=== PATIENT | female | born 1940 | race African-American/Black ===

== ENCOUNTER → 2016-09-18 | Outpatient (CLI) | payer MEDICARE, OTHER ==
[2016-04-15 08:52] VITALS: BP 161/68
[~2016-09-18] MED LIST: DIAZ5TAB PO; ESOM40CA PO; LEVO500T38 PO; LEVO50TA PO; LOSA50TA6 PO; MECL25TA3 PO; PRED-220 PO; PRED20TA PO; PROAIR HFA8.5 GM INH; SERT100T PO; TIOT18CA IH; VENTOLIN HFA18 GM INH
--- NOTE | 2016-09-18 13:03 | CARD ---
APPROVED REPORT EXAM: Two-dimensional and M-mode echocardiogram with Doppler and color Doppler. Other Information Quality : GoodHR: 92bpm Rhythm : NSR INDICATION Pulmonary Hypertention RISK FACTORS Smoking Smoked >40 yrs 2D DIMENSIONS RVDd1.3 (2.9-3.5cm)Left Atrium(2D)2.7 (1.6-4.0cm) IVSd0.6 (0.7-1.1cm)Aortic Root(2D)2.5 (2.0-3.7cm) LVDd3.7 (3.9-5.9cm)LVOT Diameter2.0 (1.8-2.4cm) PWd0.5 (0.7-1.1cm)LVDs2.5 (2.5-4.0cm) FS (%) 31.9 %SV35.8 ml LVEF(%)60.8 (>50%) Aortic Valve AoV Peak Eric.85.2cm/sAoV VTI18.1cm AO Peak GR.2.9mmHgLVOT Peak Eric.72.2cm/s AO Mean GR.2mmHgAVA (VMAX)2.68cm2 Mitral Valve MV E Ktaxrzxs16.8cm/sMV DECEL [id number] MV A Lutmqemr604.6cm/sE/A Ratio0.7 MV A Ebdcdmzg92vk Pulmonary Valve PV Peak Fegdubvy69.0cm/s Tricuspid Valve TR P. Yzpgzqwb892vk/sTR Peak Gr.54mmHg Pulmonary Vein S1 Lkfcjhwm56.1cm/sD2 Ftemnewp67.4cm/s PVa uptbgplu96uzow LEFT VENTRICLE The left ventricle is normal size. There is normal left ventricular wall thickness. The left ventricu lar systolic function is normal. The Ejection Fraction is 60-65%. There is normal LV segmental wall m otion. Transmitral Doppler flow pattern is Grade I-abnormal relaxation pattern. RIGHT VENTRICLE The right ventricle is normal size. There is normal right ventricular wall thickness. The right ventr icular systolic function is normal. ATRIA The left atrium size is normal. The right atrium size is normal. The interatrial septum is intact wit h no evidence for an atrial septal defect or patent foramen ovale as noted on 2-D or Doppler imaging. AORTIC VALVE The aortic valve is mildly sclerotic. The aortic valve is trileaflet. Doppler and Color Flow revealed no significant aortic regurgitation. There is no significant aortic valvular stenosis. MITRAL VALVE The mitral valve leaflets are moderately thickened. There is no evidence of mitral valve prolapse. Th ere is no mitral valve stenosis. Doppler and Color Flow revealed trace mitral regurgitation. TRICUSPID VALVE Doppler and Color Flow revealed mild tricuspid regurgitation. The pulmonary artery systolic pressure is estimated at 57 mmHg. There is moderate pulmonary hypertension. PULMONIC VALVE Doppler and Color Flow revealed no pulmonic valvular regurgitation. There is no pulmonic valvular elsa nosis. GREAT VESSELS The aortic root is normal in size. The ascending aorta is normal in size. The pulmonary artery is nor mal. The IVC is normal in size and collapses >50% with inspiration. PERICARDIAL EFFUSION There is no evidence of significant pericardial effusion. Critical Notification Critical Value: No <Conclusion> The left ventricular systolic function is normal. The Ejection Fraction is 60-65%. There is normal LV segmental wall motion. Transmitral Doppler flow pattern is Grade I-abnormal relaxation pattern. Trace mitral regurgitation. Mild tricuspid regurgitation. The pulmonary artery systolic pressure is estimated at 57 mmHg. There is moderate pulmonary hypertension. There is no evidence of significant pericardial effusion.
== END | disposition home or self-care (01) ==
LOC: ECHO 09:44
PROVIDERS: ATTEND Internal Medicine Critical Care Medicine
DX: I08.1 Rheumatic disorders of both mitral and tricuspid valves (principal)
CPT/HCPCS: 93306

== ENCOUNTER 2017-01-13 08:33 | Inpatient (IN) | payer MEDICARE, OTHER ==
[~2017-01-13] VITALS: Ht 149.9 cm; Wt 49.0 kg
[~2017-01-13 08:33] MED LIST changes: -LEVO500T38 PO; +LEVO500T59 PO
--- NOTE | 2017-01-13 08:38 | PHYS DOC ---
Past Medical History Past Medical History: COPD, Hypertension Past Surgical History: Cholecystectomy, Hysterectomy Additional Past Surgical Histo: partial thyroidectomy Alcohol Use: None Drug Use: None Adult General Chief Complaint Chief Complaint: SHORTNESS OF BREATH HPI HPI Patient is a 76 year old female who presents with was of breath. She states her symptoms started yesterday morning and then he got better and then this morning she felt very weak and short of breath. She denies any fevers chills nausea or productive cough. She states she has her inhalers but didn't use them as of yet because she didn't think that she needed them. She states she feels like she is wheezing. She does have a clerk analyst is Dr. Jason her primary care physicians Dr. Marte. Review of Systems Review of Systems Constitutional: Denies fever or chills [] Eyes: Denies change in visual acuity, redness, or eye pain [] HENT: Denies nasal congestion or sore throat [] Respiratory: Positive for cough and shortness of breath [] Cardiovascular: No additional information not addressed in HPI [] GI: Denies abdominal pain, nausea, vomiting, bloody stools or diarrhea [] : Denies dysuria or hematuria [] Musculoskeletal: Denies back pain or joint pain [] Integument: Denies rash or skin lesions [] Neurologic: Denies headache, focal weakness or sensory changes [] Endocrine: Denies polyuria or polydipsia [] Current Medications Current Medications Current Medications Medications (Trade) Dose Ordered Sig/Celia Start Time Stop Time Status Last Admin Dose Admin Acetaminophen (Tylenol) 1,000 mg 1X ONCE 01/13/17 09:30 01/13/17 09:31 DC 01/13/17 09:42 1,000 MG Albuterol/ Ipratropium (Duoneb) 3 ml 1X ONCE 01/13/17 09:00 01/13/17 09:01 DC 01/13/17 09:00 3 ML Azithromycin 250 ml @ 250 mls/hr 1X ONCE 01/13/17 09:15 01/13/17 10:14 DC 01/13/17 10:07 250 MLS/HR Methylprednisolone Sodium Succinate (SOLU-Medrol 125MG VIAL) 125 mg 1X ONCE 01/13/17 09:15 01/13/17 09:16 DC 01/13/17 09:43 125 MG Allergies Allergies Allergies Coded Allergies Type Severity Reaction Last Updated Verified No Known Medication Allergies Allergy Unknown 04/14/16 Yes codeine Adverse Reaction Intermediate vomiting 04/14/16 Yes Physical Exam Physical Exam Constitutional: Well developed, well nourished, no acute distress, non-toxic appearance. [] HENT: Normocephalic, atraumatic, bilateral external ears normal, oropharynx moist, no oral exudates, nose normal. [] Eyes: PERRLA, EOMI, conjunctiva normal, no discharge. [] Neck: Normal range of motion, no tenderness, supple, no stridor. [] Cardiovascular:Heart rate regular rhythm, no murmur [] Lungs & Thorax: Bilateral breath sounds clear to auscultation [] Abdomen: Bowel sounds normal, soft, no tenderness, no masses, no pulsatile masses. [] Skin: Warm, dry, no erythema, no rash. [] Back: No tenderness, no CVA tenderness. [] Extremities: No tenderness, no cyanosis, no clubbing, ROM intact, no edema. [] Neurologic: Alert and oriented X 3, normal motor function, normal sensory function, no focal deficits noted. [] Psychologic: Affect normal, judgement normal, mood normal. [] Current Patient Data Vital Signs Vital Signs Date Time Temp Pulse Resp B/P (MAP) Pulse Ox O2 Delivery O2 Flow Rate FiO2 01/13/17 10:10 99 24 151/65 (93) 99 Nasal Cannula 2.0 01/13/17 08:45 98.7 98.7 Lab Values Laboratory Tests Test 01/13/17 09:06 White Blood Count 6.0 x10^3/uL (4.0-11.0) Red Blood Count 3.62 x10^6/uL (3.50-5.40) Hemoglobin 11.0 g/dL (12.0-15.5) L Hematocrit 33.1 % (36.0-47.0) L Mean Corpuscular Volume 91 fL (79-100) Mean Corpuscular Hemoglobin 31 pg (25-35) Mean Corpuscular Hemoglobin Concent 33 g/dL (31-37) Red Cell Distribution Width 14.2 % (11.5-14.5) Platelet Count 151 x10^3/uL (140-400) Neutrophils (%) (Auto) 63 % (31-73) Lymphocytes (%) (Auto) 31 % (24-48) Monocytes (%) (Auto) 3 % (0-9) Eosinophils (%) (Auto) 2 % (0-3) Basophils (%) (Auto) 1 % (0-3) Neutrophils # (Auto) 3.8 x10^3uL (1.8-7.7) Lymphocytes # (Auto) 1.9 x10^3/uL (1.0-4.8) Monocytes # (Auto) 0.2 x10^3/uL (0.0-1.1) Eosinophils # (Auto) 0.1 x10^3/uL (0.0-0.7) Basophils # (Auto) 0.1 x10^3/uL (0.0-0.2) Sodium Level 139 mmol/L (136-145) Potassium Level 4.1 mmol/L (3.5-5.1) Chloride Level 100 mmol/L (98-107) Carbon Dioxide Level 35 mmol/L (21-32) H Anion Gap 4 (6-14) L Blood Urea Nitrogen 8 mg/dL (7-20) Creatinine 0.9 mg/dL (0.6-1.0) Estimated GFR (Cockcroft-Gault) 73.5 Glucose Level 110 mg/dL (70-99) H Calcium Level 9.2 mg/dL (8.5-10.1) Magnesium Level 1.9 mg/dL (1.8-2.4) Total Bilirubin 0.4 mg/dL (0.2-1.0) Direct Bilirubin 0.1 mg/dL (0.0-0.2) Aspartate Amino Transferase (AST) 20 U/L (15-37) Alanine Aminotransferase (ALT) 22 U/L (14-59) Alkaline Phosphatase 65 U/L (46-116) Creatine Kinase 82 U/L (26-192) Creatine Kinase MB (Mass) 0.9 ng/mL (0.0-3.6) Creatine Kinase MB Relative Index 1.1 % (0-4) Troponin I Quantitative < 0.017 ng/mL (0.000-0.055) BK-Ums-X-Type Natriuretic Peptide 291 pg/mL (0-449) Total Protein 8.1 g/dL (6.4-8.2) Albumin 3.9 g/dL (3.4-5.0) Lipase 72 U/L (73-393) L Laboratory Tests 01/13/17 09:06 Laboratory Tests 01/13/17 09:06 EKG EKG EKG shows sinus tachycardia [address] elevations or T-wave inversions, normal axis, QTC 447 ms, as interpreted by me. Radiology/Procedures Radiology/Procedures [facility] [address] [place] [address] IMAGING REPORT Signed PATIENT: MAN LAMBERT ACCOUNT: [id number] : 1940 LOCATION: ER AGE: 76 SEX: F EXAM STATUS: PRE ER ORD. PHYSICIAN: DREA ABDUL MD REASON: soa PROCEDURE: PORTABLE CHEST 1V Portable chest, 01/13/2017: History: Shortness of breath, cough Comparison is made to a study from 01/28/2016. The heart size is normal. No pulmonary infiltrate is seen. There is no evidence of pleural fluid. IMPRESSION: No acute cardiopulmonary abnormality is detected. DICTATED and SIGNED BY: KATALINA ALEXANDER MD DATE: 01/13/17902 CC: DREA ABDUL MD; ALISHA MARTE MD ~ Impressions: COPD exacerbation Course & Med Decision Making Course & Med Decision Making Pertinent Labs and Imaging studies reviewed. (See chart for details) Chest x-ray did not show acute abnormality's. She received Solu-Medrol, DuoNeb nebs, and azithromycin IV. Spoke with Dr. Tello regarding consultation and Dr. Marte regarding admission. Patient's in stable and agreeable condition this time. Orders have been written. Dragon Disclaimer Dragon Disclaimer This electronic medical record was generated, in whole or in part, using a voice recognition dictation system. Departure Departure Impression: Primary Impression: COPD with acute exacerbation Disposition: ADMITTED INPATIENT Admitting Physician: Alisha Marte Condition: STABLE Referrals: ALISHA MARTE MD (PCP) DREA ABDUL MD Jan 13, 2017 08:38
[2017-01-13] MEDS ORDERED: IPRATRPIUM/ALBUTEROL 0.5/2.5MG 3 ML NEBU. NEB ONE (09:00)
--- NOTE | 2017-01-13 09:07 | RAD ---
Portable chest, 01/13/2017: History: Shortness of breath, cough Comparison is made to a study from 01/28/2016. The heart size is normal. No pulmonary infiltrate is seen. There is no evidence of pleural fluid. IMPRESSION: No acute cardiopulmonary abnormality is detected.
--- NOTE | 2017-01-13 09:07 | EKG ---
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
[2017-01-13] MEDS ORDERED: AZITHRMYCN 500MG IVPB FOR OMNI 250 ML IV ONE (09:15)
[2017-01-13] MEDS ORDERED: methylPREDNISolone SOD SUCC PF 125 MG/2 ML VIAL. IV ONE (09:15)
[2017-01-13 09:18] LABS: BASO # 0.1 x10^3/uL (0.0-0.2); BASO % 1 % (0-3); EOS % 2 % (0-3); HEMATOCRIT 33.1 % (36.0-47.0); LYMPH # 1.9 x10^3/uL (1.0-4.8); LYMPH % 31 % (24-48); MEAN CORPUSCULAR HEMOGLOBIN 31 pg (25-35); MEAN CORPUSCULAR HGB CONC 33 g/dL (31-37); MEAN CORPUSCULAR VOLUME 91 fL (79-100); MONO % 3 % (0-9); NEUT % 63 % (31-73); PLATELET COUNT 151 x10^3/uL (140-400); RED BLOOD COUNT 3.62 x10^6/uL (3.50-5.40); RED CELL DISTRIBUTION WIDTH 14.2 % (11.5-14.5)
[2017-01-13 09:30] LABS: CALCIUM 9.2 mg/dL (8.5-10.1); CREATININE 0.9 mg/dL (0.6-1.0); GFR 73.5; POTASSIUM 4.1 mmol/L (3.5-5.1)
[2017-01-13] MEDS ORDERED: ACETAMINOPHEN 500 MG TABLET PO ONE (09:30)
[2017-01-13 09:35] LABS: ALBUMIN 3.9 g/dL (3.4-5.0); DIRECT BILIRUBIN 0.1 mg/dL (0.0-0.2); MAGNESIUM 1.9 mg/dL (1.8-2.4); TOTAL BILIRUBIN 0.4 mg/dL (0.2-1.0); TOTAL PROTEIN 8.1 g/dL (6.4-8.2)
[2017-01-13 09:43] LABS: CKMB MASS 0.9 ng/mL (0.0-3.6)
[2017-01-13 10:25] LABS: INR 1.2 (0.8-1.1); PROTHROMBIN TIME PATIENT 14.5 SEC (11.7-14.0)
[2017-01-13 10:43] LABS: BILIRUBIN,URINE NEGATIVE (NEG); GLUCOSE,URINE NEGATIVE (NEG); NITRITE,URINE NEGATIVE (NEG); PROTEIN,URINE NEGATIVE (NEG-TRACE); UROBILINOGEN,URINE 0.2 mg/dL (0.2 mg/dL)
[2017-01-13 10:44] LABS: BACTERIA,URINE 0 /HPF (0-FEW); RBC,URINE 0 /HPF (0-2); SQUAMOUS EPITHELIAL CELL,UR FEW /LPF; WBC,URINE 0 /HPF (0-4)
--- NOTE | 2017-01-13 11:26 | ACF ---
Admit Criteria Forms Admit Criteria Forms Admit Criteria Forms COPD Clinical Indications for Admission to Inpatient Care ([place]/check or initial the applicable condition/criteria) Admission is indicated for ANY ONE of the following (1)(2)(3): [ ]I. Acute exacerbation by high-risk comorbidity(e.g., pneumonia, dysrhythmia, heart failure, pleural effusion, pneumothorax) or severe underlying COPD (eg, baseline FEV1 less than 50% predicted) [X ]II. Inpatient admission required[A] rather than observation care (see Chronic Obstructive Pulmonary Disease: Observation Care) because of ANY ONE of the following: [X ]a) New or pre-existing signs or symptoms of COPD (eg, dyspnea or Tachypnea at rest or with minimal activity) that persist despite outpatient and observation care treatment [ ]b) New-onset hypoxemia (room air SaO2 less than 90%, PO2 less than 60 mm Hg (8.0 kPa)) that persists despite outpatient and observation care treatment [ ]c) Worsening of pre-existing hypoxemia (eg, new or increased requirement for supplemental oxygen to maintain oxygenation at baseline level) that persists despite outpatient and observation care treatment, with oxygen treatment needs performable only in acute inpatient setting [ ]d) Hypercarbia (PCO2 greater than 40 mm Hg (5.3 kPa))-induced respiratory acidosis (pH less than 7.35) that persists despite outpatient and observation care treatment [ ]e) Supplemental oxygen or respiratory treatments for over 24 hours that are performable only in acute inpatient setting [ ]f) Chest tube placement with active evacuation (e.g., suction, drainage) (6) [ ]g) Other condition, treatment or monitoring requiring inpatient admission [ ]III. Planned invasive surgical or diagnostic procedures requiring acute- care hospitalization [ ]IV. Acute respiratory failure (e.g., uncompensated hypercarbia, severe hypoxemia) [ ]V. Severe comorbid condition (e.g., severe steroid myopathy, acute vertebral fracture) that has acutely worsened pulmonary function [ ]. Altered mental status that is severe or persistent Extended stay beyond goal length of stay may be needed for (29)(30)(31)(32)(33) : [ ]a ) Respiratory Failure. [ ]b) Severe or persisting hypoxemia or hypercarbia [ ]c) Severe or persistent dyspnea [ ]d) Clinically significant Comorbidities (e.g. chronic heart failure, atrial fibrillation with rapid response, pneumonia)(36) [ ]e) Malnutrition (33) The original [facility] [employer] content created by [facility] [employer] has been revised. The portions of the content which have been revised are identified through the use of italic text, and [facility] has neither reviewed nor approved the modified material. All other unmodified content is copyright [facility] [employer]. Please see references footnoted in the original [facility] [employer] edition 2014 ALEXANDRA LE Jan 13, 2017 11:26
[2017-01-13] MEDS ORDERED: diazePAM 5 MG TABLET PO ONE (12:15)
[2017-01-13 12:55] VITALS: BP 148/65
[2017-01-13] MEDS ORDERED: MULT1TAB52 PO (14:02)
[2017-01-13] MEDS ORDERED: BENZ200C47 PO (14:02)
[2017-01-13] MEDS ORDERED: CALC500T30 PO (14:02)
[2017-01-13] MEDS ORDERED: BUDE10.22 IH (14:20)
[2017-01-13] MEDS ORDERED: ESOM40CA PO (14:20)
[2017-01-13] MEDS ORDERED: MECLIZINE HCL 12.5 MG TABLET. PO PRN (14:30)
[2017-01-13 15:00] VITALS: BP 101/37
--- NOTE | 2017-01-13 15:07 | PDOC ---
Provider Note Provider Note dictated DAVID RICHTER MD Jan 13, 2017 15:07
--- NOTE | 2017-01-13 15:24 | CONS ---
DATE OF CONSULTATION: 01/13/2017 ATTENDING PHYSICIAN: Dr. Marte REASON FOR CONSULTATION: Dyspnea, cough. HISTORY OF PRESENT ILLNESS: The patient is a pleasant 76-year-old female who has history of severe oxygen dependent chronic obstructive airway disease and sees me in the office. She presented to the hospital with complaint of cough, which has been nonproductive since Friday. The patient was starting to hurt in her chest with the coughing. The patient then began to have shortness of breath. She was seen in the Emergency Room where a chest x-ray was reviewed by me and does not show any definite infiltrates. She was having pain in the back of the chest as well. No fever, no chills, no headaches. No nausea, vomiting or diarrhea. No focal weakness. No leg edema. She has been on home oxygen at 2 liters on a 24-hour basis and saturations were 95% on 2 liters. I have been asked to see her for further evaluation. PAST MEDICAL HISTORY: Significant for history of severe chronic obstructive pulmonary disease, which is oxygen dependent; history of hypertension. PAST SURGICAL HISTORY: Cholecystectomy, hysterectomy and partial thyroidectomy. ALLERGIES: CODEINE. CURRENT MEDICATIONS: Reviewed as listed in the MRAD. REVIEW OF SYSTEMS: Twelve-point system obtained. Pertinent positive discussed in my history of present illness, otherwise noncontributory. All systems that were negative were reviewed as well. SOCIAL HISTORY: Has a long history of tobacco use, but no longer smokes cigarettes. PHYSICAL EXAMINATION: GENERAL: She is awake, following commands. VITAL SIGNS: Reviewed. Blood pressure 148/65, pulse ox is 95% on 2 liters, afebrile. HEENT: Sclerae nonicteric. NECK: Supple. LUNGS: Diminished breath sounds with prolonged expiratory phase. No wheezing. CARDIOVASCULAR: Regular rate and rhythm. ABDOMEN: Soft. EXTREMITIES: With no pitting edema. LABORATORY DATA: Reviewed. White cell count 6.0, hemoglobin 11.0 and platelets are 151. BUN is 8, creatinine 0.9. IMPRESSION: 1. Acute exacerbation of chronic obstructive pulmonary disease triggered by acute bronchitis. 2. Acute bronchitis, probably viral. No definite pneumonia seen on the chest x-ray. 3. History of chronic hypoxic respiratory failure, currently on 2 liters, which is her baseline. RECOMMENDATIONS: 1. Continue with present bronchodilators with DuoNeb. 2. Continue with steroid nebulizer. 3. IV steroids. 4. Noncontrast CT chest to better assess for any lung infiltrates. 5. Cough suppressant with Tessalon Pearle. 6. Continue oxygen at 2 liters. 7. Add empiric antibiotic. 8. We will follow along with you. Possible discharge in 24 hours. DAVID RICHTER MD DR: KARI/harman JOB#: [id number] / [id number]
[2017-01-13] MEDS ORDERED: IPRATRPIUM/ALBUTEROL 0.5/2.5MG 3 ML NEBU. NEB SCH (16:00)
--- NOTE | 2017-01-13 16:22 | RAD ---
CT of the chest without contrast, 01/13/2017: History: Shortness of breath Noncontrast scans were obtained as requested. Comparison is made to a study from 03/13/2015. There is mild calcific plaquing of the thoracic aorta without evidence of aneurysm. The heart size is normal. Small mediastinal lymph nodes are evident without pathologic enlargement. There are mild emphysematous changes in the lungs. There are unchanged bilateral apical pleural-parenchymal opacities compatible with scarring. A few other scattered linear parenchymal scars are present in both lungs. There is an unchanged streaky opacity in the posterior aspect of the right upper lobe compatible with scarring. Mild peripheral infiltrate in the anterolateral inferior aspect of the right middle lobe medially has progressed slightly. There is no other evidence of acute consolidation or mass. There is no evidence of pleural fluid. IMPRESSION: 1. Emphysema with pleural/parenchymal scarring. 2. Minimal peripheral infiltrate in the anterior aspect of the right middle lobe has progressed slightly since 03/13/2015. This may represent progressive scarring or active inflammation. A neoplastic etiology is less likely. PQRS Compliance Statement: One or more of the following individualized dose reduction techniques were utilized for this examination: 1. Automated exposure control 2. Adjustment of the mA and/or kV according to patient size 3. Use of iterative reconstruction technique
[2017-01-13] MEDS: DOXYCYCLINE HYCLATE 100 MG TABLET PO SCH ×2 (17:26→21:03)
[2017-01-13] MEDS: BUDESONIDE 0.5 MG/2 ML NEBU. NEB SCH (19:15)
[2017-01-13] MEDS: ALBUTEROL SULFATE 2.5 MG/3 ML NEBU. NEB SCH (19:15)
[2017-01-13 19:49] VITALS: BP 136/58
[2017-01-13] MEDS ORDERED: NON FORMULARY ITEM (Budesonide/Formoterol Fumarate (Symbicort 80-4.5 Mcg Inhaler) 2 PUFF) IH SCH (21:00)
[2017-01-13] MEDS ORDERED: BENZONATATE 100 MG CAPSULE. PO PRN (21:00)
[2017-01-13] MEDS: methylPREDNISolone SOD SUCC PF 125 MG/2 ML VIAL. IV SCH (21:03)
[2017-01-13 22:44] VITALS: BP 173/74
[2017-01-14 03:00] VITALS: BP 139/87
[2017-01-14 05:24] LABS: BASO % 0 % (0-3); EOS % 0 % (0-3); HEMATOCRIT 29.6 % (36.0-47.0); HEMOGLOBIN 10.2 g/dL (12.0-15.5); LYMPH # 0.8 x10^3/uL (1.0-4.8); LYMPH % 12 % (24-48); MEAN CORPUSCULAR HEMOGLOBIN 31 pg (25-35); MEAN CORPUSCULAR HGB CONC 34 g/dL (31-37); MEAN CORPUSCULAR VOLUME 90 fL (79-100); MONO % 1 % (0-9); NEUT % 87 % (31-73); PLATELET COUNT 140 x10^3/uL (140-400); RED CELL DISTRIBUTION WIDTH 14.2 % (11.5-14.5); WHITE BLOOD COUNT 6.5 x10^3/uL (4.0-11.0)
[2017-01-14 05:39] LABS: CREATININE 0.8 mg/dL (0.6-1.0); GFR 84.2
[2017-01-14] MEDS: LEVOTHYROXINE 50 MCG TABLET PO SCH (05:56)
[2017-01-14] MEDS: methylPREDNISolone SOD SUCC PF 125 MG/2 ML VIAL. IV SCH ×3 (05:57→20:57)
[2017-01-14 07:00] VITALS: BP 142/59
[2017-01-14] MEDS: BUDESONIDE 0.5 MG/2 ML NEBU. NEB SCH ×2 (07:41→20:15)
[2017-01-14] MEDS: ALBUTEROL SULFATE 2.5 MG/3 ML NEBU. NEB SCH ×4 (07:41→20:15)
[2017-01-14 07:42] LABS: PLT ESTIMATE ADEQUATE (ADEQUATE)
[2017-01-14] MEDS ORDERED: NON FORMULARY ITEM (Albuterol Sulfate (Proair Hfa Inhaler) 1 PUFF) INH SCH (08:00)
[2017-01-14] MEDS ORDERED: NON FORMULARY ITEM (Tiotropium Bromide (Spiriva) 2 INH) IH SCH (08:00)
--- NOTE | 2017-01-14 08:06 | PDOC ---
PROGRESS NOTES Subjective Subjective Patient reports breathing (at rest) is better than at admission. Hasn't been out of bed yet. Doesn't feel ready to go home today. Objective Objective Vital Signs Date Time Temp Pulse Resp B/P (MAP) Pulse Ox O2 Delivery O2 Flow Rate FiO2 01/14/17 07:43 100 Nasal Cannula 2.0 01/14/17 03:00 98.3 61 18 139/87 (104) 98.3 Intake and Output 01/14/17 06:59 Intake Total 500 ml Output Total 1150 ml Balance -650 ml Intake Oral 250 ml IV Total 250 ml Output Urine Total 1150 ml # Voids 2 Physical Exam Abdomen: Normal bowel sounds, Soft, No tenderness Heart: Regular rate Extremities: No edema General: Alert, Oriented X3, No acute distress Lungs: Other (BS moderately decreased throughout, no wheezes, no cough during exam) Assessment Assessment Problems Medical Problems: (1) COPD with acute exacerbation Status: Acute Plan Plan of Care 1. Acute on chronic respiratory failure with acute bronchitis - stable, not hypoxic on her usual O2 per NC. CXR without infiltrate. Some improvement in patient's symptoms overnight. Continue IV Solumedrol, Doxycycine, O2 and nebs. Increased activity level today. 2. chronic anxiety - stable, intermittent tachycardia is not unusual for patient. Continue home meds. 3. HTN - continue home meds. 4. glucose intolerance - diet controlled, continue ADA diet. 5. hypothyroidism - good on recent lab, continue present dose of Levothyroxine. Comment Review of Relevant I have reviewed the following items elliott (where applicable) has been applied. Labs Laboratory Tests Test 01/13/17 09:06 01/13/17 10:05 01/13/17 16:00 01/13/17 22:05 White Blood Count 6.0 x10^3/uL (4.0-11.0) Red Blood Count 3.62 x10^6/uL (3.50-5.40) Hemoglobin 11.0 g/dL (12.0-15.5) Hematocrit 33.1 % (36.0-47.0) Mean Corpuscular Volume 91 fL (79-100) Mean Corpuscular Hemoglobin 31 pg (25-35) Mean Corpuscular Hemoglobin Concent 33 g/dL (31-37) Red Cell Distribution Width 14.2 % (11.5-14.5) Platelet Count 151 x10^3/uL (140-400) Neutrophils (%) (Auto) 63 % (31-73) Lymphocytes (%) (Auto) 31 % (24-48) Monocytes (%) (Auto) 3 % (0-9) Eosinophils (%) (Auto) 2 % (0-3) Basophils (%) (Auto) 1 % (0-3) Neutrophils # (Auto) 3.8 x10^3uL (1.8-7.7) Lymphocytes # (Auto) 1.9 x10^3/uL (1.0-4.8) Monocytes # (Auto) 0.2 x10^3/uL (0.0-1.1) Eosinophils # (Auto) 0.1 x10^3/uL (0.0-0.7) Basophils # (Auto) 0.1 x10^3/uL (0.0-0.2) Sodium Level 139 mmol/L (136-145) Potassium Level 4.1 mmol/L (3.5-5.1) Chloride Level 100 mmol/L (98-107) Carbon Dioxide Level 35 mmol/L (21-32) Anion Gap 4 (6-14) Blood Urea Nitrogen 8 mg/dL (7-20) Creatinine 0.9 mg/dL (0.6-1.0) Estimated GFR (Cockcroft-Gault) 73.5 Glucose Level 110 mg/dL (70-99) Lactic Acid Level 0.7 mmol/L (0.4-2.0) Calcium Level 9.2 mg/dL (8.5-10.1) Magnesium Level 1.9 mg/dL (1.8-2.4) Total Bilirubin 0.4 mg/dL (0.2-1.0) Direct Bilirubin 0.1 mg/dL (0.0-0.2) Aspartate Amino Transf (AST/SGOT) 20 U/L (15-37) Alanine Aminotransferase (ALT/SGPT) 22 U/L (14-59) Alkaline Phosphatase 65 U/L (46-116) Creatine Kinase 82 U/L (26-192) Creatine Kinase MB (Mass) 0.9 ng/mL (0.0-3.6) Creatine Kinase MB Relative Index 1.1 % (0-4) Troponin I Quantitative < 0.017 ng/mL (0.000-0.055) < 0.017 ng/mL (0.000-0.055) < 0.017 ng/mL (0.000-0.055) FY-Nzb-[id number]-Type Natriuretic Peptide 291 pg/mL (0-449) Total Protein 8.1 g/dL (6.4-8.2) Albumin 3.9 g/dL (3.4-5.0) Lipase 72 U/L (73-393) Procalcitonin < 0.10 ng/mL (0.00-0.10) Prothrombin Time 14.5 SEC (11.7-14.0) Prothromb Time International Ratio 1.2 (0.8-1.1) Urine Collection Type Unknown Urine Color Yellow Urine Clarity Clear Urine pH 6.0 Urine Specific [place] <=1.005 Urine Protein Negative mg/dL (NEG-TRACE) Urine Glucose (UA) Negative mg/dL (NEG) Urine Ketones (Stick) Negative mg/dL (NEG) Urine Blood Negative (NEG) Urine Nitrite Negative (NEG) Urine Bilirubin Negative (NEG) Urine Urobilinogen Dipstick 0.2 mg/dL (0.2 mg/dL) Urine Leukocyte Esterase Negative (NEG) Urine RBC 0 /HPF (0-2) Urine WBC 0 /HPF (0-4) Urine Squamous Epithelial Cells Few /LPF Urine Bacteria 0 /HPF (0-FEW) Test 01/14/17 04:33 White Blood Count 6.5 x10^3/uL (4.0-11.0) Red Blood Count 3.30 x10^6/uL (3.50-5.40) Hemoglobin 10.2 g/dL (12.0-15.5) Hematocrit 29.6 % (36.0-47.0) Mean Corpuscular Volume 90 fL (79-100) Mean Corpuscular Hemoglobin 31 pg (25-35) Mean Corpuscular Hemoglobin Concent 34 g/dL (31-37) Red Cell Distribution Width 14.2 % (11.5-14.5) Platelet Count 140 x10^3/uL (140-400) Neutrophils (%) (Auto) 87 % (31-73) Lymphocytes (%) (Auto) 12 % (24-48) Monocytes (%) (Auto) 1 % (0-9) Eosinophils (%) (Auto) 0 % (0-3) Basophils (%) (Auto) 0 % (0-3) Neutrophils # (Auto) 5.7 x10^3uL (1.8-7.7) Lymphocytes # (Auto) 0.8 x10^3/uL (1.0-4.8) Monocytes # (Auto) 0.1 x10^3/uL (0.0-1.1) Eosinophils # (Auto) 0.0 x10^3/uL (0.0-0.7) Basophils # (Auto) 0.0 x10^3/uL (0.0-0.2) Segmented Neutrophils % 95 % (35-66) Band Neutrophils % 1 % (0-9) Lymphocytes % 4 % (24-48) Platelet Estimate Adequate (ADEQUATE) Sodium Level 138 mmol/L (136-145) Potassium Level 4.0 mmol/L (3.5-5.1) Chloride Level 100 mmol/L (98-107) Carbon Dioxide Level 34 mmol/L (21-32) Anion Gap 4 (6-14) Blood Urea Nitrogen 9 mg/dL (7-20) Creatinine 0.8 mg/dL (0.6-1.0) Estimated GFR (Cockcroft-Gault) 84.2 Glucose Level 153 mg/dL (70-99) Calcium Level 9.0 mg/dL (8.5-10.1) Laboratory Tests Test 01/13/17 09:06 01/13/17 10:05 01/13/17 16:00 01/13/17 22:05 White Blood Count 6.0 x10^3/uL (4.0-11.0) Red Blood Count 3.62 x10^6/uL (3.50-5.40) Hemoglobin 11.0 g/dL (12.0-15.5) Hematocrit 33.1 % (36.0-47.0) Mean Corpuscular Volume 91 fL (79-100) Mean Corpuscular Hemoglobin 31 pg (25-35) Mean Corpuscular Hemoglobin Concent 33 g/dL (31-37) Red Cell Distribution Width 14.2 % (11.5-14.5) Platelet Count 151 x10^3/uL (140-400) Neutrophils (%) (Auto) 63 % (31-73) Lymphocytes (%) (Auto) 31 % (24-48) Monocytes (%) (Auto) 3 % (0-9) Eosinophils (%) (Auto) 2 % (0-3) Basophils (%) (Auto) 1 % (0-3) Neutrophils # (Auto) 3.8 x10^3uL (1.8-7.7) Lymphocytes # (Auto) 1.9 x10^3/uL (1.0-4.8) Monocytes # (Auto) 0.2 x10^3/uL (0.0-1.1) Eosinophils # (Auto) 0.1 x10^3/uL (0.0-0.7) Basophils # (Auto) 0.1 x10^3/uL (0.0-0.2) Sodium Level 139 mmol/L (136-145) Potassium Level 4.1 mmol/L (3.5-5.1) Chloride Level 100 mmol/L (98-107) Carbon Dioxide Level 35 mmol/L (21-32) Anion Gap 4 (6-14) Blood Urea Nitrogen 8 mg/dL (7-20) Creatinine 0.9 mg/dL (0.6-1.0) Estimated GFR (Cockcroft-Gault) 73.5 Glucose Level 110 mg/dL (70-99) Lactic Acid Level 0.7 mmol/L (0.4-2.0) Calcium Level 9.2 mg/dL (8.5-10.1) Magnesium Level 1.9 mg/dL (1.8-2.4) Total Bilirubin 0.4 mg/dL (0.2-1.0) Direct Bilirubin 0.1 mg/dL (0.0-0.2) Aspartate Amino Transf (AST/SGOT) 20 U/L (15-37) Alanine Aminotransferase (ALT/SGPT) 22 U/L (14-59) Alkaline Phosphatase 65 U/L (46-116) Creatine Kinase 82 U/L (26-192) Creatine Kinase MB (Mass) 0.9 ng/mL (0.0-3.6) Creatine Kinase MB Relative Index 1.1 % (0-4) Troponin I Quantitative < 0.017 ng/mL (0.000-0.055) < 0.017 ng/mL (0.000-0.055) < 0.017 ng/mL (0.000-0.055) TO-Qeo-Z-Type Natriuretic Peptide 291 pg/mL (0-449) Total Protein 8.1 g/dL (6.4-8.2) Albumin 3.9 g/dL (3.4-5.0) Lipase 72 U/L (73-393) Procalcitonin < 0.10 ng/mL (0.00-0.10) Prothrombin Time 14.5 SEC (11.7-14.0) Prothromb Time International Ratio 1.2 (0.8-1.1) Urine Collection Type Unknown Urine Color Yellow Urine Clarity Clear Urine pH 6.0 Urine Specific [place] <=1.005 Urine Protein Negative mg/dL (NEG-TRACE) Urine Glucose (UA) Negative mg/dL (NEG) Urine Ketones (Stick) Negative mg/dL (NEG) Urine Blood Negative (NEG) Urine Nitrite Negative (NEG) Urine Bilirubin Negative (NEG) Urine Urobilinogen Dipstick 0.2 mg/dL (0.2 mg/dL) Urine Leukocyte Esterase Negative (NEG) Urine RBC 0 /HPF (0-2) Urine WBC 0 /HPF (0-4) Urine Squamous Epithelial Cells Few /LPF Urine Bacteria 0 /HPF (0-FEW) Test 01/14/17 04:33 White Blood Count 6.5 x10^3/uL (4.0-11.0) Red Blood Count 3.30 x10^6/uL (3.50-5.40) Hemoglobin 10.2 g/dL (12.0-15.5) Hematocrit 29.6 % (36.0-47.0) Mean Corpuscular Volume 90 fL (79-100) Mean Corpuscular Hemoglobin 31 pg (25-35) Mean Corpuscular Hemoglobin Concent 34 g/dL (31-37) Red Cell Distribution Width 14.2 % (11.5-14.5) Platelet Count 140 x10^3/uL (140-400) Neutrophils (%) (Auto) 87 % (31-73) Lymphocytes (%) (Auto) 12 % (24-48) Monocytes (%) (Auto) 1 % (0-9) Eosinophils (%) (Auto) 0 % (0-3) Basophils (%) (Auto) 0 % (0-3) Neutrophils # (Auto) 5.7 x10^3uL (1.8-7.7) Lymphocytes # (Auto) 0.8 x10^3/uL (1.0-4.8) Monocytes # (Auto) 0.1 x10^3/uL (0.0-1.1) Eosinophils # (Auto) 0.0 x10^3/uL (0.0-0.7) Basophils # (Auto) 0.0 x10^3/uL (0.0-0.2) Segmented Neutrophils % 95 % (35-66) Band Neutrophils % 1 % (0-9) Lymphocytes % 4 % (24-48) Platelet Estimate Adequate (ADEQUATE) Sodium Level 138 mmol/L (136-145) Potassium Level 4.0 mmol/L (3.5-5.1) Chloride Level 100 mmol/L (98-107) Carbon Dioxide Level 34 mmol/L (21-32) Anion Gap 4 (6-14) Blood Urea Nitrogen 9 mg/dL (7-20) Creatinine 0.8 mg/dL (0.6-1.0) Estimated GFR (Cockcroft-Gault) 84.2 Glucose Level 153 mg/dL (70-99) Calcium Level 9.0 mg/dL (8.5-10.1) Medications Current Medications Albuterol/ Ipratropium (Duoneb) 3 ml 1X ONCE NEB Last administered on 09:00; Start 01/13/17 at 09:00; Stop 01/13/17 at 09:01; Status DC Methylprednisolone Sodium Succinate (SOLU-Medrol 125MG VIAL) 125 mg 1X ONCE IV Last administered on 01/13/17 09:43; Start 01/13/17 at 09:15; Stop 01/13/17 at 09:16; Status DC Azithromycin 250 ml @ 250 mls/hr 1X ONCE IV Last administered on 01/13/17 10 :07; Start 01/13/17 at 09:15; Stop 01/13/17 at 10:14; Status DC Acetaminophen (Tylenol) 1,000 mg 1X ONCE PO Last administered on 01/13/17 09: 42; Start 01/13/17 at 09:30; Stop 01/13/17 at 09:31; Status DC Diazepam (Valium) 5 mg 1X ONCE PO Last administered on 01/13/17 12:11; Start 01/13/17 at 12:15; Stop 01/13/17 at 12:16; Status DC Calcium Carbonate/ Glycine (Oscal) 500 mg DAILY PO ; Start 01/14/17 at 09:00 Diazepam (Valium) 5 mg DAILY08 PO ; Start 01/14/17 at 08:00 Levothyroxine Sodium (Synthroid) 50 mcg DAILY06 PO Last administered on 05:56; Start 01/14/17 at 06:00 Losartan Potassium (Cozaar) 50 mg DAILY PO ; Start 01/14/17 at 09:00 Non-Formulary Medication 1 puff DAILY08 INH ; Start 01/14/17 at 08:00; Status UNV Benzonatate (Tessalon Perle) 200 mg PRN TID PRN PO COUGH Last administered on 00:51; Start 01/13/17 at 21:00 Non-Formulary Medication 2 puff BID IH ; Start 01/13/17 at 21:00; Status UNV Pantoprazole Sodium (Protonix) 40 mg DAILYAC PO ; Start 01/14/17 at 07:30 Meclizine HCl (Antivert) 25 mg PRN TID PRN PO DIZZINESS; Start 01/13/17 at 14: 30 Multivitamins (Thera M Plus) 1 tab DAILY PO ; Start 01/14/17 at 09:00 Non-Formulary Medication 2 inh DAILY08 IH ; Start 01/14/17 at 08:00; Status UNV Sertraline HCl (Zoloft) 100 mg DAILY PO ; Start 01/14/17 at 09:00 Methylprednisolone Sodium Succinate (SOLU-Medrol 125MG VIAL) 60 mg Q8HRS IV Last administered on 01/14/17 05:57; Start 01/13/17 at 22:00 Albuterol/ Ipratropium (Duoneb) 3 ml RTQID NEB Last administered on 01/13/17 15:53; Start 01/13/17 at 16:00; Stop 01/13/17 at 17:01; Status DC Budesonide (Pulmicort) 0.5 mg RTBID NEB Last administered on 01/14/17 07:41; Start 01/13/17 at 20:00 Doxycycline Hyclate (Vibra-Tab) 100 mg BID PO Last administered on 01/13/17 21 :03; Start 01/13/17 at 15:30 Albuterol Sulfate (Ventolin Neb Soln) 2.5 mg RTQID NEB Last administered on t 07:41; Start 01/13/17 at 20:00 Non-Formulary Medication 1 ea DAILY INH ; Start 01/14/17 at 09:00 Active Scripts Active Nexium Capsule (Esomeprazole Magnesium) 40 Mg Capsule.dr 1 Cap PO DAILY Symbicort 80-4.5 Mcg Inhaler (Budesonide/Formoterol Fumarate) 10.2 Gm Hfa.aer.ad 2 Puff IH BID Meclizine Hcl 25 Mg Tablet 1 Tab PO TID PRN Ventolin Hfa Inhaler (Albuterol Sulfate) 18 Gm Hfa.aer.ad 2-4 Puff INH PRN Q4HRS PRN Reported Benzonatate 200 Mg Capsule 1 Cap PO PRN TID Calcium (Calcium Carbonate) 500 Mg Tablet 500 Mg PO Multivitamins (Multivitamin) 1 Each Tablet 1 Tab PO DAILY Losartan Potassium 50 Mg Tablet 50 Mg PO DAILY Proair Hfa Inhaler (Albuterol Sulfate) 8.5 Gm Hfa.aer.ad 1 Puff INH DAILY08 Spiriva (Tiotropium Redford) 18 Mcg Cap.w.dev 2 Inh IH DAILY08 Valium (Diazepam) 5 Mg Tablet 5 Mg PO DAILY08 Zoloft (Sertraline Hcl) 100 Mg Tablet 100 Mg PO DAILY08 Synthroid (Levothyroxine Sodium) 50 Mcg Tablet 50 Mcg PO DAILY06 Vitals/I & O Vital Sign - Last 24 Hours 01/13/17 01/13/17 01/13/17 01/13/17 08:45 09:01 09:44 10:10 Temp 98.7 98.7 Pulse 107 113 99 Resp 32 28 24 B/P (MAP) 189/104 (132) 142/65 (90) 151/65 (93) Pulse Ox 99 98 100 99 O2 Delivery Nasal Cannula Nasal Cannula Nasal Cannula Nasal Cannula O2 Flow Rate 2.0 2.0 2.0 01/13/17 01/13/17 01/13/17 01/13/17 11:43 12:55 12:55 12:55 Temp 98.1 98.1 98.1 98.1 Pulse 95 107 107 Resp 18 18 B/P (MAP) 132/58 (82) 148/65 (92) 148/65 (92) Pulse Ox 100 95 95 O2 Delivery Room Air Room Air Room Air Nasal Cannula O2 Flow Rate 2.0 01/13/17 01/13/17 01/13/17 01/13/17 15:00 15:54 19:15 19:17 Temp 98.3 98.3 Pulse 81 Resp 18 B/P (MAP) 101/37 (58) Pulse Ox 97 100 96 96 O2 Delivery Room Air Nasal Cannula Nasal Cannula Nasal Cannula O2 Flow Rate 2.0 2.0 2.0 01/13/17 01/13/17 01/13/17 01/14/17 19:49 20:00 22:44 03:00 Temp 98.5 98.3 98.5 98.3 Pulse 103 85 61 Resp 18 18 B/P (MAP) 136/58 (84) 173/74 (107) 139/87 (104) Pulse Ox 97 96 94 O2 Delivery Nasal Cannula Nasal Cannula Room Air Nasal Cannula O2 Flow Rate 2.0 2.0 2.0 01/14/17 07:43 Pulse Ox 100 O2 Delivery Nasal Cannula O2 Flow Rate 2.0 Intake and Output 01/13/17 01/13/17 01/14/17 14:59 22:59 06:59 Intake Total 250 ml 250 ml Output Total 150 ml 200 ml 800 ml Balance 100 ml 50 ml -800 ml COSMO CASTRO MD Jan 14, 2017 08:06
[2017-01-14] MEDS: SERTRALINE 50 MG TABLET. PO SCH (08:15)
[2017-01-14] MEDS: MULTIVITAMIN with MINERAL TABLET. PO SCH (08:15)
[2017-01-14] MEDS: CALCIUM CARBONATE 500 MG TABLET PO SCH (08:15)
[2017-01-14] MEDS: LOSARTAN POTASSIUM 50 MG TABLET. PO SCH (08:15)
[2017-01-14] MEDS: diazePAM 5 MG TABLET PO SCH (08:16)
[2017-01-14] MEDS: PANTOPRAZOLE 40 MG TABLET.DR. PO SCH (08:16)
--- NOTE | 2017-01-14 08:40 | HP ---
ADMIT DATE: 01/13/2017 CHIEF COMPLAINT: Shortness of breath. HISTORY OF PRESENT ILLNESS: The patient is a 76-year-old female with chronic respiratory failure due to COPD. She presented to the Emergency Room with the above complaint. She reported a several-day history of increasing dyspnea on exertion. She was using her usual oxygen per nasal cannula and doing her breathing treatments as needed, but her symptoms gradually worsened. She felt increasing difficulty in getting her breath even at rest, so she came to the Emergency Room. Initial evaluation there showed her to not be hypoxic on oxygen per nasal cannula. She had mild tachycardia. Chest x-ray was without acute infiltrate. She was given 1 dose of Solu-Medrol and admitted for further treatment. PAST MEDICAL HISTORY: Chronic respiratory failure due to COPD, glucose intolerance, hypertension, hypothyroidism, chronic anxiety, GERD. PAST SURGICAL HISTORY: Partial thyroidectomy, partial hysterectomy due to cervical cancer, cholecystectomy. ALLERGIES: THE PATIENT IS ALLERGIC OR INTOLERANT TO CODEINE AND CLONIDINE. HOME MEDICATIONS: Spiriva 2 puffs daily, Symbicort 80/4.5 two puffs 1 to 2 times daily, albuterol p.r.n., levothyroxine 50 mcg daily, losartan 50 mg daily, sertraline 100 mg daily, Valium 5 mg daily, Nexium 40 mg daily. FAMILY HISTORY: Noncontributory. SOCIAL HISTORY: The patient is and lives at home with her . She has a long smoking history, but quit smoking in 2003. She does not drink alcohol to excess. REVIEW OF SYSTEMS: The patient denies fever or chills. She denies chest pain or palpitations. She has had an occasional dry cough, but not a productive cough. She did not use her Symbicort for 2 days prior to this admission, as she felt that she was developing oral jadyn. She has nystatin at home to use as needed for this, but she did not start it, as her oral symptoms seemed much improved with holding the Symbicort. She denies abdominal pain, nausea, vomiting or problems with her bowels. She denies lower extremity edema. Her mood has been good with her usual medications. PHYSICAL EXAMINATION: GENERAL: The patient is alert and oriented x 3, resting comfortably in bed in no acute distress. HEENT: PERRL, EOMI, sclerae clear. Oropharynx: Mucous membranes moist. NECK: Supple, without lymphadenopathy. CHEST: Breath sounds are moderately decreased throughout. No wheezes heard. No cough during exam. CARDIOVASCULAR: Regular rhythm without murmur. ABDOMEN: Soft, nontender, normoactive bowel sounds are present. EXTREMITIES: Without edema. ASSESSMENT AND PLAN: 1. Acute on chronic respiratory failure with acute bronchitis. The patient is stable. She is not hypoxic on oxygen per nasal cannula. Chest x-ray and CT of the chest without acute infiltrates. The patient reports she has had some improvement in her symptoms overnight. She has been started on Solu-Medrol and oral doxycycline and has been seen by Dr. Tello. We will continue the present medications. She is advised increased activity level today to see how she feels with this. 2. Chronic anxiety. This is stable for her. She does show some intermittent tachycardia, which is not unusual for her. We will continue her home medications. 3. Hypertension. This has been well controlled. Continue losartan. 4. Glucose intolerance. This is diet controlled for the patient. An ADA diet has been ordered. 5. Hypothyroidism. This was good on recent lab in our office. Continue her present dose of levothyroxine. COSMO CASTRO MD DR: ALBERT/harman JOB#: [id number] / [id number] PEDRO LUIS
[2017-01-14] MEDS: DOXYCYCLINE HYCLATE 100 MG TABLET PO SCH ×2 (09:00→20:56)
--- NOTE | 2017-01-14 10:00 | PDOC ---
PULMONARY PROGRESS NOTES Subjective feels better less soa Vitals Vital Signs Date Time Temp Pulse Resp B/P (MAP) Pulse Ox O2 Delivery O2 Flow Rate FiO2 01/14/17 08:15 90 142/59 01/14/17 07:43 100 Nasal Cannula 2.0 01/14/17 07:00 97.5 20 97.5 General: Alert, No acute distress Lungs: Other (decrease bs) Cardiovascular: S1 Abdomen: Soft Neuro Exam: Alert Extremities: No Edema Skin: Warm Labs Laboratory Tests Test 01/13/17 09:06 01/13/17 10:05 01/13/17 16:00 01/13/17 22:05 White Blood Count 6.0 x10^3/uL (4.0-11.0) Red Blood Count 3.62 x10^6/uL (3.50-5.40) Hemoglobin 11.0 g/dL (12.0-15.5) Hematocrit 33.1 % (36.0-47.0) Mean Corpuscular Volume 91 fL (79-100) Mean Corpuscular Hemoglobin 31 pg (25-35) Mean Corpuscular Hemoglobin Concent 33 g/dL (31-37) Red Cell Distribution Width 14.2 % (11.5-14.5) Platelet Count 151 x10^3/uL (140-400) Neutrophils (%) (Auto) 63 % (31-73) Lymphocytes (%) (Auto) 31 % (24-48) Monocytes (%) (Auto) 3 % (0-9) Eosinophils (%) (Auto) 2 % (0-3) Basophils (%) (Auto) 1 % (0-3) Neutrophils # (Auto) 3.8 x10^3uL (1.8-7.7) Lymphocytes # (Auto) 1.9 x10^3/uL (1.0-4.8) Monocytes # (Auto) 0.2 x10^3/uL (0.0-1.1) Eosinophils # (Auto) 0.1 x10^3/uL (0.0-0.7) Basophils # (Auto) 0.1 x10^3/uL (0.0-0.2) Sodium Level 139 mmol/L (136-145) Potassium Level 4.1 mmol/L (3.5-5.1) Chloride Level 100 mmol/L (98-107) Carbon Dioxide Level 35 mmol/L (21-32) Anion Gap 4 (6-14) Blood Urea Nitrogen 8 mg/dL (7-20) Creatinine 0.9 mg/dL (0.6-1.0) Estimated GFR (Cockcroft-Gault) 73.5 Glucose Level 110 mg/dL (70-99) Lactic Acid Level 0.7 mmol/L (0.4-2.0) Calcium Level 9.2 mg/dL (8.5-10.1) Magnesium Level 1.9 mg/dL (1.8-2.4) Total Bilirubin 0.4 mg/dL (0.2-1.0) Direct Bilirubin 0.1 mg/dL (0.0-0.2) Aspartate Amino Transf (AST/SGOT) 20 U/L (15-37) Alanine Aminotransferase (ALT/SGPT) 22 U/L (14-59) Alkaline Phosphatase 65 U/L (46-116) Creatine Kinase 82 U/L (26-192) Creatine Kinase MB (Mass) 0.9 ng/mL (0.0-3.6) Creatine Kinase MB Relative Index 1.1 % (0-4) Troponin I Quantitative < 0.017 ng/mL (0.000-0.055) < 0.017 ng/mL (0.000-0.055) < 0.017 ng/mL (0.000-0.055) QU-Nfn-W-Type Natriuretic Peptide 291 pg/mL (0-449) Total Protein 8.1 g/dL (6.4-8.2) Albumin 3.9 g/dL (3.4-5.0) Lipase 72 U/L (73-393) Procalcitonin < 0.10 ng/mL (0.00-0.10) Prothrombin Time 14.5 SEC (11.7-14.0) Prothromb Time International Ratio 1.2 (0.8-1.1) Urine Collection Type Unknown Urine Color Yellow Urine Clarity Clear Urine pH 6.0 Urine Specific [place] <=1.005 Urine Protein Negative mg/dL (NEG-TRACE) Urine Glucose (UA) Negative mg/dL (NEG) Urine Ketones (Stick) Negative mg/dL (NEG) Urine Blood Negative (NEG) Urine Nitrite Negative (NEG) Urine Bilirubin Negative (NEG) Urine Urobilinogen Dipstick 0.2 mg/dL (0.2 mg/dL) Urine Leukocyte Esterase Negative (NEG) Urine RBC 0 /HPF (0-2) Urine WBC 0 /HPF (0-4) Urine Squamous Epithelial Cells Few /LPF Urine Bacteria 0 /HPF (0-FEW) Test 01/14/17 04:33 White Blood Count 6.5 x10^3/uL (4.0-11.0) Red Blood Count 3.30 x10^6/uL (3.50-5.40) Hemoglobin 10.2 g/dL (12.0-15.5) Hematocrit 29.6 % (36.0-47.0) Mean Corpuscular Volume 90 fL (79-100) Mean Corpuscular Hemoglobin 31 pg (25-35) Mean Corpuscular Hemoglobin Concent 34 g/dL (31-37) Red Cell Distribution Width 14.2 % (11.5-14.5) Platelet Count 140 x10^3/uL (140-400) Neutrophils (%) (Auto) 87 % (31-73) Lymphocytes (%) (Auto) 12 % (24-48) Monocytes (%) (Auto) 1 % (0-9) Eosinophils (%) (Auto) 0 % (0-3) Basophils (%) (Auto) 0 % (0-3) Neutrophils # (Auto) 5.7 x10^3uL (1.8-7.7) Lymphocytes # (Auto) 0.8 x10^3/uL (1.0-4.8) Monocytes # (Auto) 0.1 x10^3/uL (0.0-1.1) Eosinophils # (Auto) 0.0 x10^3/uL (0.0-0.7) Basophils # (Auto) 0.0 x10^3/uL (0.0-0.2) Segmented Neutrophils % 95 % (35-66) Band Neutrophils % 1 % (0-9) Lymphocytes % 4 % (24-48) Platelet Estimate Adequate (ADEQUATE) Sodium Level 138 mmol/L (136-145) Potassium Level 4.0 mmol/L (3.5-5.1) Chloride Level 100 mmol/L (98-107) Carbon Dioxide Level 34 mmol/L (21-32) Anion Gap 4 (6-14) Blood Urea Nitrogen 9 mg/dL (7-20) Creatinine 0.8 mg/dL (0.6-1.0) Estimated GFR (Cockcroft-Gault) 84.2 Glucose Level 153 mg/dL (70-99) Calcium Level 9.0 mg/dL (8.5-10.1) Laboratory Tests Test 01/13/17 10:05 01/13/17 16:00 01/13/17 22:05 01/14/17 04:33 Prothrombin Time 14.5 SEC (11.7-14.0) Prothromb Time International Ratio 1.2 (0.8-1.1) Urine Collection Type Unknown Urine Color Yellow Urine Clarity Clear Urine pH 6.0 Urine Specific [place] <=1.005 Urine Protein Negative mg/dL (NEG-TRACE) Urine Glucose (UA) Negative mg/dL (NEG) Urine Ketones (Stick) Negative mg/dL (NEG) Urine Blood Negative (NEG) Urine Nitrite Negative (NEG) Urine Bilirubin Negative (NEG) Urine Urobilinogen Dipstick 0.2 mg/dL (0.2 mg/dL) Urine Leukocyte Esterase Negative (NEG) Urine RBC 0 /HPF (0-2) Urine WBC 0 /HPF (0-4) Urine Squamous Epithelial Cells Few /LPF Urine Bacteria 0 /HPF (0-FEW) Troponin I Quantitative < 0.017 ng/mL (0.000-0.055) < 0.017 ng/mL (0.000-0.055) White Blood Count 6.5 x10^3/uL (4.0-11.0) Red Blood Count 3.30 x10^6/uL (3.50-5.40) Hemoglobin 10.2 g/dL (12.0-15.5) Hematocrit 29.6 % (36.0-47.0) Mean Corpuscular Volume 90 fL (79-100) Mean Corpuscular Hemoglobin 31 pg (25-35) Mean Corpuscular Hemoglobin Concent 34 g/dL (31-37) Red Cell Distribution Width 14.2 % (11.5-14.5) Platelet Count 140 x10^3/uL (140-400) Neutrophils (%) (Auto) 87 % (31-73) Lymphocytes (%) (Auto) 12 % (24-48) Monocytes (%) (Auto) 1 % (0-9) Eosinophils (%) (Auto) 0 % (0-3) Basophils (%) (Auto) 0 % (0-3) Neutrophils # (Auto) 5.7 x10^3uL (1.8-7.7) Lymphocytes # (Auto) 0.8 x10^3/uL (1.0-4.8) Monocytes # (Auto) 0.1 x10^3/uL (0.0-1.1) Eosinophils # (Auto) 0.0 x10^3/uL (0.0-0.7) Basophils # (Auto) 0.0 x10^3/uL (0.0-0.2) Segmented Neutrophils % 95 % (35-66) Band Neutrophils % 1 % (0-9) Lymphocytes % 4 % (24-48) Platelet Estimate Adequate (ADEQUATE) Sodium Level 138 mmol/L (136-145) Potassium Level 4.0 mmol/L (3.5-5.1) Chloride Level 100 mmol/L (98-107) Carbon Dioxide Level 34 mmol/L (21-32) Anion Gap 4 (6-14) Blood Urea Nitrogen 9 mg/dL (7-20) Creatinine 0.8 mg/dL (0.6-1.0) Estimated GFR (Cockcroft-Gault) 84.2 Glucose Level 153 mg/dL (70-99) Calcium Level 9.0 mg/dL (8.5-10.1) Medications Active Scripts Medications Dose Route/Sig Max Daily Dose Days Date Category Nexium Capsule (Esomeprazole Magnesium) 40 Mg Capsule.dr 1 Cap PO DAILY 01/13/17 Rx Symbicort 80-4.5 Mcg Inhaler (Budesonide/Formoterol Fumarate) 10.2 Gm Hfa.aer.ad 2 Puff IH BID 01/13/17 Rx Benzonatate 200 Mg Capsule 1 Cap PO PRN TID 01/13/17 Reported Calcium (Calcium Carbonate) 500 Mg Tablet 500 Mg PO 01/13/17 Reported Multivitamins (Multivitamin) 1 Each Tablet 1 Tab PO DAILY 01/13/17 Reported Meclizine Hcl 25 Mg Tablet 1 Tab PO TID PRN 04/15/16 Rx Losartan Potassium 50 Mg Tablet 50 Mg PO DAILY 04/14/16 Reported Ventolin Hfa Inhaler (Albuterol Sulfate) 18 Gm Hfa.aer.ad 2-4 Puff INH PRN Q4HRS PRN 01/28/16 Rx Proair Hfa Inhaler (Albuterol Sulfate) 8.5 Gm Hfa.aer.ad 1 Puff INH DAILY08 02/25/14 Reported Spiriva (Tiotropium [place]) 18 Mcg Cap.w.dev 2 Inh IH DAILY08 02/25/14 Reported Valium (Diazepam) 5 Mg Tablet 5 Mg PO DAILY08 02/25/14 Reported Zoloft (Sertraline Hcl) 100 Mg Tablet 100 Mg PO DAILY08 02/25/14 Reported Synthroid (Levothyroxine Sodium) 50 Mcg Tablet 50 Mcg PO DAILY06 02/25/[address] CHEST 1. Emphysema with pleural/parenchymal scarring. 2. Minimal peripheral infiltrate in the anterior aspect of the right middle lobe has progressed slightly since 03/13/2015. This may represent progressive scarring or active inflammation. A neoplastic etiology is less likely. Impression . 1. Acute exacerbation of chronic obstructive pulmonary disease triggered by acute bronchitis. 2. Acute bronchitis, probably viral. No definite pneumonia seen on the chest x-ray. 3. History of chronic hypoxic respiratory failure, currently on 2 liters, which is her baseline. Plan . 1. Continue with present bronchodilators with DuoNeb. 2. Continue with steroid nebulizer. 3. IV steroids/ taper 4. CT chest reviewed 01/13. mild RML parenchymal lung infiltrates. scarring vs mild acute inflammation 5. Cough suppressant with Tessalon Pearle. 6. Continue oxygen at 2 liters. 7. empiric antibiotic. 8. Possible discharge in 24 hours. DAVID RICHTER MD Jan 14, 2017 10:00
[2017-01-14] MEDS: [UNRECOGNIZED DRUG - OTHER] INH SCH (10:10)
[2017-01-14] MEDS: TIOTROPIUM INH SCH (10:10)
[2017-01-14 11:00] VITALS: BP 138/49
[2017-01-14 14:42] VITALS: BP 140/57
[2017-01-14 19:51] VITALS: BP 136/53
[2017-01-14 23:00] VITALS: BP 136/63
[2017-01-15] MEDS: LEVOTHYROXINE 50 MCG TABLET PO SCH (05:12)
[2017-01-15] MEDS: methylPREDNISolone SOD SUCC PF 125 MG/2 ML VIAL. IV SCH (05:12)
[2017-01-15 07:30] VITALS: BP 138/52
[2017-01-15] MEDS: ALBUTEROL SULFATE 2.5 MG/3 ML NEBU. NEB SCH ×2 (07:51→11:54)
[2017-01-15] MEDS: BUDESONIDE 0.5 MG/2 ML NEBU. NEB SCH (07:51)
[2017-01-15] MEDS: LOSARTAN POTASSIUM 50 MG TABLET. PO SCH (08:56)
[2017-01-15] MEDS: PANTOPRAZOLE 40 MG TABLET.DR. PO SCH (08:56)
[2017-01-15] MEDS: SERTRALINE 50 MG TABLET. PO SCH (08:56)
[2017-01-15] MEDS: MULTIVITAMIN with MINERAL TABLET. PO SCH (08:56)
[2017-01-15] MEDS: DOXYCYCLINE HYCLATE 100 MG TABLET PO SCH (08:56)
[2017-01-15] MEDS: CALCIUM CARBONATE 500 MG TABLET PO SCH (08:56)
[2017-01-15] MEDS: diazePAM 5 MG TABLET PO SCH (08:57)
[2017-01-15] MEDS: [UNRECOGNIZED DRUG - OTHER] INH SCH (08:57)
[2017-01-15] MEDS: TIOTROPIUM INH SCH (08:57)
--- NOTE | 2017-01-15 09:01 | PDOC ---
PROGRESS NOTES Subjective Subjective Patient reports her breathing is much better, feels ready to go home today. Objective Objective Vital Signs Date Time Temp Pulse Resp B/P (MAP) Pulse Ox O2 Delivery O2 Flow Rate FiO2 01/15/17 07:52 100 Nasal Cannula 1.5 01/15/17 07:30 99.0 79 18 138/52 (80) 99.0 Intake and Output 01/15/17 07:00 Intake Total 860 ml Output Total 550 ml Balance 310 ml Intake Oral 860 ml Output Urine Total 550 ml # Voids 2 # Bowel Movements 1 Physical Exam Abdomen: Normal bowel sounds, Soft, No tenderness Heart: Regular rate Extremities: No edema General: Alert, Oriented X3, No acute distress Lungs: Other (BS moderately decreased throughout, no wheezes heard, no cough during exam) Assessment Assessment Problems Medical Problems: (1) COPD with acute exacerbation Status: Acute Plan Plan of Care 1. Acute on chronic respiratory failure with COPD and acute bronchitis - patient 's symptoms are improved, no hypoxia on her usual O2 per NC. Home today on po Prednisone taper and Doxycycline. 2. HTN - controlled, continue home meds. 3. glucose intolerance - diet-controlled. 4. chronic anxiety - controlled, continue home meds. Comment Review of Relevant I have reviewed the following items elliott (where applicable) has been applied. Labs Laboratory Tests Test 01/13/17 09:06 01/13/17 10:05 01/13/17 16:00 01/13/17 22:05 White Blood Count 6.0 x10^3/uL (4.0-11.0) Red Blood Count 3.62 x10^6/uL (3.50-5.40) Hemoglobin 11.0 g/dL (12.0-15.5) Hematocrit 33.1 % (36.0-47.0) Mean Corpuscular Volume 91 fL (79-100) Mean Corpuscular Hemoglobin 31 pg (25-35) Mean Corpuscular Hemoglobin Concent 33 g/dL (31-37) Red Cell Distribution Width 14.2 % (11.5-14.5) Platelet Count 151 x10^3/uL (140-400) Neutrophils (%) (Auto) 63 % (31-73) Lymphocytes (%) (Auto) 31 % (24-48) Monocytes (%) (Auto) 3 % (0-9) Eosinophils (%) (Auto) 2 % (0-3) Basophils (%) (Auto) 1 % (0-3) Neutrophils # (Auto) 3.8 x10^3uL (1.8-7.7) Lymphocytes # (Auto) 1.9 x10^3/uL (1.0-4.8) Monocytes # (Auto) 0.2 x10^3/uL (0.0-1.1) Eosinophils # (Auto) 0.1 x10^3/uL (0.0-0.7) Basophils # (Auto) 0.1 x10^3/uL (0.0-0.2) Sodium Level 139 mmol/L (136-145) Potassium Level 4.1 mmol/L (3.5-5.1) Chloride Level 100 mmol/L (98-107) Carbon Dioxide Level 35 mmol/L (21-32) Anion Gap 4 (6-14) Blood Urea Nitrogen 8 mg/dL (7-20) Creatinine 0.9 mg/dL (0.6-1.0) Estimated GFR (Cockcroft-Gault) 73.5 Glucose Level 110 mg/dL (70-99) Lactic Acid Level 0.7 mmol/L (0.4-2.0) Calcium Level 9.2 mg/dL (8.5-10.1) Magnesium Level 1.9 mg/dL (1.8-2.4) Total Bilirubin 0.4 mg/dL (0.2-1.0) Direct Bilirubin 0.1 mg/dL (0.0-0.2) Aspartate Amino Transf (AST/SGOT) 20 U/L (15-37) Alanine Aminotransferase (ALT/SGPT) 22 U/L (14-59) Alkaline Phosphatase 65 U/L (46-116) Creatine Kinase 82 U/L (26-192) Creatine Kinase MB (Mass) 0.9 ng/mL (0.0-3.6) Creatine Kinase MB Relative Index 1.1 % (0-4) Troponin I Quantitative < 0.017 ng/mL (0.000-0.055) < 0.017 ng/mL (0.000-0.055) < 0.017 ng/mL (0.000-0.055) XS-Icz-N-Type Natriuretic Peptide 291 pg/mL (0-449) Total Protein 8.1 g/dL (6.4-8.2) Albumin 3.9 g/dL (3.4-5.0) Lipase 72 U/L (73-393) Procalcitonin < 0.10 ng/mL (0.00-0.10) Prothrombin Time 14.5 SEC (11.7-14.0) Prothromb Time International Ratio 1.2 (0.8-1.1) Urine Collection Type Unknown Urine Color Yellow Urine Clarity Clear Urine pH 6.0 Urine Specific [place] <=1.005 Urine Protein Negative mg/dL (NEG-TRACE) Urine Glucose (UA) Negative mg/dL (NEG) Urine Ketones (Stick) Negative mg/dL (NEG) Urine Blood Negative (NEG) Urine Nitrite Negative (NEG) Urine Bilirubin Negative (NEG) Urine Urobilinogen Dipstick 0.2 mg/dL (0.2 mg/dL) Urine Leukocyte Esterase Negative (NEG) Urine RBC 0 /HPF (0-2) Urine WBC 0 /HPF (0-4) Urine Squamous Epithelial Cells Few /LPF Urine Bacteria 0 /HPF (0-FEW) Test 01/14/17 04:33 White Blood Count 6.5 x10^3/uL (4.0-11.0) Red Blood Count 3.30 x10^6/uL (3.50-5.40) Hemoglobin 10.2 g/dL (12.0-15.5) Hematocrit 29.6 % (36.0-47.0) Mean Corpuscular Volume 90 fL (79-100) Mean Corpuscular Hemoglobin 31 pg (25-35) Mean Corpuscular Hemoglobin Concent 34 g/dL (31-37) Red Cell Distribution Width 14.2 % (11.5-14.5) Platelet Count 140 x10^3/uL (140-400) Neutrophils (%) (Auto) 87 % (31-73) Lymphocytes (%) (Auto) 12 % (24-48) Monocytes (%) (Auto) 1 % (0-9) Eosinophils (%) (Auto) 0 % (0-3) Basophils (%) (Auto) 0 % (0-3) Neutrophils # (Auto) 5.7 x10^3uL (1.8-7.7) Lymphocytes # (Auto) 0.8 x10^3/uL (1.0-4.8) Monocytes # (Auto) 0.1 x10^3/uL (0.0-1.1) Eosinophils # (Auto) 0.0 x10^3/uL (0.0-0.7) Basophils # (Auto) 0.0 x10^3/uL (0.0-0.2) Segmented Neutrophils % 95 % (35-66) Band Neutrophils % 1 % (0-9) Lymphocytes % 4 % (24-48) Platelet Estimate Adequate (ADEQUATE) Sodium Level 138 mmol/L (136-145) Potassium Level 4.0 mmol/L (3.5-5.1) Chloride Level 100 mmol/L (98-107) Carbon Dioxide Level 34 mmol/L (21-32) Anion Gap 4 (6-14) Blood Urea Nitrogen 9 mg/dL (7-20) Creatinine 0.8 mg/dL (0.6-1.0) Estimated GFR (Cockcroft-Gault) 84.2 Glucose Level 153 mg/dL (70-99) Calcium Level 9.0 mg/dL (8.5-10.1) Microbiology 01/13/17 Blood Culture - Preliminary, Resulted NO GROWTH AFTER 1 DAY Medications Current Medications Albuterol/ Ipratropium (Duoneb) 3 ml 1X ONCE NEB Last administered on 09:00; Start 01/13/17 at 09:00; Stop 01/13/17 at 09:01; Status DC Methylprednisolone Sodium Succinate (SOLU-Medrol 125MG VIAL) 125 mg 1X ONCE IV Last administered on 01/13/17 09:43; Start 01/13/17 at 09:15; Stop 01/13/17 at 09:16; Status DC Azithromycin 250 ml @ 250 mls/hr 1X ONCE IV Last administered on 01/13/17 10 :07; Start 01/13/17 at 09:15; Stop 01/13/17 at 10:14; Status DC Acetaminophen (Tylenol) 1,000 mg 1X ONCE PO Last administered on 01/13/17 09: 42; Start 01/13/17 at 09:30; Stop 01/13/17 at 09:31; Status DC Diazepam (Valium) 5 mg 1X ONCE PO Last administered on 01/13/17 12:11; Start 01/13/17 at 12:15; Stop 01/13/17 at 12:16; Status DC Calcium Carbonate/ Glycine (Oscal) 500 mg DAILY PO Last administered on 08:15; Start 01/14/17 at 09:00 Diazepam (Valium) 5 mg DAILY08 PO Last administered on 01/14/17 08:16; Start 01/14/17 at 08:00 Levothyroxine Sodium (Synthroid) 50 mcg DAILY06 PO Last administered on 05:12; Start 01/14/17 at 06:00 Losartan Potassium (Cozaar) 50 mg DAILY PO Last administered on 01/14/17 08:15 ; Start 01/14/17 at 09:00 Non-Formulary Medication 1 puff DAILY08 INH ; Start 01/14/17 at 08:00; Status UNV Benzonatate (Tessalon Perle) 200 mg PRN TID PRN PO COUGH Last administered on 00:51; Start 01/13/17 at 21:00 Non-Formulary Medication 2 puff BID IH ; Start 01/13/17 at 21:00; Status UNV Pantoprazole Sodium (Protonix) 40 mg DAILYAC PO Last administered on 01/14/17 08:16; Start 01/14/17 at 07:30 Meclizine HCl (Antivert) 25 mg PRN TID PRN PO DIZZINESS; Start 01/13/17 at 14: 30 Multivitamins (Thera M Plus) 1 tab DAILY PO Last administered on 01/14/17 08: 15; Start 01/14/17 at 09:00 Non-Formulary Medication 2 inh DAILY08 IH ; Start 01/14/17 at 08:00; Status UNV Sertraline HCl (Zoloft) 100 mg DAILY PO Last administered on 01/14/17 08:15; Start 01/14/17 at 09:00 Methylprednisolone Sodium Succinate (SOLU-Medrol 125MG VIAL) 60 mg Q8HRS IV Last administered on 01/15/17 05:12; Start 01/13/17 at 22:00 Albuterol/ Ipratropium (Duoneb) 3 ml RTQID NEB Last administered on 01/13/17 15:53; Start 01/13/17 at 16:00; Stop 01/13/17 at 17:01; Status DC Budesonide (Pulmicort) 0.5 mg RTBID NEB Last administered on 01/15/17 07:51; Start 01/13/17 at 20:00 Doxycycline Hyclate (Vibra-Tab) 100 mg BID PO Last administered on 01/14/17 20 :56; Start 01/13/17 at 15:30 Albuterol Sulfate (Ventolin Neb Soln) 2.5 mg RTQID NEB Last administered on 07:51; Start 01/13/17 at 20:00 Non-Formulary Medication 1 ea DAILY INH Last administered on 01/14/17 10:10; Start 01/14/17 at 09:00 Active Scripts Active Nexium Capsule (Esomeprazole Magnesium) 40 Mg Capsule.dr 1 Cap PO DAILY Symbicort 80-4.5 Mcg Inhaler (Budesonide/Formoterol Fumarate) 10.2 Gm Hfa.aer.ad 2 Puff IH BID Meclizine Hcl 25 Mg Tablet 1 Tab PO TID PRN Ventolin Hfa Inhaler (Albuterol Sulfate) 18 Gm Hfa.aer.ad 2-4 Puff INH PRN Q4HRS PRN Reported Benzonatate 200 Mg Capsule 1 Cap PO PRN TID Calcium (Calcium Carbonate) 500 Mg Tablet 500 Mg PO Multivitamins (Multivitamin) 1 Each Tablet 1 Tab PO DAILY Losartan Potassium 50 Mg Tablet 50 Mg PO DAILY Proair Hfa Inhaler (Albuterol Sulfate) 8.5 Gm Hfa.aer.ad 1 Puff INH DAILY08 Spiriva (Tiotropium [place]) 18 Mcg Cap.w.dev 2 Inh IH DAILY08 Valium (Diazepam) 5 Mg Tablet 5 Mg PO DAILY08 Zoloft (Sertraline Hcl) 100 Mg Tablet 100 Mg PO DAILY08 Synthroid (Levothyroxine Sodium) 50 Mcg Tablet 50 Mcg PO DAILY06 Vitals/I & O Vital Sign - Last 24 Hours 01/14/17 01/14/17 01/14/17 01/14/17 11:00 11:52 14:42 15:33 Temp 98.5 98.3 98.5 98.3 Pulse 101 103 Resp 20 20 B/P (MAP) 138/49 (78) 140/57 (84) Pulse Ox 99 99 100 100 O2 Delivery Nasal Cannula Nasal Cannula Nasal Cannula Nasal Cannula O2 Flow Rate 2.0 1.5 2.0 1.5 01/14/17 01/14/17 01/14/17 01/15/17 19:51 20:00 23:00 07:30 Temp 98.1 98.2 99.0 98.1 98.2 99.0 Pulse 102 94 79 Resp 18 18 18 B/P (MAP) 136/53 (80) 136/63 (87) 138/52 (80) Pulse Ox 99 98 100 O2 Delivery Nasal Cannula Nasal Cannula Nasal Cannula Nasal Cannula O2 Flow Rate 2.0 2.0 2.0 2.0 01/15/17 07:52 Pulse Ox 100 O2 Delivery Nasal Cannula O2 Flow Rate 1.5 Intake and Output 01/14/17 01/14/17 01/15/17 15:00 23:00 07:00 Intake Total 240 ml 520 ml 100 ml Output Total 100 ml 450 ml Balance 140 ml 520 ml -350 ml COSMO CASTRO MD Jan 15, 2017 09:01
[2017-01-15] MEDS ORDERED: DOXY100T PO (09:04)
[2017-01-15] MEDS ORDERED: PRED20TA PO (09:09)
--- NOTE | 2017-01-15 09:35 | DS ---
DATE OF DISCHARGE: 01/15/2017 CHIEF COMPLAINT: Shortness of breath. HISTORY OF PRESENT ILLNESS: The patient is a 76-year-old female with chronic respiratory failure due to COPD. She presented to the Emergency Room with the above complaint. She reported a several-day history of increasing dyspnea on exertion. She was using her usual oxygen per nasal cannula and doing her breathing treatments as needed, but her symptoms gradually worsened. She felt increasing difficulty in getting her breath even at rest, so she came to the Emergency Room. Initial evaluation there showed her to not be hypoxic on oxygen per nasal cannula. She did have mild tachycardia. Chest x-ray was without acute infiltrate. She was given 1 dose of Solu-Medrol and admitted for further treatment. HOSPITAL COURSE: The patient was admitted and placed on telemetry where she remained in sinus rhythm with some intermittent mild sinus tachycardia. She was seen in consultation by Dr. Tello. She was started on scheduled Solu-Medrol and oral doxycycline for treatment of acute bronchitis and acute exacerbation of her chronic respiratory failure. The patient has done well with these treatments and reports that her shortness of breath is much improved. She continues without hypoxia on oxygen, but reports that it is comfortable for her to move around in her room now without unusual shortness of breath. She will be discharged to home today on oral antibiotic and a prednisone taper. The patient's other chronic medical conditions including hypertension and chronic anxiety were well controlled with her usual medications. FINAL DIAGNOSES: 1. Acute on chronic respiratory failure with chronic obstructive pulmonary disease and acute bronchitis. 2. Hypertension. 3. Glucose intolerance. 4. Chronic anxiety. 5. Hypothyroidism. DISCHARGE MEDICATIONS: Doxycycline 100 mg p.o. b.i.d. x 5 days, prednisone 20 mg tablet 3 tablets daily for 2 days, then 2 tablets daily for 2 days, then 1 tablet daily for 2 days, then discontinue, albuterol p.r.n., Tessalon Perles p.r.n., Symbicort 80/4.5 two puffs b.i.d., calcium 500 mg daily, Valium 5 mg daily, Nexium 40 mg daily, levothyroxine 50 mcg daily, losartan 50 mg daily, sertraline 100 mg daily, Spiriva 1 puff daily. FOLLOWUP: With Dr. Castro as needed. COSMO CASTRO MD DR: ALBERT/harman JOB#: [id number] / [id number]
--- NOTE | 2017-01-15 10:08 | PDOC ---
PULMONARY PROGRESS NOTES Subjective feels better less soa Vitals Vital Signs Date Time Temp Pulse Resp B/P (MAP) Pulse Ox O2 Delivery O2 Flow Rate FiO2 01/15/17 08:56 79 138/52 01/15/17 07:52 100 Nasal Cannula 1.5 01/15/17 07:30 99.0 18 99.0 ROS: No Nausea, No Chest Pain General: Alert, Oriented X4, No acute distress HEENT: Other (nc at perrl) Lungs: Other (decrease bs) Cardiovascular: S1, S2 Abdomen: Soft, Non-tender Neuro Exam: Alert, Oriented Extremities: No Edema Skin: Warm Labs Laboratory Tests Test 01/13/17 16:00 01/13/17 22:05 01/14/17 04:33 Troponin I Quantitative < 0.017 ng/mL (0.000-0.055) < 0.017 ng/mL (0.000-0.055) White Blood Count 6.5 x10^3/uL (4.0-11.0) Red Blood Count 3.30 x10^6/uL (3.50-5.40) Hemoglobin 10.2 g/dL (12.0-15.5) Hematocrit 29.6 % (36.0-47.0) Mean Corpuscular Volume 90 fL (79-100) Mean Corpuscular Hemoglobin 31 pg (25-35) Mean Corpuscular Hemoglobin Concent 34 g/dL (31-37) Red Cell Distribution Width 14.2 % (11.5-14.5) Platelet Count 140 x10^3/uL (140-400) Neutrophils (%) (Auto) 87 % (31-73) Lymphocytes (%) (Auto) 12 % (24-48) Monocytes (%) (Auto) 1 % (0-9) Eosinophils (%) (Auto) 0 % (0-3) Basophils (%) (Auto) 0 % (0-3) Neutrophils # (Auto) 5.7 x10^3uL (1.8-7.7) Lymphocytes # (Auto) 0.8 x10^3/uL (1.0-4.8) Monocytes # (Auto) 0.1 x10^3/uL (0.0-1.1) Eosinophils # (Auto) 0.0 x10^3/uL (0.0-0.7) Basophils # (Auto) 0.0 x10^3/uL (0.0-0.2) Segmented Neutrophils % 95 % (35-66) Band Neutrophils % 1 % (0-9) Lymphocytes % 4 % (24-48) Platelet Estimate Adequate (ADEQUATE) Sodium Level 138 mmol/L (136-145) Potassium Level 4.0 mmol/L (3.5-5.1) Chloride Level 100 mmol/L (98-107) Carbon Dioxide Level 34 mmol/L (21-32) Anion Gap 4 (6-14) Blood Urea Nitrogen 9 mg/dL (7-20) Creatinine 0.8 mg/dL (0.6-1.0) Estimated GFR (Cockcroft-Gault) 84.2 Glucose Level 153 mg/dL (70-99) Calcium Level 9.0 mg/dL (8.5-10.1) Medications Active Scripts Medications Dose Route/Sig Max Daily Dose Days Date Category Nexium Capsule (Esomeprazole Magnesium) 40 Mg Capsule.dr 1 Cap PO DAILY 01/13/17 Rx Symbicort 80-4.5 Mcg Inhaler (Budesonide/Formoterol Fumarate) 10.2 Gm Hfa.aer.ad 2 Puff IH BID 01/13/17 Rx Benzonatate 200 Mg Capsule 1 Cap PO PRN TID 01/13/17 Reported Calcium (Calcium Carbonate) 500 Mg Tablet 500 Mg PO 01/13/17 Reported Multivitamins (Multivitamin) 1 Each Tablet 1 Tab PO DAILY 01/13/17 Reported Meclizine Hcl 25 Mg Tablet 1 Tab PO TID PRN 04/15/16 Rx Losartan Potassium 50 Mg Tablet 50 Mg PO DAILY 04/14/16 Reported Ventolin Hfa Inhaler (Albuterol Sulfate) 18 Gm Hfa.aer.ad 2-4 Puff INH PRN Q4HRS PRN 01/28/16 Rx Proair Hfa Inhaler (Albuterol Sulfate) 8.5 Gm Hfa.aer.ad 1 Puff INH DAILY08 02/25/14 Reported Spiriva (Tiotropium Biddle) 18 Mcg Cap.w.dev 2 Inh IH DAILY08 02/25/14 Reported Valium (Diazepam) 5 Mg Tablet 5 Mg PO DAILY08 02/25/14 Reported Zoloft (Sertraline Hcl) 100 Mg Tablet 100 Mg PO DAILY08 02/25/14 Reported Synthroid (Levothyroxine Sodium) 50 Mcg Tablet 50 Mcg PO DAILY06 02/25/[address] CHEST 1. Emphysema with pleural/parenchymal scarring. 2. Minimal peripheral infiltrate in the anterior aspect of the right middle lobe has progressed slightly since 03/13/2015. This may represent progressive scarring or active inflammation. A neoplastic etiology is less likely. Impression . 1. Acute exacerbation of chronic obstructive pulmonary disease triggered by acute bronchitis. 2. Acute bronchitis, probably viral. No definite pneumonia seen on the chest x-ray. 3. History of chronic hypoxic respiratory failure, currently on 2 liters, which is her baseline. Plan . 1. Continue with present bronchodilators with DuoNeb. 2. Continue with steroid nebulizer. 3. change solumedrol to prednisone 40 mg qd w taper by 10 mg q 3d 4. CT chest reviewed 01/13. mild RML parenchymal lung infiltrates. scarring vs mild acute inflammation 5. Cough suppressant with Tessalon Pearle. 6. Continue oxygen at 2 liters. 7. empiric antibiotic. 8. ok to dc home discussed w pt AMPARO Dorantes MD Jan 15, 2017 10:08
[2017-01-15 10:40] VITALS: BP 141/65
[2017-01-15] MEDS ORDERED: methylPREDNISolone SOD SUCC PF 125 MG/2 ML VIAL. IV ONE (14:00)
[2017-01-16] MEDS ORDERED: predniSONE 20 MG TABLET PO SCH (09:00)
== END 2017-01-15 14:50 | disposition home or self-care (01) | DRG 189 ==
LOC: ER 08:33 → ED HOLD 10:00 → 6 SOUTH 12:55
PROVIDERS: ADMIT Family Medicine; ATTEND Family Medicine
DX: J96.20 Acute and chronic respiratory failure, unspecified whether with hypoxia or hypercapnia (principal); Z99.81 Dependence on supplemental oxygen; J44.0 Chronic obstructive pulmonary disease with (acute) lower respiratory infection; J44.1 Chronic obstructive pulmonary disease with (acute) exacerbation; E03.9 Hypothyroidism, unspecified; E74.39 Other disorders of intestinal carbohydrate absorption; F41.9 Anxiety disorder, unspecified; I10 Essential (primary) hypertension; J20.9 Acute bronchitis, unspecified; K21.9 Gastro-esophageal reflux disease without esophagitis; Z85.41 Personal history of malignant neoplasm of cervix uteri; Z87.891 Personal history of nicotine dependence; Z90.710 Acquired absence of both cervix and uterus; E89.0 Postprocedural hypothyroidism; Z88.5 Allergy status to narcotic agent; Z88.8 Allergy status to other drugs, medicaments and biological substances
CPT/HCPCS: 36415; 51701; 71010; 71250; 80048; 80076; 81001; 82553; 83605; 83690; 83735; 83880; 84145; 84484; 85007; 85025; 85610; 87040; 93005; 94250; 94640; 96365; 96375; J0456; J2930; J7613; J7620; J7626; 99285-25

== ENCOUNTER → 2017-02-12 | Outpatient (CLI) | payer MEDICARE, OTHER ==
[2017-01-15 10:40] VITALS: BP 141/65
[~2017-02-12] MED LIST changes: +BENZ200C47 PO; +BUDE10.22 IH; +CALC500T30 PO; +DOXY100T PO; +MULT1TAB52 PO
--- NOTE | 2017-02-12 09:41 | RAD ---
DATE: 02/12/2017 EXAM: DIGITAL SCREEN BILAT W/CAD HISTORY: Routine screening COMPARISON: 01/12/2016 This study was interpreted with the benefit of Computerized Aided Detection (CAD). The breast parenchyma shows scattered fibroglandular densities. Breast parenchyma level B. FINDINGS: No new or enlarging breast densities are seen. Benign type calcifications are present. No suspicious microcalcifications have developed. IMPRESSION: Stable mammograms without evidence of malignancy. BI-RADS CATEGORY: 2 BENIGN FINDING(S) RECOMMENDED FOLLOW-UP: 12M 12 MONTH FOLLOW-UP PQRS compliance statement: Patient information was entered into a reminder system with a target due date for the next mammogram. Mammography is a sensitive method for finding small breast cancers, but it does not detect them all and is not a substitute for careful clinical examination. A negative mammogram does not negate a clinically suspicious finding and should not result in delay in biopsying a clinically suspicious abnormality. "Our facility is accredited by the [employer] Mammography Program."
== END | disposition home or self-care (01) ==
LOC: MAMMO 08:35
PROVIDERS: ATTEND Family Medicine
DX: Z12.31 Encounter for screening mammogram for malignant neoplasm of breast (principal)
CPT/HCPCS: G0202; 77067

== ENCOUNTER → 2017-09-01 | Outpatient (CLI) | payer MEDICARE, OTHER | END | disposition home or self-care (01) | LOC: RAD 13:47 | DX: J44.9 Chronic obstructive pulmonary disease, unspecified (principal); I10 Essential (primary) hypertension; E78.5 Hyperlipidemia, unspecified | CPT/HCPCS: 71046 ==

== ENCOUNTER 2018-01-04 09:33 | Emergency (ER) | payer MEDICARE, OTHER ==
[~2018-01-04] VITALS: Ht 147.3 cm; Wt 44.0 kg
--- NOTE | 2018-01-04 09:58 | PHYS DOC ---
Past Medical History Past Medical History: COPD, Hypertension, Other Additional Past Medical Histor: borderline diabetes Past Surgical History: Cholecystectomy, Hysterectomy Additional Past Surgical Histo: thyroidectomy Smoking: Quit Greater Than 1 Year Alcohol Use: None Drug Use: None Adult General Chief Complaint Chief Complaint: HEADACHE HPI HPI Patient is a 77-year-old female presents to the emergency department for evaluation. She states for the past few days, but worsening last night, she began having sharp lancinating pain on the right side of her face, into her right ear, radiating up to her jain and down her neck. She states the pain will come and go, sometimes lasting up about a minute or 2, and she had multiple episodes several minutes apart. She is not having any symptoms between episodes, and denies any pain at this time. She denies any global headache. She has not had any chest pain or shortness of breath different than her baseline COPD, for which she wears oxygen chronically. She denies any numbness, weakness , vision changes, hearing changes, or tinnitus. There are no alleviating, or exacerbating factors to her symptoms. Review of Systems Review of Systems Constitutional: Denies fever or chills [] Eyes: Denies change in visual acuity, redness, or eye pain , denies any current otalgia (between episodes), or any hearing changes or tinnitus. HENT: Denies nasal congestion or sore throat [] Respiratory: Denies cough or shortness of breath [] Cardiovascular: The patient denies any shortness of breath, chest pain, palpitations, or orthopnea [] GI: Denies abdominal pain, nausea, vomiting, bloody stools or diarrhea [] : Denies dysuria or hematuria [] Musculoskeletal: Denies back pain or joint pain [] Integument: Denies rash or skin lesions [] Neurologic: Denies headache, focal weakness or sensory changes [] Endocrine: Denies polyuria or polydipsia [] All other systems were reviewed and found to be within normal limits, except as documented in this note. Allergies Allergies Allergies Coded Allergies Type Severity Reaction Last Updated Verified No Known Medication Allergies Allergy Unknown 04/14/16 Yes codeine Adverse Reaction Intermediate vomiting 04/14/16 Yes Physical Exam Physical Exam PHYSICAL EXAM: CONSTITUTIONAL: Well developed, well nourished HEAD: normocephalic, atraumatic. The temporal arteries are palpable and nontender bilaterally. EENT: PERRL, EOMI. Conjunctivae normal color, sclerae non-icteric; moist mucous membranes. NECK: Supple, non-tender; no meningismus. There are no carotid bruits. LUNGS: Lungs CTA, breathing even and unlabored. Normal air movement. HEART: Regular rate and rhythm, no murmur CHEST: No deformity; non-tender ABDOMEN: The abdomen is soft, and non-tender, no masses or bruits. EXTREM: Normal ROM; no deformity, no calf tenderness. Normal pulses palpable in all extremities. There is no pedal edema. SKIN: No rash; no diaphoresis NEURO: Alert; normal speech and cognition; CN's grossly intact; strength grossly intact without focal deficit. BACK: No CVA TTP. Current Patient Data Vital Signs Vital Signs Date Time Temp Pulse Resp B/P (MAP) Pulse Ox O2 Delivery O2 Flow Rate FiO2 01/04/18 09:46 98.5 92 16 173/75 (107) 98 Room Air 98.5 Lab Values Laboratory Tests Test 01/04/18 10:08 White Blood Count 4.5 x10^3/uL (4.0-11.0) Red Blood Count 3.77 x10^6/uL (3.50-5.40) Hemoglobin 11.5 g/dL (12.0-15.5) L Hematocrit 34.1 % (36.0-47.0) L Mean Corpuscular Volume 90 fL (79-100) Mean Corpuscular Hemoglobin 31 pg (25-35) Mean Corpuscular Hemoglobin Concent 34 g/dL (31-37) Red Cell Distribution Width 14.3 % (11.5-14.5) Platelet Count 150 x10^3/uL (140-400) Neutrophils (%) (Auto) 68 % (31-73) Lymphocytes (%) (Auto) 27 % (24-48) Monocytes (%) (Auto) 4 % (0-9) Eosinophils (%) (Auto) 1 % (0-3) Basophils (%) (Auto) 1 % (0-3) Neutrophils # (Auto) 3.1 x10^3uL (1.8-7.7) Lymphocytes # (Auto) 1.2 x10^3/uL (1.0-4.8) Monocytes # (Auto) 0.2 x10^3/uL (0.0-1.1) Eosinophils # (Auto) 0.0 x10^3/uL (0.0-0.7) Basophils # (Auto) 0.0 x10^3/uL (0.0-0.2) Erythrocyte Sedimentation Rate 30 (0-25) H Sodium Level 134 mmol/L (136-145) L Potassium Level 4.1 mmol/L (3.5-5.1) Chloride Level 99 mmol/L (98-107) Carbon Dioxide Level 29 mmol/L (21-32) Anion Gap 6 (6-14) Blood Urea Nitrogen 11 mg/dL (7-20) Creatinine 0.8 mg/dL (0.6-1.0) Estimated GFR (Cockcroft-Gault) 83.9 Glucose Level 106 mg/dL (70-99) H Calcium Level 8.8 mg/dL (8.5-10.1) Troponin I Quantitative < 0.017 ng/mL (0.000-0.055) C-Reactive Protein, Quantitative 4.1 mg/L (0-3.3) H Laboratory Tests 01/04/18 10:08 Laboratory Tests 01/04/18 10:08 EKG EKG [Normal sinus rhythm at a rate of 99 beats for minute, normal axis, normal intervals, left atrial enlargement, there are no acute ischemic ST/T changes.] Radiology/Procedures Radiology/Procedures [PROCEDURE: CT HEAD WO CONTRAST CT of the head without contrast, 01/04/2018: HISTORY: Right-sided headache, ear pain There is mild cerebral and cerebellar atrophy. The ventricles are within normal limits in size. There is no shift of the midline structures. There is no evidence of acute intracranial hemorrhage or mass effect. IMPRESSION: No acute intracranial abnormality is detected. ] Course & Med Decision Making Course & Med Decision Making Pertinent Labs and Imaging studies reviewed. (See chart for details) []11:50 AM: The patient's condition remained stable. Her symptoms are suggestive of trigeminal neuralgia. I discussed case with Dr. Amaral neurology. He recommended starting gabapentin 100 mg 3 times a day, having an outpatient MRI of the brain with attention to the trigeminal nerve, having the patient follow up with a dentist for dental evaluation and he will see the patient in the office for further evaluation. I discussed test results and plan with the patient, and pending her ESR coming back normal, she will be discharged. Clinical suspicion for temporal arteritis is low at this point. Dragon Disclaimer Dragon Disclaimer This electronic medical record was generated, in whole or in part, using a voice recognition dictation system. Departure Departure Impression: Primary Impression: Trigeminal neuralgia syndrome Disposition: 01 HOME, SELF-CARE Condition: STABLE Referrals: COSMO CASTRO MD (PCP) REGULO SIEGEL MD Patient Instructions: Trigeminal Neuralgia Additional Instructions: Have your primary care provider arrange an outpatient MRI, of the brain, with attention to the trigeminal nerve. Subsequent to this, follow-up with Dr. Amaral, neurology, as instructed. (Take the medication as prescribed, 3 times daily. This medication may cause sedation. Use caution while taking. Additionally, follow-up with your dentist for a full dental evaluation to ensure that these cause of her pain is not dental in origin. Scripts Gabapentin (GABAPENTIN) 100 Mg Capsule 100 MG PO TID for 30 Days, #90 CAP Prov: BHANU ARRIAGA MD 01/04/18 BHANU ARRIAGA MD Jan 04, 2018 09:58
[2018-01-04 10:34] LABS: BASO % 1 % (0-3); EOS % 1 % (0-3); HEMATOCRIT 34.1 % (36.0-47.0); HEMOGLOBIN 11.5 g/dL (12.0-15.5); LYMPH # 1.2 x10^3/uL (1.0-4.8); LYMPH % 27 % (24-48); MEAN CORPUSCULAR HEMOGLOBIN 31 pg (25-35); MEAN CORPUSCULAR HGB CONC 34 g/dL (31-37); MEAN CORPUSCULAR VOLUME 90 fL (79-100); MONO # 0.2 x10^3/uL (0.0-1.1); MONO % 4 % (0-9); NEUT # 3.1 x10^3uL (1.8-7.7); NEUT % 68 % (31-73); PLATELET COUNT 150 x10^3/uL (140-400); RED BLOOD COUNT 3.77 x10^6/uL (3.50-5.40); RED CELL DISTRIBUTION WIDTH 14.3 % (11.5-14.5); WHITE BLOOD COUNT 4.5 x10^3/uL (4.0-11.0)
[2018-01-04 10:35] LABS: CALCIUM 8.8 mg/dL (8.5-10.1); CREATININE 0.8 mg/dL (0.6-1.0); GFR 83.9; POTASSIUM 4.1 mmol/L (3.5-5.1)
[2018-01-04 10:37] LABS: C-REACTIVE PROTEIN 4.1 mg/L (0-3.3)
--- NOTE | 2018-01-04 11:04 | RAD ---
CT of the head without contrast, 01/04/2018: HISTORY: Right-sided headache, ear pain There is mild cerebral and cerebellar atrophy. The ventricles are within normal limits in size. There is no shift of the midline structures. There is no evidence of acute intracranial hemorrhage or mass effect. IMPRESSION: No acute intracranial abnormality is detected. RS Compliance Statement: One or more of the following individualized dose reduction techniques were utilized for this examination: 1. Automated exposure control 2. Adjustment of the mA and/or kV according to patient size 3. Use of iterative reconstruction technique Electronically signed by: Lupillo Gutiérrez MD (01/04/2018 11:00 AM) [facility]
[2018-01-04] MEDS ORDERED: GABA-585 PO (12:04)
[2018-01-04 12:06] VITALS: BP 159/70
--- NOTE | 2018-01-05 06:32 | EKG ---
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
== END 2018-01-04 12:10 | disposition home or self-care (01) ==
LOC: ER 09:33
DX: G50.0 Trigeminal neuralgia (principal); J44.9 Chronic obstructive pulmonary disease, unspecified; I10 Essential (primary) hypertension; Z87.891 Personal history of nicotine dependence; Z88.5 Allergy status to narcotic agent
CPT/HCPCS: 36415; 70450; 80048; 84484; 85025; 85651; 86140; 93005; 99285-25

== ENCOUNTER → 2018-02-16 | Outpatient (CLI) | payer MEDICARE, OTHER ==
[~2018-02-16] MED LIST changes: +GABA-585 PO; -LOSA50TA6 PO; +LOSA50TA7 PO
--- NOTE | 2018-02-16 10:43 | RAD ---
DATE: 02/16/2018 EXAM: MAMMO ARIANE SCREENING BILATERAL HISTORY: Routine screening COMPARISON: 02/12/2017 This study was interpreted with the benefit of Computerized Aided Detection (CAD). Breast Density: SCATTERED The breast parenchyma shows scattered fibroglandular densities. Breast parenchyma level B. FINDINGS: 2-D and 3-D tomosynthesis imaging was performed in CC and MLO projections. No new or enlarging breast densities are seen. Multiple benign type calcifications are again noted. No suspicious microcalcifications have developed. IMPRESSION: Stable mammograms without evidence of malignancy. BI-RADS CATEGORY: 2 BENIGN FINDING(S) RECOMMENDED FOLLOW-UP: 12M 12 MONTH FOLLOW-UP PQRS compliance statement: Patient information was entered into a reminder system with a target due date for the next mammogram. Mammography is a sensitive method for finding small breast cancers, but it does not detect them all and is not a substitute for careful clinical examination. A negative mammogram does not negate a clinically suspicious finding and should not result in delay in biopsying a clinically suspicious abnormality. "Our facility is accredited by the [employer] Mammography Program."
== END | disposition home or self-care (01) ==
LOC: MAMMO 08:51
PROVIDERS: ATTEND Family Medicine
DX: Z12.31 Encounter for screening mammogram for malignant neoplasm of breast (principal); I10 Essential (primary) hypertension; E78.5 Hyperlipidemia, unspecified; E03.9 Hypothyroidism, unspecified; J44.9 Chronic obstructive pulmonary disease, unspecified; K21.9 Gastro-esophageal reflux disease without esophagitis; Z87.891 Personal history of nicotine dependence; Z85.41 Personal history of malignant neoplasm of cervix uteri; Z90.49 Acquired absence of other specified parts of digestive tract; Z90.710 Acquired absence of both cervix and uterus
CPT/HCPCS: 77063; 77067

== ENCOUNTER 2018-08-08 19:18 | Emergency (ER) | payer MEDICARE, OTHER ==
[~2018-08-08] VITALS: Ht 144.8 cm; Wt 44.0 kg
[~2018-08-08 19:18] MED LIST changes: +ALBU2.5V8 INH; +LOSA-73 PO; -LOSA50TA7 PO; -PROAIR HFA8.5 GM INH
[2018-08-08] MEDS ORDERED: IV NORMAL SALINE 1000ML BAG 1,000 ML IV SCH (20:07)
[2018-08-08] MEDS ORDERED: IPRATRPIUM/ALBUTEROL 0.5/2.5MG 3 ML NEBU. NEB ONE (20:15)
[2018-08-08 20:35] LABS: CALCIUM 8.9 mg/dL (8.5-10.1); CREATININE 1.1 mg/dL (0.6-1.0); GFR 58.1; POTASSIUM 3.7 mmol/L (3.5-5.1)
[2018-08-08 20:36] LABS: BASO % 1 % (0-3); EOS # 0.1 x10^3/uL (0.0-0.7); EOS % 1 % (0-3); HEMATOCRIT 33.8 % (36.0-47.0); HEMOGLOBIN 10.8 g/dL (12.0-15.5); LYMPH # 1.5 x10^3/uL (1.0-4.8); LYMPH % 31 % (24-48); MEAN CORPUSCULAR HEMOGLOBIN 29 pg (25-35); MEAN CORPUSCULAR HGB CONC 32 g/dL (31-37); MEAN CORPUSCULAR VOLUME 91 fL (79-100); MONO # 0.2 x10^3/uL (0.0-1.1); MONO % 4 % (0-9); NEUT % 63 % (31-73); PLATELET COUNT 147 x10^3/uL (140-400); RED BLOOD COUNT 3.71 x10^6/uL (3.50-5.40); WHITE BLOOD COUNT 4.7 x10^3/uL (4.0-11.0)
[2018-08-08 20:41] LABS: ALBUMIN 3.8 g/dL (3.4-5.0); ALBUMIN/GLOBULIN RATIO 0.7 (1.0-1.7); INFLUENZA A PATIENT NEGATIVE (NEGATIVE); INFLUENZA B PATIENT NEGATIVE (NEGATIVE); TOTAL BILIRUBIN 0.3 mg/dL (0.2-1.0); TOTAL PROTEIN 9.2 g/dL (6.4-8.2)
[2018-08-08 21:05] LABS: PROTHROMBIN TIME PATIENT 15.1 SEC (11.7-14.0)
--- NOTE | 2018-08-08 21:37 | RAD ---
AP and lateral chest. HISTORY: Short of breath AP and lateral views were taken of the chest. There is no pleural effusion. The heart is normal in size. There are no confluent infiltrates. There is not evidence of heart failure. There is mild linear atelectasis on the lateral view. IMPRESSION: 1. Linear atelectasis without confluent infiltrates. Electronically signed by: Shine Lorenzana MD (08/08/2018 9:34 PM) [id number]
--- NOTE | 2018-08-08 21:57 | RAD ---
CT brain without contrast. HISTORY: Right-sided headache CT scan of brain was done without contrast. Sinuses are clear except for mild mucosal thickening in the right sphenoid sinus. There is no skull fracture. Mastoids are normally aerated. There is diffuse atrophy. There is no intracranial hemorrhage or subdural hematoma. Ventricles are normal in size. There is no mass or shift of the midline. IMPRESSION: 1. Atrophy. 2. No intracranial hemorrhage or acute finding noted. Electronically signed by: Shine Lorenzana MD (08/08/2018 9:54 PM) [id number]
--- NOTE | 2018-08-08 22:35 | PHYS DOC ---
Past Medical History Past Medical History: COPD, Hypertension, Other Additional Past Medical Histor: borderline diabetes Past Surgical History: Cholecystectomy, Hysterectomy Additional Past Surgical Histo: thyroidectomy Alcohol Use: None Drug Use: None Adult General Chief Complaint Chief Complaint: SHORTNESS OF BREATH HPI HPI Patient is a 77 year old female presents complaining of shortness of breath that started approximately a day ago. Worse with exertion. She is on chronic home oxygen therapy at 2 L. Also notes a right-sided headache, not worst headache of life. No visual changes. Feels like the pain is on the outside. Nothing makes the headache better or worse.[] Review of Systems Review of Systems Constitutional: Denies fever or chills [] Eyes: Denies change in visual acuity, redness, or eye pain [] HENT: Denies nasal congestion or sore throat [] Respiratory: See history of present illness[] Cardiovascular: No chest pain or palpitations[] GI: Denies abdominal pain, nausea, vomiting, bloody stools or diarrhea [] : Denies dysuria or hematuria [] Musculoskeletal: Denies back pain or joint pain [] Integument: Denies rash or skin lesions [] Neurologic: Denies focal weakness or sensory changes , see history of present illness[] Endocrine: Denies polyuria or polydipsia [] All other systems were reviewed and found to be within normal limits, except as documented in this note. Current Medications Current Medications Current Medications Medications (Trade) Dose Ordered Sig/Celia Start Time Stop Time Status Last Admin Dose Admin Albuterol/ Ipratropium (Duoneb) 3 ml 1X ONCE 08/08/18 20:15 08/08/18 20:16 DC 08/08/18 20:25 3 ML Ketorolac Tromethamine (Toradol 15mg Vial) 15 mg 1X ONCE 08/08/18 23:00 08/08/18 23:01 DC 08/08/18 22:32 15 MG Methylprednisolone Sodium Succinate (SOLU-Medrol 125MG VIAL) 125 mg 1X ONCE 08/08/18 23:00 08/08/18 23:01 DC 08/08/18 22:32 125 MG Sodium Chloride 1,000 ml @ 100 mls/hr Q10H 08/08/18 20:07 08/09/18 06:06 08/08/18 20:21 100 MLS/HR Allergies Allergies Allergies Coded Allergies Type Severity Reaction Last Updated Verified No Known Medication Allergies Allergy Unknown 04/14/16 Yes codeine Adverse Reaction Intermediate vomiting 04/14/16 Yes Physical Exam Physical Exam Constitutional: Well developed, well nourished, no acute distress, non-toxic appearance. [] HENT: Normocephalic, atraumatic, bilateral external ears normal, oropharynx moist, no oral exudates, nose normal. [] Eyes: PERRLA, EOMI, conjunctiva normal, no discharge. [] Neck: Normal range of motion, no tenderness, supple, no stridor. [] Cardiovascular:Heart rate regular rhythm, no murmur [] Lungs & Thorax: Bilateral breath sounds clear to auscultation [] Abdomen: Bowel sounds normal, soft, no tenderness, no masses, no pulsatile masses. [] Skin: Warm, dry, no erythema, no rash. [] Back: No tenderness, no CVA tenderness. [] Extremities: No tenderness, no cyanosis, no clubbing, ROM intact, no edema. [] Neurologic: Alert and oriented X 3, normal motor function, normal sensory function, no focal deficits noted. [] Psychologic: Affect normal, judgement normal, mood normal. [] Current Patient Data Vital Signs Vital Signs Date Time Temp Pulse Resp B/P (MAP) Pulse Ox O2 Delivery O2 Flow Rate FiO2 08/08/18 21:40 92 16 197/74 (115) 100 Nasal Cannula 2.5 08/08/18 19:30 98.1 98.1 Lab Values Laboratory Tests Test 08/08/18 20:00 08/08/18 20:35 08/08/18 22:35 White Blood Count 4.7 x10^3/uL (4.0-11.0) Red Blood Count 3.71 x10^6/uL (3.50-5.40) Hemoglobin 10.8 g/dL (12.0-15.5) L Hematocrit 33.8 % (36.0-47.0) L Mean Corpuscular Volume 91 fL (79-100) Mean Corpuscular Hemoglobin 29 pg (25-35) Mean Corpuscular Hemoglobin Concent 32 g/dL (31-37) Red Cell Distribution Width 16.0 % (11.5-14.5) H Platelet Count 147 x10^3/uL (140-400) Neutrophils (%) (Auto) 63 % (31-73) Lymphocytes (%) (Auto) 31 % (24-48) Monocytes (%) (Auto) 4 % (0-9) Eosinophils (%) (Auto) 1 % (0-3) Basophils (%) (Auto) 1 % (0-3) Neutrophils # (Auto) 3.0 x10^3uL (1.8-7.7) Lymphocytes # (Auto) 1.5 x10^3/uL (1.0-4.8) Monocytes # (Auto) 0.2 x10^3/uL (0.0-1.1) Eosinophils # (Auto) 0.1 x10^3/uL (0.0-0.7) Basophils # (Auto) 0.0 x10^3/uL (0.0-0.2) Erythrocyte Sedimentation Rate 54 (0-25) H Sodium Level 140 mmol/L (136-145) Potassium Level 3.7 mmol/L (3.5-5.1) Chloride Level 100 mmol/L (98-107) Carbon Dioxide Level 34 mmol/L (21-32) H Anion Gap 6 (6-14) Blood Urea Nitrogen 11 mg/dL (7-20) Creatinine 1.1 mg/dL (0.6-1.0) H Estimated GFR (Cockcroft-Gault) 58.1 BUN/Creatinine Ratio 10 (6-20) Glucose Level 126 mg/dL (70-99) H Calcium Level 8.9 mg/dL (8.5-10.1) Total Bilirubin 0.3 mg/dL (0.2-1.0) Aspartate Amino Transferase (AST) 22 U/L (15-37) Alanine Aminotransferase (ALT) 21 U/L (14-59) Alkaline Phosphatase 94 U/L (46-116) Troponin I Quantitative < 0.017 ng/mL (0.000-0.055) BO-Foh-K-Type Natriuretic Peptide 346 pg/mL (0-449) Total Protein 9.2 g/dL (6.4-8.2) H Albumin 3.8 g/dL (3.4-5.0) Albumin/Globulin Ratio 0.7 (1.0-1.7) L Influenza Type A Antigen Negative (NEGATIVE) Influenza Type B Antigen Negative (NEGATIVE) Prothrombin Time 15.1 SEC (11.7-14.0) H Prothrombin Time INR 1.2 (0.8-1.1) H Urine Collection Type Unknown Urine Color Yellow Urine Clarity Clear Urine pH 5.0 Urine Specific [place] 1.015 Urine Protein Negative mg/dL (NEG-TRACE) Urine Glucose (UA) Negative mg/dL (NEG) Urine Ketones (Stick) Negative mg/dL (NEG) Urine Blood Negative (NEG) Urine Nitrite Negative (NEG) Urine Bilirubin Negative (NEG) Urine Urobilinogen Dipstick 0.2 mg/dL (0.2 mg/dL) Urine Leukocyte Esterase Negative (NEG) Urine RBC 0 /HPF (0-2) Urine WBC Rare /HPF (0-4) Urine Squamous Epithelial Cells Occ /LPF Urine Bacteria Few /HPF (0-FEW) Urine Mucus Slight /LPF Laboratory Tests 08/08/18 20:00 Laboratory Tests 08/08/18 20:00 EKG EKG EKG shows sinus rhythm at 90 bpm, normal axis, QTC 442 ms, no ST elevation, no acute changes when compared with EKG of 01/04/2018. Interpreted by me at 2011[] Radiology/Procedures Radiology/Procedures AP and lateral chest. HISTORY: Short of breath AP and lateral views were taken of the chest. There is no pleural effusion. The heart is normal in size. There are no confluent infiltrates. There is not evidence of heart failure. There is mild linear atelectasis on the lateral view. IMPRESSION: 1. Linear atelectasis without confluent infiltrates. CT brain without contrast. HISTORY: Right-sided headache CT scan of brain was done without contrast. Sinuses are clear except for mild mucosal thickening in the right sphenoid sinus. There is no skull fracture. Mastoids are normally aerated. There is diffuse atrophy. There is no intracranial hemorrhage or subdural hematoma. Ventricles are normal in size. There is no mass or shift of the midline. IMPRESSION: 1. Atrophy. 2. No intracranial hemorrhage or acute finding noted.[] Course & Med Decision Making Course & Med Decision Making Pertinent Labs and Imaging studies reviewed. (See chart for details) ED course: Patient arrived, was placed in bed, and tolerated exam well. She was transported to and from [place] with any complications. She got significant relief with medications administered. Discussed findings and plan with patient and family who voiced understanding. All questions were answered. Medical decision making: This appears to be a COPD exacerbation, and patient reports that this is worse this year than usual. There is does not appear to be an acute coronary syndrome, congestive heart failure. Also concerned about possibility of temporal arthritis however her tenderness is not along the course of the temporal artery. Patient does have an elevated sedimentation rate. No evidence of intracranial mass or bleed. We will prescribe steroids for both the COPD as well as possibility of temporal arteritis. There are no acute visual changes noted.[] Dragon Disclaimer Dragon Disclaimer This electronic medical record was generated, in whole or in part, using a voice recognition dictation system. Departure Departure Impression: Primary Impression: COPD with acute exacerbation Additional Impression: Headache Disposition: HOME, SELF-CARE Condition: IMPROVED Referrals: COSMO CASTRO MD (PCP) Follow-up in 2 days Patient Instructions: Chronic Obstructive Pulmonary Disease Exacerbation, General Headache Without Cause Additional Instructions: Follow-up with your regular doctor in 2 days. Return to the ER if worsening difficulty breathing, change in vision, worsening headache, or any other concerns. Scripts Prednisone (PREDNISONE) 20 Mg Tablet 20 MG PO DAILY, #20 TAB 3 tablets daily for 3 days Then 2 tablets daily for days 4 through 6 Then 1 tablet daily for days 6 through 9 Then one half tablet daily for days 10 TRHOUGH 13 Prov: BILL RODRIGUEZ DO 08/08/18 Meloxicam (MELOXICAM) 7.5 Mg Tablet 7.5 MG PO DAILY, #20 TAB Prov: BILL RODRIGUEZ DO 08/08/18 Problem Qualifiers Additional Impression: Headache Headache type: unspecified Headache chronicity pattern: unspecified pattern Intractability: not intractable Qualified Codes: R51 - Headache BILL RODRIGUEZ DO Aug 08, 2018 22:35
[2018-08-08 22:53] LABS: BILIRUBIN,URINE NEGATIVE (NEG); CLARITY,URINE CLEAR; COLOR,URINE YELLOW; NITRITE,URINE NEGATIVE (NEG); PROTEIN,URINE NEGATIVE (NEG-TRACE); UROBILINOGEN,URINE 0.2 mg/dL (0.2 mg/dL)
[2018-08-08 22:58] LABS: BACTERIA,URINE FEW /HPF (0-FEW); RBC,URINE 0 /HPF (0-2); SQUAMOUS EPITHELIAL CELL,UR OCC /LPF; WBC,URINE RARE /HPF (0-4)
[2018-08-08] MEDS ORDERED: KETOROLAC 15 MG/ML VIAL. IV ONE (23:00)
[2018-08-08] MEDS ORDERED: methylPREDNISolone SOD SUCC PF 125 MG/2 ML VIAL. IV ONE (23:00)
[2018-08-08 23:45] VITALS: BP 197/94
[2018-08-08] MEDS ORDERED: PRED20TA PO (23:50)
[2018-08-08] MEDS ORDERED: MELO7.5T29 PO (23:50)
--- NOTE | 2018-08-09 14:11 | EKG ---
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
[2018-08-13] MEDS ORDERED: PRED20TA PO (08:45)
[2018-08-13] MEDS ORDERED: MELO7.5T29 PO (08:45)
[2018-08-13] MEDS ORDERED: LOSA-73 PO (12:43)
== END 2018-08-08 23:55 | disposition home or self-care (01) ==
LOC: ER 19:18
DX: J44.1 Chronic obstructive pulmonary disease with (acute) exacerbation (principal); R51 Headache; I10 Essential (primary) hypertension; Z88.5 Allergy status to narcotic agent
CPT/HCPCS: 36415; 70450; 71046; 80053; 81001; 83880; 84484; 85025; 85610; 85651; 87804; 93005; 94640; 96374; 96375; 99284; J1885; J2930; J7030; J7620

== ENCOUNTER 2018-08-12 11:05 | Inpatient (IN) | payer MEDICARE, OTHER ==
[~2018-08-12] VITALS: Ht 147.3 cm; Wt 42.9 kg
[~2018-08-12 11:05] MED LIST changes: +MELO7.5T29 PO
[2018-08-12] MEDS ORDERED: NITROGLYCERIN SUBLINGUAL 0.4 MG BOTTLE OF 25. SL PRN (11:30)
[2018-08-12 11:40] LABS: BASO # 0.1 x10^3/uL (0.0-0.2); BASO % 1 % (0-3); EOS % 0 % (0-3); HEMATOCRIT 37.7 % (36.0-47.0); HEMOGLOBIN 12.1 g/dL (12.0-15.5); LYMPH # 1.7 x10^3/uL (1.0-4.8); LYMPH % 24 % (24-48); MEAN CORPUSCULAR HEMOGLOBIN 29 pg (25-35); MEAN CORPUSCULAR HGB CONC 32 g/dL (31-37); MEAN CORPUSCULAR VOLUME 90 fL (79-100); MONO # 0.2 x10^3/uL (0.0-1.1); MONO % 3 % (0-9); NEUT % 73 % (31-73); PLATELET COUNT 185 x10^3/uL (140-400); RED BLOOD COUNT 4.19 x10^6/uL (3.50-5.40); RED CELL DISTRIBUTION WIDTH 16.5 % (11.5-14.5); WHITE BLOOD COUNT 6.9 x10^3/uL (4.0-11.0)
[2018-08-12] MEDS ORDERED: ASPIRIN 325 MG TABLET PO ONE (11:45)
[2018-08-12 11:50] LABS: CALCIUM 9.4 mg/dL (8.5-10.1); GFR 64.9
[2018-08-12 11:54] LABS: PROTHROMBIN TIME PATIENT 14.4 SEC (11.7-14.0)
--- NOTE | 2018-08-12 11:56 | RAD ---
Examination: PORTABLE CHEST 1V History: ELEVATED BLOOD PRESSURE Comparison/Correlation: 08/08/2018 two-view chest x-ray exam Findings: Portable upright frontal view chest was obtained. Heart size is normal. No pneumothorax. Interstitial thickening of the lung hyde is mild and nonspecific. No focal infiltrate. No pleural effusion. Bony structures are unremarkable. Right upper quadrant surgical clips noted. Impression: No new infiltrate. No significant change. Electronically signed by: Brian Barker MD (08/12/2018 11:53 AM) [id number]
[2018-08-12 11:57] LABS: ALBUMIN 3.7 g/dL (3.4-5.0); ALBUMIN/GLOBULIN RATIO 0.7 (1.0-1.7); MAGNESIUM 2.1 mg/dL (1.8-2.4); TOTAL BILIRUBIN 0.4 mg/dL (0.2-1.0); TOTAL PROTEIN 8.8 g/dL (6.4-8.2)
[2018-08-12 12:04] LABS: CREATINE KINASE 46 U/L (26-192)
[2018-08-12] MEDS ORDERED: ACETAMINOPHEN 325 MG TABLET. PO ONE (12:15)
--- NOTE | 2018-08-12 12:18 | EKG ---
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
--- NOTE | 2018-08-12 13:05 | PHYS DOC ---
Past Medical History Past Medical History: COPD, Hypertension, Other Additional Past Medical Histor: borderline diabetes Past Surgical History: Cholecystectomy, Hysterectomy Additional Past Surgical Histo: thyroidectomy Alcohol Use: None Drug Use: None Adult General Chief Complaint Chief Complaint: CHEST PAIN HPI HPI Patient is a 77 year old female presented ER today for evaluation of chest pain started earlier today. by the Time she got here she felt much better. She denies any headache, no neck pain, no blurry vision. Patient was seen here on Friday for the same thing however she declined hospital admission. She denies any history of coronary artery disease, no history CHF. Patient had a history of hypertension. She denies any abdominal pain, no nausea vomiting. Review of Systems Review of Systems Constitutional: Denies fever or chills [] Eyes: Denies change in visual acuity, redness, or eye pain [] HENT: Denies nasal congestion or sore throat [] Respiratory: Denies cough or shortness of breath [] Cardiovascular: No additional information not addressed in HPI [] GI: Denies abdominal pain, nausea, vomiting, bloody stools or diarrhea [] : Denies dysuria or hematuria [] Musculoskeletal: Denies back pain or joint pain [] Integument: Denies rash or skin lesions [] Neurologic: Denies headache, focal weakness or sensory changes [] Endocrine: Denies polyuria or polydipsia [] All other systems were reviewed and found to be within normal limits, except as documented in this note. Current Medications Current Medications Current Medications Medications (Trade) Dose Ordered Sig/Celia Start Time Stop Time Status Last Admin Dose Admin Acetaminophen (Tylenol) 650 mg 1X ONCE 08/12/18 12:15 08/12/18 12:18 DC 08/12/18 12:28 650 MG Aspirin (Enrrique Aspirin) 325 mg 1X ONCE 08/12/18 11:45 08/12/18 11:46 DC 08/12/18 12:01 325 MG Nitroglycerin (Nitro-Bid Oint) 1 inch 1X ONCE 08/12/18 13:15 08/12/18 13:16 DC 08/12/18 13:18 1 INCH Nitroglycerin (Nitrostat) 0.4 mg PRN Q5MIN PRN 08/12/18 11:30 08/13/18 11:29 08/12/18 12:03 0.4 MG Allergies Allergies Physical Exam Physical Exam Constitutional: Well developed, well nourished, no acute distress, non-toxic appearance. [] HENT: Normocephalic, atraumatic, bilateral external ears normal, oropharynx moist, no oral exudates, nose normal. [] Eyes: PERRLA, EOMI, conjunctiva normal, no discharge. [] Neck: Normal range of motion, no tenderness, supple, no stridor. [] Cardiovascular:Heart rate regular rhythm, no murmur [] Lungs & Thorax: Bilateral breath sounds clear to auscultation [] Abdomen: Bowel sounds normal, soft, no tenderness, no masses, no pulsatile masses. [] Skin: Warm, dry, no erythema, no rash. [] Back: No tenderness, no CVA tenderness. [] Extremities: No tenderness, no cyanosis, no clubbing, ROM intact, no edema. [] Neurologic: Alert and oriented X 3, normal motor function, normal sensory function, no focal deficits noted. [] Psychologic: Affect normal, judgement normal, mood normal. [] Current Patient Data Vital Signs Vital Signs Date Time Temp Pulse Resp B/P (MAP) Pulse Ox O2 Delivery O2 Flow Rate FiO2 08/12/18 13:18 74 182/81 08/12/18 13:05 20 99 Nasal Cannula 2.0 08/12/18 11:08 98.3 98.3 Lab Values Laboratory Tests Test 08/12/18 11:25 White Blood Count 6.9 x10^3/uL (4.0-11.0) Red Blood Count 4.19 x10^6/uL (3.50-5.40) Hemoglobin 12.1 g/dL (12.0-15.5) Hematocrit 37.7 % (36.0-47.0) Mean Corpuscular Volume 90 fL (79-100) Mean Corpuscular Hemoglobin 29 pg (25-35) Mean Corpuscular Hemoglobin Concent 32 g/dL (31-37) Red Cell Distribution Width 16.5 % (11.5-14.5) H Platelet Count 185 x10^3/uL (140-400) Neutrophils (%) (Auto) 73 % (31-73) Lymphocytes (%) (Auto) 24 % (24-48) Monocytes (%) (Auto) 3 % (0-9) Eosinophils (%) (Auto) 0 % (0-3) Basophils (%) (Auto) 1 % (0-3) Neutrophils # (Auto) 5.0 x10^3uL (1.8-7.7) Lymphocytes # (Auto) 1.7 x10^3/uL (1.0-4.8) Monocytes # (Auto) 0.2 x10^3/uL (0.0-1.1) Eosinophils # (Auto) 0.0 x10^3/uL (0.0-0.7) Basophils # (Auto) 0.1 x10^3/uL (0.0-0.2) Prothrombin Time 14.4 SEC (11.7-14.0) H Prothrombin Time INR 1.2 (0.8-1.1) H PTT 24 SEC (24-38) Sodium Level 138 mmol/L (136-145) Potassium Level 4.0 mmol/L (3.5-5.1) Chloride Level 99 mmol/L (98-107) Carbon Dioxide Level 31 mmol/L (21-32) Anion Gap 8 (6-14) Blood Urea Nitrogen 18 mg/dL (7-20) Creatinine 1.0 mg/dL (0.6-1.0) Estimated GFR (Cockcroft-Gault) 64.9 BUN/Creatinine Ratio 18 (6-20) Glucose Level 114 mg/dL (70-99) H Calcium Level 9.4 mg/dL (8.5-10.1) Magnesium Level 2.1 mg/dL (1.8-2.4) Total Bilirubin 0.4 mg/dL (0.2-1.0) Aspartate Amino Transferase (AST) 26 U/L (15-37) Alanine Aminotransferase (ALT) 21 U/L (14-59) Alkaline Phosphatase 70 U/L (46-116) Creatine Kinase 46 U/L (26-192) Creatine Kinase MB (Mass) 0.8 ng/mL (0.0-3.6) Creatine Kinase MB Relative Index % (0-4) Troponin I Quantitative < 0.017 ng/mL (0.000-0.055) RC-Viv-H-Type Natriuretic Peptide 1595 pg/mL (0-449) H Total Protein 8.8 g/dL (6.4-8.2) H Albumin 3.7 g/dL (3.4-5.0) Albumin/Globulin Ratio 0.7 (1.0-1.7) L Lipase 61 U/L (73-393) L Laboratory Tests 08/12/18 11:25 Laboratory Tests 08/12/18 11:25 EKG EKG EKG WAS READ BY THIS PHYSICIAN AT 1116, RATE OF 83 BPM, SINUS, NO STEMI[] Radiology/Procedures Radiology/Procedures [][facility] [address] [place] [address] IMAGING REPORT Signed PATIENT: MAN LAMBERT ACCOUNT: [id number] : 1940 LOCATION: ER AGE: 77 SEX: F EXAM STATUS: REG ER ORD. PHYSICIAN: ROOPA TATE DO REASON: CHEST PAIN PROCEDURE: PORTABLE CHEST 1V Examination: PORTABLE CHEST 1V History: ELEVATED BLOOD PRESSURE Comparison/Correlation: 08/08/2018 two-view chest x-ray exam Findings: Portable upright frontal view chest was obtained. Heart size is normal. No pneumothorax. Interstitial thickening of the lung hyde is mild and nonspecific. No focal infiltrate. No pleural effusion. Bony structures are unremarkable. Right upper quadrant surgical clips noted. Impression: No new infiltrate. No significant change. Electronically signed by: Brian Estrada MD (08/12/2018 11:53 AM) [id number] DICTATED and SIGNED BY: BRIAN ESTRADA MD DATE: 08/12/18 1153 Course & Med Decision Making Course & Med Decision Making Pertinent Labs and Imaging studies reviewed. (See chart for details) [] Dragon Disclaimer Dragon Disclaimer This electronic medical record was generated, in whole or in part, using a voice recognition dictation system. Departure Departure Impression: Primary Impression: Chest pain Additional Impression: HTN (hypertension) Disposition: ADMITTED INPATIENT Admitting Physician: Alisha Marte Condition: IMPROVED Referrals: ALISHA MARTE MD (PCP) Problem Qualifiers ROOPA TATE DO Aug 12, 2018 13:05
[2018-08-12] MEDS ORDERED: NITROGLYCERIN OINT 1 GM PACKET. TP ONE ×2 (13:15→17:15)
[2018-08-12] MEDS ORDERED: ONDANSETRON PF 4 MG/2 ML VIAL. IV PRN (13:30)
[2018-08-12 13:48] LABS: BILIRUBIN,URINE NEGATIVE (NEG); CLARITY,URINE CLEAR; COLOR,URINE YELLOW; NITRITE,URINE NEGATIVE (NEG); PH,URINE 6.5; PROTEIN,URINE NEGATIVE (NEG-TRACE); UROBILINOGEN,URINE 0.2 mg/dL (0.2 mg/dL)
[2018-08-12 14:02] LABS: BACTERIA,URINE 0 /HPF (0-FEW); HYALINE CASTS, URINE MODERATE /HPF; RBC,URINE 0 /HPF (0-2); SQUAMOUS EPITHELIAL CELL,UR FEW /LPF
[2018-08-12 14:58] VITALS: BP 176/70
[2018-08-12] MEDS ORDERED: OMEP20TA63 PO (15:44)
[2018-08-12] MEDS ORDERED: C.DIFF MED SCREEN BY RX. MC ONE (16:30)
--- NOTE | 2018-08-12 16:44 | NUR ---
The patient, MAN LAMBERT, 77 y/o, F admitted by COSMO CASTRO MD, was given written information regarding hospital policies, unit procedures and contact persons. Valuables were checked
[2018-08-12] MEDS ORDERED: ALBUTEROL SULFATE 2.5 MG/3 ML NEBU. INH PRN (17:15)
[2018-08-12] MEDS ORDERED: LOSARTAN POTASSIUM 25 MG TABLET. PO ONE (17:15)
[2018-08-12] MEDS ORDERED: amLODIPine BESYLATE 5 MG TABLET PO ONE (17:15)
[2018-08-12] MEDS ORDERED: MELO7.5T29 PO (17:40)
[2018-08-12] MEDS ORDERED: hydrALAZINE 20 MG/ML VIAL. IVP PRN (18:00)
--- NOTE | 2018-08-12 19:19 | PDOC2 ---
CARDIAC CONSULT DATE OF CONSULT Date of Consult DATE: 08/12/18 TIME: 18:51 REASON FOR CONSULT Reason for Consult: Chest pain REFERRING PHYSICIAN Referring Physician: Som SOURCE Source: Chart review, Patient HISTORY OF PRESENT ILLNESS HISTORY OF PRESENT ILLNESS This is a pleasant 77 yo female admitted for complains of chest pain. Reports that she was in ED Friday for SOA particularly with exertion but no CP and also was noted with FERNANDEZ and was DCd that day given steroids. She said she may have had an issue with her O2. Today she presents with chest pain. This was intermittent throbbing sensation since she was released from ED Friday. Positive for nausea at times with this symptoms and today this lasted about 15 minutes. She does GERD but controlled with medication. She is significant for COPD with O2 dependency continuous 2LPM. No symptoms of diaphoresis, jaw tightness. She also has been having some discomfort between her shoulder blades at the lower region. No vomiting, no recent falls or injury. She does have chronic cough and productive at times but not more that her usual. No changes to her activity tolerance. No exertional CP. She does not take statin nor ASA. No prior hx of CAD, VTE. PAST MEDICAL HISTORY Cardiovascular: HTN Pulmonary: COPD (O2 dependent) CENTRAL NERVOUS SYSTEM: Other (No pertinent history) GI: GERD Heme/Onc: No pertinent hx Hepatobiliary: No pertinent hx Psych: Anxiety Musculoskeletal: Osteoarthritis Rheumatologic: No pertinent hx Infectious disease: No pertinent hx ENT: No pertinent hx Endocrine: Hypothyroidism PAST SURGICAL HISTORY Past Surgical History: Cholecystectomy, Hysterectomy (partial), Other ( thyroidectomy partial) FAMILY HISTORY Family History: Heart Disease (mother and father) SOCIAL HISTORY Smoke: Quit (10 yrs ago >40pk yr) ALCOHOL: none Drugs: None Lives: with Family CURRENT MEDICATIONS CURRENT MEDICATIONS Current Medications Medications (Trade) Dose Ordered Sig/Celia Route PRN Reason Start Time Stop Time Status Last Admin Dose Admin Aspirin (Enrrique Aspirin) 325 mg 1X ONCE PO 08/12/18 11:45 08/12/18 11:46 DC 08/12/18 12:01 Nitroglycerin (Nitrostat) 0.4 mg PRN Q5MIN PRN SL CP RATING > 1/10 08/12/18 11:30 08/13/18 11:29 08/12/18 12:03 Acetaminophen (Tylenol) 650 mg 1X ONCE PO 08/12/18 12:15 08/12/18 12:18 DC 08/12/18 12:28 Nitroglycerin (Nitro-Bid Oint) 1 inch 1X ONCE TP 08/12/18 13:15 08/12/18 13:16 DC 08/12/18 13:18 Losartan Potassium (Cozaar) 50 mg 1X ONCE PO 08/12/18 17:15 08/12/18 17:18 DC 08/12/18 17:42 Amlodipine Besylate (Norvasc) 5 mg 1X ONCE PO 08/12/18 17:15 08/12/18 17:18 DC 08/12/18 17:42 ALLERGIES ALLERGIES: Coded Allergies: codeine (Verified Adverse Reaction, Intermediate, vomiting, 08/12/18) ROS Review of System 14 point ROS evaluated with pertinent positives noted per HPI PHYSICAL EXAM General: Alert, Oriented X3, Cooperative, No acute distress HEENT: Atraumatic, Mucous membr. moist/pink Lungs: Other (diminished) Heart: Regular rate (SR), Other (distal heart sounds) Abdomen: Soft, No tenderness Extremities: No cyanosis, No edema Skin: No breakdown Neuro: Normal speech, Sensation intact Psych/Mental Status: Mental status NL, Mood NL MUSCULOSKELETAL: Osteoarthritic changes both hands VITALS VITALS Vital Signs Date Time Temp Pulse Resp B/P (MAP) Pulse Ox O2 Delivery O2 Flow Rate FiO2 08/12/18 17:42 79 181/74 08/12/18 16:23 Nasal Cannula 2.0 08/12/18 14:58 99.0 18 99 99.0 LABS Lab: Laboratory Tests Test 08/12/18 11:25 08/12/18 13:34 White Blood Count 6.9 x10^3/uL (4.0-11.0) Red Blood Count 4.19 x10^6/uL (3.50-5.40) Hemoglobin 12.1 g/dL (12.0-15.5) Hematocrit 37.7 % (36.0-47.0) Mean Corpuscular Volume 90 fL (79-100) Mean Corpuscular Hemoglobin 29 pg (25-35) Mean Corpuscular Hemoglobin Concent 32 g/dL (31-37) Red Cell Distribution Width 16.5 % (11.5-14.5) Platelet Count 185 x10^3/uL (140-400) Neutrophils (%) (Auto) 73 % (31-73) Lymphocytes (%) (Auto) 24 % (24-48) Monocytes (%) (Auto) 3 % (0-9) Eosinophils (%) (Auto) 0 % (0-3) Basophils (%) (Auto) 1 % (0-3) Neutrophils # (Auto) 5.0 x10^3uL (1.8-7.7) Lymphocytes # (Auto) 1.7 x10^3/uL (1.0-4.8) Monocytes # (Auto) 0.2 x10^3/uL (0.0-1.1) Eosinophils # (Auto) 0.0 x10^3/uL (0.0-0.7) Basophils # (Auto) 0.1 x10^3/uL (0.0-0.2) Prothrombin Time 14.4 SEC (11.7-14.0) Prothromb Time International Ratio 1.2 (0.8-1.1) Activated Partial Thromboplast Time 24 SEC (24-38) Sodium Level 138 mmol/L (136-145) Potassium Level 4.0 mmol/L (3.5-5.1) Chloride Level 99 mmol/L (98-107) Carbon Dioxide Level 31 mmol/L (21-32) Anion Gap 8 (6-14) Blood Urea Nitrogen 18 mg/dL (7-20) Creatinine 1.0 mg/dL (0.6-1.0) Estimated GFR (Cockcroft-Gault) 64.9 BUN/Creatinine Ratio 18 (6-20) Glucose Level 114 mg/dL (70-99) Calcium Level 9.4 mg/dL (8.5-10.1) Magnesium Level 2.1 mg/dL (1.8-2.4) Total Bilirubin 0.4 mg/dL (0.2-1.0) Aspartate Amino Transf (AST/SGOT) 26 U/L (15-37) Alanine Aminotransferase (ALT/SGPT) 21 U/L (14-59) Alkaline Phosphatase 70 U/L (46-116) Creatine Kinase 46 U/L (26-192) Creatine Kinase MB (Mass) 0.8 ng/mL (0.0-3.6) Creatine Kinase MB Relative Index % (0-4) Troponin I Quantitative < 0.017 ng/mL (0.000-0.055) YK-Tqt-[id number]-Type Natriuretic Peptide 1595 pg/mL (0-449) Total Protein 8.8 g/dL (6.4-8.2) Albumin 3.7 g/dL (3.4-5.0) Albumin/Globulin Ratio 0.7 (1.0-1.7) Lipase 61 U/L (73-393) Urine Collection Type Unknown Urine Color Yellow Urine Clarity Clear Urine pH 6.5 Urine Specific [place] 1.010 Urine Protein Negative mg/dL (NEG-TRACE) Urine Glucose (UA) Negative mg/dL (NEG) Urine Ketones (Stick) Negative mg/dL (NEG) Urine Blood Negative (NEG) Urine Nitrite Negative (NEG) Urine Bilirubin Negative (NEG) Urine Urobilinogen Dipstick 0.2 mg/dL (0.2 mg/dL) Urine Leukocyte Esterase Trace (NEG) Urine RBC 0 /HPF (0-2) Urine WBC 1-4 /HPF (0-4) Urine Squamous Epithelial Cells Few /LPF Urine Transitional Epithelial Cells Few /LPF Urine Bacteria 0 /HPF (0-FEW) Urine Hyaline Casts Moderate /HPF Urine Mucus Mod /LPF ECHOCARDIOGRAM ECHOCARDIOGRAM <Conclusion> The left ventricular systolic function is normal. The Ejection Fraction is 60-65%. There is normal LV segmental wall motion. Transmitral Doppler flow pattern is Grade I-abnormal relaxation pattern. Trace mitral regurgitation. Mild tricuspid regurgitation. The pulmonary artery systolic pressure is estimated at 57 mmHg. There is moderate pulmonary hypertension. There is no evidence of significant pericardial effusion. DATE: 09/18/16 1302 ASSESSMENT/PLAN ASSESSMENT/PLAN 1. Atypical CP: could be related with uncontrolled HTN 2. COPD with O2 dependency: Possibly Stage 2-3 3. Suspect secondary pulmonary HTN 4. Accelerated HTN: suspect inadequate coverage 5. Acquired hypothyroidism Recommendations 1. TTE in AM, TSH, lipids, Trend troponin 2. Increase losartan and start on norvasc. Will consider HCTZ if BP labile. ASA 3. Continue COPD regimen 4. Could consider outpt stress test if pending cardiac testing are unremarkable WILFREDO ARANGO APRN Aug 12, 2018 19:19
[2018-08-12 19:30] VITALS: BP 161/70
[2018-08-12] MEDS: BUDESONIDE 0.5 MG/2 ML NEBU. NEB SCH (20:00)
[2018-08-12] MEDS: IPRATRPIUM/ALBUTEROL 0.5/2.5MG 3 ML NEBU. NEB SCH (20:34)
[2018-08-12] MEDS ORDERED: BENZONATATE 100 MG CAPSULE. PO PRN (21:00)
[2018-08-12 22:24] VITALS: BP 161/67
[2018-08-13 01:37] LABS: CHOLESTEROL/HDL RATIO 3.9
[2018-08-13 03:11] VITALS: BP 154/67
[2018-08-13] MEDS ORDERED: LEVOTHYROXINE 50 MCG TABLET PO SCH (06:00)
[2018-08-13 07:00] VITALS: BP 169/57
[2018-08-13] MEDS: PANTOPRAZOLE 40 MG TABLET.DR. PO SCH ×2 (07:30→08:35)
[2018-08-13] MEDS: IPRATRPIUM/ALBUTEROL 0.5/2.5MG 3 ML NEBU. NEB SCH ×2 (07:36→11:55)
[2018-08-13] MEDS: BUDESONIDE 0.5 MG/2 ML NEBU. NEB SCH (07:37)
[2018-08-13] MEDS ORDERED: diazePAM 5 MG TABLET PO SCH (08:00)
[2018-08-13] MEDS: MULTIVITAMIN with MINERAL TABLET. PO SCH ×2 (08:39→08:41)
[2018-08-13] MEDS: CALCIUM CARBONATE 500 MG TABLET PO SCH ×2 (08:39→08:41)
--- NOTE | 2018-08-13 08:40 | PDOC ---
PROGRESS NOTES Subjective Subjective Patient reports chest pain resolved yesterday in ER and has not recurred. Denies cough or unusual SOA. Objective Objective Vital Signs Date Time Temp Pulse Resp B/P (MAP) Pulse Ox O2 Delivery O2 Flow Rate FiO2 08/13/18 07:39 100 Nasal Cannula 2.0 08/13/18 07:00 98.5 78 18 169/57 (94) 98.5 Intake and Output 08/13/18 06:59 Output Total 600 ml Balance -600 ml Output Urine Total 600 ml # Voids 6 Physical Exam Abdomen: Normal bowel sounds, Soft, No tenderness (aorta palpable), Other Heart: Regular rate, No murmurs Extremities: No edema General: Alert, Oriented X3, No acute distress Lungs: Other (BS moderately decreased throughout, no wheezes heard, no cough during exam) Assessment Assessment Problems Medical Problems: (1) Chest pain Status: Acute (2) HTN (hypertension) Status: Acute Plan Plan of Care 1. Chest pain - resolved. Troponin negative x3. To have Echo today. Should be able to discharge later today if Cardiology in agreement. 2. hypertensive urgency - BP markedly elevated in ER but much improved. Agree with increase in Losartan to 100mg. May need the Norvasc also, will follow this as outpatient. 3. chronic respiratory failure with COPD and pulmonary HTN - appears stable. CXR clear, sats good on her usual 2L per NC. 4. chronic anxiety - patient feels this contributed to her symptoms yesterday. Usually controlled, continue her usual medications for this. 5. glucose intolerance - diet-controlled. 6. hypothyroidism - stable, continue replacement. Comment Review of Relevant I have reviewed the following items elliott (where applicable) has been applied. Labs Laboratory Tests Test 08/12/18 11:25 08/12/18 13:34 08/12/18 19:25 08/13/18 01:05 White Blood Count 6.9 x10^3/uL (4.0-11.0) Red Blood Count 4.19 x10^6/uL (3.50-5.40) Hemoglobin 12.1 g/dL (12.0-15.5) Hematocrit 37.7 % (36.0-47.0) Mean Corpuscular Volume 90 fL (79-100) Mean Corpuscular Hemoglobin 29 pg (25-35) Mean Corpuscular Hemoglobin Concent 32 g/dL (31-37) Red Cell Distribution Width 16.5 % (11.5-14.5) Platelet Count 185 x10^3/uL (140-400) Neutrophils (%) (Auto) 73 % (31-73) Lymphocytes (%) (Auto) 24 % (24-48) Monocytes (%) (Auto) 3 % (0-9) Eosinophils (%) (Auto) 0 % (0-3) Basophils (%) (Auto) 1 % (0-3) Neutrophils # (Auto) 5.0 x10^3uL (1.8-7.7) Lymphocytes # (Auto) 1.7 x10^3/uL (1.0-4.8) Monocytes # (Auto) 0.2 x10^3/uL (0.0-1.1) Eosinophils # (Auto) 0.0 x10^3/uL (0.0-0.7) Basophils # (Auto) 0.1 x10^3/uL (0.0-0.2) Prothrombin Time 14.4 SEC (11.7-14.0) Prothromb Time International Ratio 1.2 (0.8-1.1) Activated Partial Thromboplast Time 24 SEC (24-38) Sodium Level 138 mmol/L (136-145) Potassium Level 4.0 mmol/L (3.5-5.1) Chloride Level 99 mmol/L (98-107) Carbon Dioxide Level 31 mmol/L (21-32) Anion Gap 8 (6-14) Blood Urea Nitrogen 18 mg/dL (7-20) Creatinine 1.0 mg/dL (0.6-1.0) Estimated GFR (Cockcroft-Gault) 64.9 BUN/Creatinine Ratio 18 (6-20) Glucose Level 114 mg/dL (70-99) Calcium Level 9.4 mg/dL (8.5-10.1) Magnesium Level 2.1 mg/dL (1.8-2.4) Total Bilirubin 0.4 mg/dL (0.2-1.0) Aspartate Amino Transf (AST/SGOT) 26 U/L (15-37) Alanine Aminotransferase (ALT/SGPT) 21 U/L (14-59) Alkaline Phosphatase 70 U/L (46-116) Creatine Kinase 46 U/L (26-192) Creatine Kinase MB (Mass) 0.8 ng/mL (0.0-3.6) Creatine Kinase MB Relative Index % (0-4) Troponin I Quantitative < 0.017 ng/mL (0.000-0.055) < 0.017 ng/mL (0.000-0.055) KM-Hnt-X-Type Natriuretic Peptide 1595 pg/mL (0-449) Total Protein 8.8 g/dL (6.4-8.2) Albumin 3.7 g/dL (3.4-5.0) Albumin/Globulin Ratio 0.7 (1.0-1.7) Lipase 61 U/L (73-393) Urine Collection Type Unknown Urine Color Yellow Urine Clarity Clear Urine pH 6.5 Urine Specific [place] 1.010 Urine Protein Negative mg/dL (NEG-TRACE) Urine Glucose (UA) Negative mg/dL (NEG) Urine Ketones (Stick) Negative mg/dL (NEG) Urine Blood Negative (NEG) Urine Nitrite Negative (NEG) Urine Bilirubin Negative (NEG) Urine Urobilinogen Dipstick 0.2 mg/dL (0.2 mg/dL) Urine Leukocyte Esterase Trace (NEG) Urine RBC 0 /HPF (0-2) Urine WBC 1-4 /HPF (0-4) Urine Squamous Epithelial Cells Few /LPF Urine Transitional Epithelial Cells Few /LPF Urine Bacteria 0 /HPF (0-FEW) Urine Hyaline Casts Moderate /HPF Urine Mucus Mod /LPF Thyroid Stimulating Hormone (TSH) 0.827 uIU/mL (0.358-3.74) Triglycerides Level 147 mg/dL (0-150) Cholesterol Level 181 mg/dL (0-200) LDL Cholesterol, Calculated 106 mg/dL (0-100) VLDL Cholesterol, Calculated 29 mg/dL (0-40) Non-HDL Cholesterol Calculated 135 mg/dL (0-129) HDL Cholesterol 46 mg/dL (40-60) Cholesterol/HDL Ratio 3.9 Test 08/13/18 01:10 Troponin I Quantitative < 0.017 ng/mL (0.000-0.055) Laboratory Tests Test 08/12/18 11:25 08/12/18 13:34 08/12/18 19:25 08/13/18 01:05 White Blood Count 6.9 x10^3/uL (4.0-11.0) Red Blood Count 4.19 x10^6/uL (3.50-5.40) Hemoglobin 12.1 g/dL (12.0-15.5) Hematocrit 37.7 % (36.0-47.0) Mean Corpuscular Volume 90 fL (79-100) Mean Corpuscular Hemoglobin 29 pg (25-35) Mean Corpuscular Hemoglobin Concent 32 g/dL (31-37) Red Cell Distribution Width 16.5 % (11.5-14.5) Platelet Count 185 x10^3/uL (140-400) Neutrophils (%) (Auto) 73 % (31-73) Lymphocytes (%) (Auto) 24 % (24-48) Monocytes (%) (Auto) 3 % (0-9) Eosinophils (%) (Auto) 0 % (0-3) Basophils (%) (Auto) 1 % (0-3) Neutrophils # (Auto) 5.0 x10^3uL (1.8-7.7) Lymphocytes # (Auto) 1.7 x10^3/uL (1.0-4.8) Monocytes # (Auto) 0.2 x10^3/uL (0.0-1.1) Eosinophils # (Auto) 0.0 x10^3/uL (0.0-0.7) Basophils # (Auto) 0.1 x10^3/uL (0.0-0.2) Prothrombin Time 14.4 SEC (11.7-14.0) Prothromb Time International Ratio 1.2 (0.8-1.1) Activated Partial Thromboplast Time 24 SEC (24-38) Sodium Level 138 mmol/L (136-145) Potassium Level 4.0 mmol/L (3.5-5.1) Chloride Level 99 mmol/L (98-107) Carbon Dioxide Level 31 mmol/L (21-32) Anion Gap 8 (6-14) Blood Urea Nitrogen 18 mg/dL (7-20) Creatinine 1.0 mg/dL (0.6-1.0) Estimated GFR (Cockcroft-Gault) 64.9 BUN/Creatinine Ratio 18 (6-20) Glucose Level 114 mg/dL (70-99) Calcium Level 9.4 mg/dL (8.5-10.1) Magnesium Level 2.1 mg/dL (1.8-2.4) Total Bilirubin 0.4 mg/dL (0.2-1.0) Aspartate Amino Transf (AST/SGOT) 26 U/L (15-37) Alanine Aminotransferase (ALT/SGPT) 21 U/L (14-59) Alkaline Phosphatase 70 U/L (46-116) Creatine Kinase 46 U/L (26-192) Creatine Kinase MB (Mass) 0.8 ng/mL (0.0-3.6) Creatine Kinase MB Relative Index % (0-4) Troponin I Quantitative < 0.017 ng/mL (0.000-0.055) < 0.017 ng/mL (0.000-0.055) QS-Kke-K-Type Natriuretic Peptide 1595 pg/mL (0-449) Total Protein 8.8 g/dL (6.4-8.2) Albumin 3.7 g/dL (3.4-5.0) Albumin/Globulin Ratio 0.7 (1.0-1.7) Lipase 61 U/L (73-393) Urine Collection Type Unknown Urine Color Yellow Urine Clarity Clear Urine pH 6.5 Urine Specific [place] 1.010 Urine Protein Negative mg/dL (NEG-TRACE) Urine Glucose (UA) Negative mg/dL (NEG) Urine Ketones (Stick) Negative mg/dL (NEG) Urine Blood Negative (NEG) Urine Nitrite Negative (NEG) Urine Bilirubin Negative (NEG) Urine Urobilinogen Dipstick 0.2 mg/dL (0.2 mg/dL) Urine Leukocyte Esterase Trace (NEG) Urine RBC 0 /HPF (0-2) Urine WBC 1-4 /HPF (0-4) Urine Squamous Epithelial Cells Few /LPF Urine Transitional Epithelial Cells Few /LPF Urine Bacteria 0 /HPF (0-FEW) Urine Hyaline Casts Moderate /HPF Urine Mucus Mod /LPF Thyroid Stimulating Hormone (TSH) 0.827 uIU/mL (0.358-3.74) Triglycerides Level 147 mg/dL (0-150) Cholesterol Level 181 mg/dL (0-200) LDL Cholesterol, Calculated 106 mg/dL (0-100) VLDL Cholesterol, Calculated 29 mg/dL (0-40) Non-HDL Cholesterol Calculated 135 mg/dL (0-129) HDL Cholesterol 46 mg/dL (40-60) Cholesterol/HDL Ratio 3.9 Test 08/13/18 01:10 Troponin I Quantitative < 0.017 ng/mL (0.000-0.055) Medications Current Medications Aspirin (Enrrique Aspirin) 325 mg 1X ONCE PO Last administered on 08/12/18at 12:01 ; Start 08/12/18 at 11:45; Stop 08/12/18 at 11:46; Status DC Nitroglycerin (Nitrostat) 0.4 mg PRN Q5MIN PRN SL CP RATING > 1/10 Last administered on 08/12/18at 12:03; Start 08/12/18 at 11:30; Stop 08/13/18 at 11:29 Acetaminophen (Tylenol) 650 mg 1X ONCE PO Last administered on 08/12/18at 12:28 ; Start 08/12/18 at 12:15; Stop 08/12/18 at 12:18; Status DC Nitroglycerin (Nitro-Bid Oint) 1 inch 1X ONCE TP Last administered on at 13:18; Start 08/12/18 at 13:15; Stop 08/12/18 at 13:16; Status DC Ondansetron HCl (Zofran) 4 mg PRN Q8HRS PRN IV NAUSEA/VOMITING; Start 08/12/18 at 13:30; Stop 08/13/18 at 13:29 Pharmacy Consult (C.diff Med Screen By Rx) 1 each 1X ONCE [facility] ; Start 08/12/18 at 16:30; Stop 08/12/18 at 16:32; Status DC Albuterol Sulfate (Ventolin Neb Soln) 2 mg PRN Q4HRS PRN INH SHORTNESS OF BREATH; Start 08/12/18 at 17:15 Calcium Carbonate/ Glycine (Oscal) 500 mg DAILY PO ; Start 08/13/18 at 09:00 Diazepam (Valium) 5 mg DAILY08 PO ; Start 08/13/18 at 08:00 Losartan Potassium (Cozaar) 50 mg DAILY PO ; Start 08/13/18 at 09:00; Stop 08/13 at 09:00; Status DC Benzonatate (Tessalon Perle) 200 mg PRN TID PRN PO COUGH; Start 08/12/18 at 21: 00 Budesonide (Pulmicort) 0.5 mg RTBID NEB Last administered on 08/13/18at 07:37; Start 08/12/18 at 20:00 Levothyroxine Sodium (Synthroid) 50 mcg DAILY06 PO Last administered on at 06:42; Start 08/13/18 at 06:00 Multivitamins (Thera M Plus) 1 tab DAILY PO ; Start 08/13/18 at 09:00 Pantoprazole Sodium (Protonix) 40 mg DAILYAC PO ; Start 08/13/18 at 07:30 Sertraline HCl (Zoloft) 100 mg DAILY PO ; Start 08/13/18 at 09:00 Albuterol/ Ipratropium (Duoneb) 3 ml RTQID NEB Last administered on 08/13/18at 07:36; Start 08/12/18 at 20:00 Losartan Potassium (Cozaar) 50 mg 1X ONCE PO Last administered on 08/12/18at 17 :42; Start 08/12/18 at 17:15; Stop 08/12/18 at 17:18; Status DC Amlodipine Besylate (Norvasc) 5 mg 1X ONCE PO Last administered on 08/12/18at 17:42; Start 08/12/18 at 17:15; Stop 08/12/18 at 17:18; Status DC Amlodipine Besylate (Norvasc) 5 mg DAILY PO ; Start 08/13/18 at 09:00 Nitroglycerin (Nitro-Bid Oint) 2 inch 1X ONCE TP ; Start 08/12/18 at 17:15; Stop 08/12/18 at 17:18; Status DC Hydralazine HCl (Apresoline Inj) 10 mg PRN Q4HRS PRN IVP ELEVATED BP, SEE COMMENTS; Start 08/12/18 at 18:00 Losartan Potassium (Cozaar) 100 mg DAILY PO ; Start 08/13/18 at 09:00 Active Scripts Active Prednisone 20 Mg Tablet 20 Mg PO DAILY 3 tablets daily for 3 days Then 2 tablets daily for days 4 through 6 Then 1 tablet daily for days 6 through 9 Then one half tablet daily for days 10 TRHOUGH 13 Symbicort 80-4.5 Mcg Inhaler (Budesonide/Formoterol Fumarate) 10.2 Gm Hfa.aer.ad 2 Puff IH BID Ventolin Hfa Inhaler (Albuterol Sulfate) 18 Gm Hfa.aer.ad 2-4 Puff INH PRN Q4HRS PRN Reported Meloxicam 7.5 Mg Tablet 1 Tab PO DAILY Prilosec Otc (Omeprazole Magnesium) 20 Mg Tablet.dr 20 Mg PO DAILY06 Benzonatate 200 Mg Capsule 1 Cap PO PRN TID Calcium (Calcium Carbonate) 500 Mg Tablet 500 Mg PO Multivitamins (Multivitamin) 1 Each Tablet 1 Tab PO DAILY Losartan Potassium 50 Mg Tablet 50 Mg PO DAILY Proair Hfa Inhaler (Albuterol Sulfate) 8.5 Gm Hfa.aer.ad 1 Puff INH PRN Q4HRS PRN Spiriva (Tiotropium [place]) 18 Mcg Cap.w.dev 2 Inh IH DAILY08 Valium (Diazepam) 5 Mg Tablet 5 Mg PO DAILY08 Zoloft (Sertraline Hcl) 100 Mg Tablet 100 Mg PO DAILY08 Synthroid (Levothyroxine Sodium) 50 Mcg Tablet 50 Mcg PO DAILY06 Vitals/I & O Vital Sign - Last 24 Hours 08/12/18 08/12/18 08/12/18 08/12/18 11:08 11:43 11:54 12:03 Temp 98.3 98.3 Pulse 85 80 74 77 Resp B/P (MAP) 219/93 (135) 215/87 (129) 198/84 (122) 198/84 Pulse Ox 100 98 99 O2 Delivery Nasal Cannula Nasal Cannula Nasal Cannula O2 Flow Rate 2.0 2.0 2.0 08/12/18 08/12/18 08/12/18 08/12/18 12:05 12:15 12:35 13:05 Pulse 75 78 78 72 Resp 20 B/P (MAP) 187/62 (103) 163/76 (105) 197/88 (124) 184/81 (115) Pulse Ox 100 99 100 99 O2 Delivery Nasal Cannula Nasal Cannula Nasal Cannula Nasal Cannula O2 Flow Rate 2.0 2.0 2.0 2.0 08/12/18 08/12/18 08/12/18 08/12/18 13:18 13:38 13:53 14:58 Temp 99.0 99.0 Pulse 74 94 72 79 Resp 18 B/P (MAP) 182/81 200/84 (122) 171/65 (100) 176/70 (105) Pulse Ox 97 99 99 O2 Delivery Nasal Cannula Nasal Cannula Nasal Cannula O2 Flow Rate 2.0 2.0 2.0 08/12/18 08/12/18 08/12/18 08/12/18 16:23 17:42 17:42 19:30 Temp 98.2 98.2 Pulse 88 79 82 Resp 18 B/P (MAP) 181/74 181/74 161/70 (100) Pulse Ox 100 O2 Delivery Nasal Cannula Nasal Cannula O2 Flow Rate 2.0 2.0 08/12/18 08/12/18 08/12/18 08/13/18 20:00 20:33 22:24 03:11 Temp 98.2 98.0 98.2 98.0 Pulse 82 73 Resp 18 18 B/P (MAP) 161/67 (98) 154/67 (96) Pulse Ox 100 100 100 O2 Delivery Nasal Cannula Nasal Cannula Nasal Cannula Nasal Cannula O2 Flow Rate 2.0 2.0 2.0 2.0 08/13/18 08/13/18 07:00 07:39 Temp 98.5 98.5 Pulse 78 Resp 18 B/P (MAP) 169/57 (94) Pulse Ox 100 100 O2 Delivery Nasal Cannula Nasal Cannula O2 Flow Rate 2.0 2.0 Intake and Output 08/12/18 08/12/18 08/13/18 14:59 22:59 06:59 Output Total 600 ml Balance -600 ml COSMO CASTRO MD Aug 13, 2018 08:40
[2018-08-13] MEDS ORDERED: PRED20TA PO (08:45)
[2018-08-13] MEDS ORDERED: MELO7.5T29 PO (08:45)
[2018-08-13] MEDS ORDERED: SERTRALINE 50 MG TABLET. PO SCH (09:00)
[2018-08-13] MEDS ORDERED: amLODIPine BESYLATE 5 MG TABLET PO SCH (09:00)
[2018-08-13] MEDS ORDERED: LOSARTAN POTASSIUM 50 MG TABLET. PO SCH ×2 (09:00)
--- NOTE | 2018-08-13 10:29 | RAD ---
Ultrasound evaluation of the abdominal aorta 08/13/2018 INDICATION: Pulsatile mass COMPARISON STUDY: None available discussion: Ultrasound evaluation of the abdominal aorta was performed. Static images are submitted to PACS. FINDINGS: Maximal diameter of the proximal aorta: 2.2 cm Maximal diameter of the mid abdominal aorta 1.8 cm Maximal diameter of the distal abdominal aorta 1.4 cm Diffuse atherosclerotic plaquing is seen. No aneurysm is identified. Visualized right common iliac artery is normal in caliber proximally 8 mm. Visualized left common iliac artery is slightly small in caliber measuring approximately 7 mm. IMPRESSION: No sonographic evidence of abdominal aortic aneurysm is identified Electronically signed by: Colby David MD (08/13/2018 10:26 AM) [id number]
--- NOTE | 2018-08-13 10:31 | HP ---
ADMIT DATE: 08/12/2018 CHIEF COMPLAINT: Chest pain. HISTORY OF PRESENT ILLNESS: The patient is a 77-year-old female with a history of chronic respiratory failure due to COPD. She presented to the Emergency Room with the above complaint. She was actually seen in the Emergency Room several days previously. At that time, her complaints had been headache and some shortness of air. She apparently was not having chest pain at that time. She was diagnosed with a COPD exacerbation and discharged home on a prednisone taper and some meloxicam. The patient had apparently been taking these medications. Her headache and shortness of breath had improved; however, on the day of admission, she developed chest pain. The pain was substernal and did not radiate. It was accompanied by some diaphoresis and possibly some shortness of air. She called our office and was advised to go to the Emergency Room, which she did. Initial evaluation there showed her to have a significantly elevated blood pressure of over 200 systolic. Initial troponin was negative, nitro paste was applied, and she was admitted for further care. PAST MEDICAL HISTORY: Chronic respiratory failure due to COPD, pulmonary hypertension, hypertension, hypothyroidism, chronic anxiety, glucose intolerance, GERD. PAST SURGICAL HISTORY: Partial thyroidectomy, partial hysterectomy for cervical cancer, cholecystectomy. ALLERGIES: THE PATIENT IS ALLERGIC OR INTOLERANT TO CODEINE. HOME MEDICATIONS: Albuterol p.r.n., Symbicort 80/4.5 two puffs daily, Spiriva 2 puffs daily, calcium 500 mg daily, Valium 5 mg daily, levothyroxine 50 mcg daily, losartan 50 mg daily, omeprazole 20 mg daily, sertraline 100 mg daily. The patient was also taking the prednisone taper from the Emergency Room. FAMILY HISTORY: Noncontributory. SOCIAL HISTORY: The patient is and lives at home with her . She has a long smoking history, but quit smoking cigarettes in 2003. She does not drink alcohol to excess. REVIEW OF SYSTEMS: The patient denies fever or chills. She denies other episodes of chest pain or palpitations. She denies shortness of breath or unusual dyspnea on exertion at this time and feels her breathing is about at her baseline. She denies abdominal pain, nausea, vomiting or problems with her bowels. She denies lower extremity edema. She has been compliant with all of her medications, taking them daily. She does have chronic anxiety, and this may have been worsened recently due to the upcoming one year anniversary of her son's . PHYSICAL EXAMINATION: GENERAL: The patient is alert and oriented x 3, resting comfortably in bed in no acute distress. HEENT: PERRL, EOMI, sclerae clear. Oropharynx: Mucous membranes moist. NECK: Supple, without lymphadenopathy. CHEST: Breath sounds are moderately decreased throughout, but otherwise clear to auscultation. No wheezes heard. No cough during exam. CARDIOVASCULAR: Regular rhythm without murmur. ABDOMEN: Soft, nontender, normoactive bowel sounds are present. The aorta is palpable in the epigastric area. EXTREMITIES: Without edema. ASSESSMENT AND PLAN: 1. Chest pain. This resolved yesterday and has not recurred. Three troponins are all within normal limits. The patient is to have an echocardiogram today. She may be able to be discharged home later today if Cardiology is in agreement. 2. Hypertensive urgency. The patient's blood pressure was markedly elevated in the Emergency Room, but is much improved. Her losartan has been increased to 100 mg. We will give her blood pressure medicines this morning and follow her response to this. Cardiology has also ordered amlodipine 5 mg daily. 3. Chronic respiratory failure with chronic obstructive pulmonary disease and pulmonary hypertension. This appears stable. Her chest x-ray is clear. Her oxygen saturations are good on her usual oxygen per nasal cannula. 4. Chronic anxiety. The patient feels that this may have contributed to her symptoms yesterday. Her anxiety is usually controlled with her home medications, and we will continue these. 5. Glucose intolerance. This is diet controlled for her. 6. Hypothyroidism. This is stable, and her TSH is good. We will continue her usual dose of levothyroxine. COSMO CASTRO MD DR: ALBERT/harman JOB#: [id number] / [id number] PEDRO LUIS
[2018-08-13 11:16] VITALS: BP 119/61
--- NOTE | 2018-08-13 11:53 | CARD ---
MR#: [id number] Date of Study: 08/13/2018 Ordering Physician: WILFREDO ARANGO, Referring Physician: COSMO CASTRO Tech: Avril Trivedipoloamado APPROVED REPORT EXAM: Two-dimensional and M-mode echocardiogram with Doppler and color Doppler. Other Information Quality : FairHR: 80bpm Technically limited study due to body habitus. INDICATION COPD Chest Pain RISK FACTORS Hypertension Pre-diabetic 2D DIMENSIONS RVDd1.5 (2.9-3.5cm)Left Atrium(2D)2.1 (1.6-4.0cm) IVSd0.7 (0.7-1.1cm)Aortic Root(2D)2.7 (2.0-3.7cm) LVDd4.0 (3.9-5.9cm)LVOT Diameter1.8 (1.8-2.4cm) PWd0.9 (0.7-1.1cm)LVDs2.6 (2.5-4.0cm) FS (%) 34.7 %SV44.5 ml LVEF(%)64.5 (>50%) Aortic Valve AoV Peak Eric.100.8cm/sAoV VTI24.0cm AO Peak GR.4.1mmHgLVOT Peak Eric.76.9cm/s LVOT VTI 14.78cmAO Mean GR.2mmHg HARVINDER (VMAX)1.10tj0ALW (VTI)1.61cm2 Mitral Valve MV E Fnucmbgu63.5cm/sMV DECEL ROXW794zp MV A Vrvkwypn401.5cm/sMV HCO857cy E/A Ratio0.8MVA (PHT)2.21cm2 TDI E/Lateral E'11.7E/Medial E'11.3 Pulmonary Valve PV Peak Evzbyypw488.2cm/sPV Peak Grad.4mmHg Tricuspid Valve TR P. Osozgvzl075db/sRAP [id number] TR Peak Gr.87ywBlRODP92dyPb Pulmonary Vein S1 Tsoqbzle18.2cm/sD2 Bxrxkxib18.1cm/s PVa [id number] LEFT VENTRICLE The left ventricle is normal size. There is normal left ventricular wall thickness. The left ventricu lar systolic function is normal and the ejection fraction is within normal range. The Ejection Fracti on is >55%. There is grossly normal LV function. Technically difficult images. Transmitral Doppler fl ow pattern is Grade I-abnormal relaxation pattern. RIGHT VENTRICLE The right ventricle is borderline dilated. There is normal right ventricular wall thickness. The righ t ventricular systolic function is normal. ATRIA The left atrium size is normal. The right atrium size is normal. The interatrial septum is intact wit h no evidence for an atrial septal defect or patent foramen ovale as noted on 2-D or Doppler imaging. AORTIC VALVE The aortic valve is not well visualized. Doppler and Color Flow revealed no significant aortic regurg itation. There is no significant aortic valvular stenosis. MITRAL VALVE Mitral valve is calcified, appears mildly rheumatic in appearance. There is no evidence of mitral ash ve prolapse. There is no mitral valve stenosis. Doppler and Color-flow revealed trace mitral regurgit ation. TRICUSPID VALVE The tricuspid valve is normal in structure and function. Doppler and Color Flow revealed trace tricus pid regurgitation with an estimated PAP of 27 mmHg. There is no tricuspid valve stenosis. PULMONIC VALVE The pulmonic valve is not well visualized. Doppler and Color Flow revealed no pulmonic valvular regur gitation. GREAT VESSELS The aortic root is normal in size. The IVC is normal in size and collapses >50% with inspiration. PERICARDIAL EFFUSION There is a trace pericardial effusion. Critical Notification Critical Value: No <Conclusion> The left ventricular systolic function is normal and the ejection fraction is within normal range. Th e Ejection Fraction is >55%. There is grossly normal LV function. Technically difficult images. Signed by : Brendan Morgan, Electronically Approved : 08/13/2018 11:53:07
[2018-08-13] MEDS ORDERED: LOSA-73 PO (12:43)
--- NOTE | 2018-08-13 12:50 | PDOC ---
CARDIO Progress Notes Date and Time Date of Service 08/13/18 Time of Evaluation 1210 Subjective Subjective: No Chest Pain, No shortness of breath, No Palpitations Vitals Vitals Vital Signs Date Time Temp Pulse Resp B/P (MAP) Pulse Ox O2 Delivery O2 Flow Rate FiO2 08/13/18 11:57 Nasal Cannula 2.0 08/13/18 11:16 98.0 92 16 119/61 (80) 100 98.0 Weight Weight [ ] Input and Output Intake and Output Intake and Output 08/13/18 06:59 Output Total 600 ml Balance -600 ml Output Urine Total 600 ml # Voids 6 Laboratory Labs Laboratory Tests Test 08/12/18 13:34 08/12/18 19:25 08/13/18 01:05 08/13/18 01:10 Urine Collection Type Unknown Urine Color Yellow Urine Clarity Clear Urine pH 6.5 Urine Specific [place] 1.010 Urine Protein Negative mg/dL (NEG-TRACE) Urine Glucose (UA) Negative mg/dL (NEG) Urine Ketones (Stick) Negative mg/dL (NEG) Urine Blood Negative (NEG) Urine Nitrite Negative (NEG) Urine Bilirubin Negative (NEG) Urine Urobilinogen Dipstick 0.2 mg/dL (0.2 mg/dL) Urine Leukocyte Esterase Trace (NEG) Urine RBC 0 /HPF (0-2) Urine WBC 1-4 /HPF (0-4) Urine Squamous Epithelial Cells Few /LPF Urine Transitional Epithelial Cells Few /LPF Urine Bacteria 0 /HPF (0-FEW) Urine Hyaline Casts Moderate /HPF Urine Mucus Mod /LPF Troponin I Quantitative < 0.017 ng/mL (0.000-0.055) < 0.017 ng/mL (0.000-0.055) Thyroid Stimulating Hormone (TSH) 0.827 uIU/mL (0.358-3.74) Triglycerides Level 147 mg/dL (0-150) Cholesterol Level 181 mg/dL (0-200) LDL Cholesterol, Calculated 106 mg/dL (0-100) VLDL Cholesterol, Calculated 29 mg/dL (0-40) Non-HDL Cholesterol Calculated 135 mg/dL (0-129) HDL Cholesterol 46 mg/dL (40-60) Cholesterol/HDL Ratio 3.9 Physical Exam HEENT: Neck Supple W Full Motion Chest: Symmetric LUNGS: Clear to Auscultation Heart: S1S2, RRR (SR/ST) Abdomen: Soft N/T Extremities: No Edema Neurology: alert, oriented, follow commands Assessment Assessment 1. Atypical CP; AMI ruled out. Resolved.Echo showed preserved LV systolic function with an EF of 55% 2. COPD with O2 dependency 3. Suspect secondary pulmonary HTN 4. Accelerated HTN; labile Recommendations Home antiHTN therapy resumed. Monitor to assess need for therapy titration Consider outpatient ischemic evaluation if CP recurrent May discharge from a CV standpoint and f/u PRN KATELIN BARTON APRN Aug 13, 2018 12:50
--- NOTE | 2018-08-13 15:12 | NUR ---
Discharge Note: MAN LAMBERT Discharge instructions and discharge home medications reviewed with Patient and a copy given. All questions have been answered and understanding verbalized.
--- NOTE | 2018-08-14 10:04 | DS ---
DATE OF DISCHARGE: 08/13/2018 CHIEF COMPLAINT: Chest pain. HISTORY OF PRESENT ILLNESS: The patient is a 77-year-old female with a history of chronic respiratory failure due to COPD. She presented to the Emergency Room with the above complaint. She was actually seen in the Emergency Room several days previously. At that time, her complaints had been headache and some shortness of air. She apparently was not having chest pain at that time. She was diagnosed with a COPD exacerbation and discharged home on a prednisone taper and some meloxicam. The patient had been taking these medications. Her headache and shortness of breath had improved. However, on the day of admission, she developed chest pain. The pain was substernal and did not radiate. It was accompanied by some diaphoresis and possibly some shortness of air. She called our office and was advised to go to the Emergency Room, which she did. Initial evaluation there showed her to have a significantly elevated blood pressure of over 200 systolic. Initial troponin was negative. Nitro paste was applied and she was admitted for further care. HOSPITAL COURSE: The patient's chest pain resolved in the Emergency Room and did not reoccur. Troponin was within normal limits on 3 different occasions. She was seen in consultation by Cardiology. Per their recommendation, she had an echocardiogram. This was very similar to one that had been done 2 years ago. It showed a preserved ejection fraction with normal left ventricular systolic function, ejection fraction over 55%. There was some mild diastolic dysfunction seen, pulmonary hypertension was also present. Cardiology did not recommend any further workup at that time. Her elevated blood pressure was treated with several different medications with good improvement. Her usual losartan 50 mg was increased to 100 mg daily. The patient has chronic anxiety and reported that she felt that feelings of anxiety had probably contributed to her elevated blood pressure and even some of the chest pain. The patient felt much better on 08/13/2018 and was discharged home. FINAL DIAGNOSES: 1. Hypertensive urgency. 2. Chronic respiratory failure with chronic obstructive pulmonary disease and pulmonary hypertension. 3. Chronic anxiety. 4. Glucose intolerance. 5. Hypothyroidism. DISCHARGE MEDICATIONS: All remain the same as at admission except that the losartan was changed from 50 mg to 100 mg daily. FOLLOWUP: Followup is with Dr. Marte within 2 weeks. COSMO MARTE MD DR: ALBERT/harman JOB#: [id number] / [id number] PEDRO LUIS
== END 2018-08-13 15:25 | disposition home or self-care (01) | DRG 305 ==
LOC: ER 11:05 → 2 NORTH 13:22
PROVIDERS: ADMIT Family Medicine; ATTEND Family Medicine
DX: I16.0 Hypertensive urgency (principal); J96.10 Chronic respiratory failure, unspecified whether with hypoxia or hypercapnia; I10 Essential (primary) hypertension; E89.0 Postprocedural hypothyroidism; K21.9 Gastro-esophageal reflux disease without esophagitis; F41.9 Anxiety disorder, unspecified; E74.39 Other disorders of intestinal carbohydrate absorption; I27.20 Pulmonary hypertension, unspecified; J44.9 Chronic obstructive pulmonary disease, unspecified; Z90.711 Acquired absence of uterus with remaining cervical stump; Z99.81 Dependence on supplemental oxygen; Z85.41 Personal history of malignant neoplasm of cervix uteri; Z90.49 Acquired absence of other specified parts of digestive tract; Z79.899 Other long term (current) drug therapy; Z87.891 Personal history of nicotine dependence; Z82.49 Family history of ischemic heart disease and other diseases of the circulatory system
CPT/HCPCS: 36415; 71045; 80053; 80061; 81001; 82550; 82553; 83690; 83735; 83880; 84443; 84484; 85025; 85610; 85730; 87086; 93005; 93306; 93978; 94640; 94760; J7620; J7626; 99285-25

== ENCOUNTER → 2019-03-11 | Outpatient (CLI) | payer MEDICARE, OTHER ==
[~2019-03-11] MED LIST changes: +OMEP20TA63 PO
--- NOTE | 2019-03-12 11:18 | RAD ---
DATE: 03/11/2019 EXAM: MAMMO ARIANE SCREENING BILATERAL HISTORY: Routine screening COMPARISON: 01/12/2016, 01/10/2015, 02/12/2017, 02/16/2018 This study was interpreted with the benefit of Computerized Aided Detection (CAD). Breast Density: HETERO The breast parenchyma is heterogenously dense, which could reduce sensitivity of mammography. Breast parenchyma level C. FINDINGS: Benign calcifications are present. No masses or distortion. IMPRESSION: Stable BI-RADS CATEGORY: RECOMMENDED FOLLOW-UP: 12M 12 MONTH FOLLOW-UP PQRS compliance statement: Patient information was entered into a reminder system with a target due date for the next mammogram. Mammography is a sensitive method for finding small breast cancers, but it does not detect them all and is not a substitute for careful clinical examination. A negative mammogram does not negate a clinically suspicious finding and should not result in delay in biopsying a clinically suspicious abnormality. "Our facility is accredited by the [employer] Mammography Program." PEDRO LUIS
== END | disposition home or self-care (01) ==
LOC: MAMMO 09:25
PROVIDERS: ATTEND Family Medicine
DX: Z12.31 Encounter for screening mammogram for malignant neoplasm of breast (principal); N64.89 Other specified disorders of breast
CPT/HCPCS: 77063; 77067

== ENCOUNTER 2019-08-15 07:22 | Inpatient (IN) | payer MEDICARE, OTHER ==
[~2019-08-15] VITALS: Ht 152.4 cm; Wt 39.9 kg
[2019-08-15] VITALS (14 sets, daily range): BP systolic 147–183; BP diastolic 54–86
[~2019-08-15 07:22] MED LIST changes: +ACET325T9 PO; +AMOX500C PO; +ASPI-612 PO; +BUSP5TAB PO; +CEFD300C PO; +DOCU-153 PO; +GUAI100L12 PO; +IPRA3AMP29 NEB; +LACT1CAP19 PO; +LOSA100T14 PO; +MAG30ORA2 PO; +MECL-75 PO; -MECL25TA3 PO; +METO25TA4 PO; +SERT100T8 PO
[2019-08-15] MEDS ORDERED: IPRATRPIUM/ALBUTEROL 0.5/2.5MG 3 ML NEBU. NEB ONE (07:30)
[2019-08-15] MEDS ORDERED: methylPREDNISolone SOD SUCC PF 125 MG/2 ML VIAL. IV ONE (07:30)
[2019-08-15] MEDS ORDERED: PIPERACILLIN/TAZOBACTAM 3.375 GM in IV NORMAL SALINE 50ML 50 ML IV ONE (07:30)
[2019-08-15] MEDS ORDERED: IV NORMAL SALINE 1000ML BAG 1,000 ML IV ONE ×2 (07:30→09:30)
--- NOTE | 2019-08-15 07:35 | PHYS DOC ---
Past Medical History Past Medical History: COPD, Hypertension, Other Additional Past Medical Histor: borderline diabetes Past Surgical History: Cholecystectomy, Hysterectomy Additional Past Surgical Histo: thyroidectomy Smoking Status: Former Smoker Alcohol Use: None Drug Use: None Adult General HPI HPI 78-year-old female with significant history of COPD on 2L, CHF, anemia, hypertension, who p/w fever and SOA from [place]. Patient states she just feels generally unwell. Reportedly hypoxic on O2 prior to arrival with mild tachycardia. Patient is unable to provide much ancillary Hx. However, review of records show recent admission earlier this month for the management of COPD, acute on chronic respiratory failure, healthcare associated pneumonia, treated with IV Zyvox and Zosyn. Discharged to nursing facility on PO cefdinir. Review of Systems Review of Systems General: Reports fever. Eyes: No blurred vision, diplopia. ENT: No nasal congestion, sore throat. CV: No chest pain, edema. Resp: Reports shortness of breath, cough. GI: No abdominal pain, nausea, vomiting. : No dysuria, hematuria. Neuro: No headache, dizziness. MSK: No myalgia, arthralgia. Skin: No acute rash, lesion. Current Medications Current Medications Current Medications Medications (Trade) Dose Ordered Sig/Celia Start Time Stop Time Status Last Admin Dose Admin Albuterol/ Ipratropium (Duoneb) 3 ml 1X ONCE 08/15/19 07:30 08/15/19 07:34 DC 08/15/19 08:00 3 ML Dextrose (Dextrose 50%-Water Syringe) 25 gm STK-MED ONCE 08/15/19 09:14 08/15/19 09:15 DC Linezolid/Dextrose 300 ml @ 300 mls/hr 1X ONCE 08/15/19 09:00 08/15/19 09:59 Methylprednisolone Sodium Succinate (SOLU-Medrol 125MG VIAL) 125 mg 1X ONCE 08/15/19 07:30 08/15/19 07:34 DC 08/15/19 08:26 125 MG Piperacillin Sod/ Tazobactam Sod 3.375 gm/Sodium Chloride 50 ml @ 100 mls/hr 1X ONCE 08/15/19 07:30 08/15/19 07:59 DC 08/15/19 08:27 100 MLS/HR Sodium Chloride 500 ml @ 500 mls/hr 1X ONCE 08/15/19 09:30 08/15/19 10:29 Allergies Allergies Allergies Coded Allergies Type Severity Reaction Last Updated Verified codeine Adverse Reaction Intermediate vomiting 08/12/18 Yes Physical Exam Physical Exam Gen: NAD. Unwell appearing. Head: NC/AT Eyes: No scleral icterus. No conjunctival injection. ENT: MMM. Posterior OP clear. Neck: Supple. NT. CV: Tachycardic. Peripheral pulses intact. Resp: Diffusely rhonchorous. Tachypneic. Abd: Soft. NT. ND. MSK: No peripheral cyanosis. Trace BLE edema. Neuro: A&Ox3. Awake, responds to questioning appropriately, though somewhat poor historian. Skin: Warm. Dry. Psych: Appropriate mood & affect. Current Patient Data Vital Signs Vital Signs Date Time Temp Pulse Resp B/P (MAP) Pulse Ox O2 Delivery O2 Flow Rate FiO2 08/15/19 08:14 93 Nasal Cannula 6.0 08/15/19 07:34 98.0 110 26 189/87 (121) 98.0 Lab Values Laboratory Tests Test 08/15/19 08:15 White Blood Count 6.7 x10^3/uL (4.0-11.0) Red Blood Count 2.30 x10^6/uL (3.50-5.40) L Hemoglobin 7.0 g/dL (12.0-15.5) *L Hematocrit 22.6 % (36.0-47.0) L Mean Corpuscular Volume 98 fL (79-100) Mean Corpuscular Hemoglobin 30 pg (25-35) Mean Corpuscular Hemoglobin Concent 31 g/dL (31-37) Red Cell Distribution Width 19.5 % (11.5-14.5) H Platelet Count 205 x10^3/uL (140-400) Neutrophils (%) (Auto) 87 % (31-73) H Lymphocytes (%) (Auto) 11 % (24-48) L Monocytes (%) (Auto) 2 % (0-9) Eosinophils (%) (Auto) 0 % (0-3) Basophils (%) (Auto) 0 % (0-3) Neutrophils # (Auto) 5.8 x10^3/uL (1.8-7.7) Lymphocytes # (Auto) 0.7 x10^3/uL (1.0-4.8) L Monocytes # (Auto) 0.1 x10^3/uL (0.0-1.1) Eosinophils # (Auto) 0.0 x10^3/uL (0.0-0.7) Basophils # (Auto) 0.0 x10^3/uL (0.0-0.2) Segmented Neutrophils % 77 % (35-66) H Band Neutrophils % 13 % (0-9) H Lymphocytes % 9 % (24-48) L Monocytes % 1 % (0-10) Nucleated Red Blood Cells 1 Platelet Estimate Adequate (ADEQUATE) Polychromasia Mod Anisocytosis Mod Macrocytosis Slight Ovalocytes Few Schistocytes Occ Sodium Level 139 mmol/L (136-145) Potassium Level 5.0 mmol/L (3.5-5.1) Chloride Level 101 mmol/L (98-107) Carbon Dioxide Level 22 mmol/L (21-32) Anion Gap 16 (6-14) H Blood Urea Nitrogen 40 mg/dL (7-20) H Creatinine 2.2 mg/dL (0.6-1.0) H Estimated GFR (Cockcroft-Gault) 26.1 BUN/Creatinine Ratio 18 (6-20) Glucose Level 32 mg/dL (70-99) *L Lactic Acid Level 8.4 mmol/L (0.4-2.0) *H Calcium Level 8.6 mg/dL (8.5-10.1) Magnesium Level 2.2 mg/dL (1.8-2.4) Total Bilirubin 0.9 mg/dL (0.2-1.0) Aspartate Amino Transferase (AST) 114 U/L (15-37) H Alanine Aminotransferase (ALT) 64 U/L (14-59) H Alkaline Phosphatase 145 U/L (46-116) H Troponin I Quantitative 1.530 ng/mL (0.000-0.055) XQ-Ixh-R-Type Natriuretic Peptide 65337 pg/mL (0-449) H Total Protein 7.6 g/dL (6.4-8.2) Albumin 2.4 g/dL (3.4-5.0) L Albumin/Globulin Ratio 0.5 (1.0-1.7) L Laboratory Tests 08/15/19 08:15 Laboratory Tests 08/15/19 08:15 EKG EKG EKG at 0741. Sinus tachycardia. Heart rate 104. Normal intervals. Diffuse nonspecific STT changes. No STEMI. Interpreted by me. Radiology/Procedures Radiology/Procedures [] Course & Med Decision Making Course & Med Decision Making Pertinent Labs and Imaging studies reviewed. (See chart for details) In summary, 78-year-old female who had a recent admission for healthcare associated pneumonia, who presents for evaluation of fever, dyspnea, and ongoing cough, found to have a multilobar pneumonia on chest x-ray today with anemia 7.0 which may potentially be contributing to her increased work of breathing. Obvious bleeding sequelae. Troponin is elevated at 1.5 with elevated BNP of 25,000. No active chest pain with EKG showing no acute injury pattern. The patient received for previously administered IV antibiotics from her recent admission, including Zosyn and Zyvox. She also receives Medrol and breathing treatments. Her pulse oximetry is around the low 90s on 6 L nasal cannula. The patient is a documented full code. However, and a prolonged discussion at bedside regarding her code status, with the patient wishing to forego intubation. She is A&Ox4 at time of this discussion. PRBC ordered. Will hold ASA/heparin at this time, as I feel her elevated troponin is likely demand mediated at this time, especially given the anemia. I do not suspect acute hemorrhagic process at this time, however. Labs also show ATILIO with Cr 2.2, previously 1.1, with markedly elevated lactate > 8; likely in store representative of septic shock. BP is WNL, however. Will admit for further management. A 20 g peripheral catheter was placed in her left IJ under US guidance by me in order to obtain temporary IV access to facilitate her care. Dragon Disclaimer Dragon Disclaimer This electronic medical record was generated, in whole or in part, using a voice recognition dictation system. Critical Care Time Critical care time was [30] minutes exclusive of procedures. Departure Departure Impression: Primary Impression: Acute on chronic respiratory failure Additional Impressions: Multilobar lung infiltrate NSTEMI (non-ST elevated myocardial infarction) Hypoglycemia Septic shock ATILIO (acute kidney injury) Disposition: 09 ADMITTED INPATIENT Admitting Physician: ISELA (Dr. Serrano) Condition: CRITICAL Referrals: COSMO CASTRO MD (PCP) Problem Qualifiers Primary Impression: Acute on chronic respiratory failure Respiratory failure complication: unspecified whether with hypoxia or hypercapnia Qualified Codes: J96.20 - Acute and chronic respiratory failure, unspecified whether with hypoxia or hypercapnia LIVIER BLEDSOE DO Aug 15, 2019 07:35
--- NOTE | 2019-08-15 08:38 | RAD ---
AP chest x-ray HISTORY: Cough and fever. COMPARISON: Chest x-ray August 12, 2019 and priors. FINDINGS: Patient is rotated to the right. Heart size stable. Right asymmetric hilar density and perihilar linear density consistent with chronic right middle lobe collapse and scarring as present on prior CT imaging stable. Mild bilateral duct right pleural thickening stable. Hyperinflation the lungs related to emphysema again demonstrated. There are heterogeneous opacities of bilateral upper lobes and at the right lower lobe which have developed. Bones are unremarkable. IMPRESSION: 1. Developing pulmonary infiltrates at the bilateral upper lobes and right lower lobe could indicate multilobar pneumonia. 2. Chronic right middle lobe collapse and scarring is stable. 3. Mild diaphragmatic pleural thickening is stable. Electronically signed by: Maged Jacobson MD (08/15/2019 8:35 AM) [facility]
[2019-08-15 08:40] LABS: BASO % 0 % (0-3); EOS % 0 % (0-3); HEMATOCRIT 22.6 % (36.0-47.0); LYMPH # 0.7 x10^3/uL (1.0-4.8); LYMPH % 11 % (24-48); MEAN CORPUSCULAR HEMOGLOBIN 30 pg (25-35); MEAN CORPUSCULAR HGB CONC 31 g/dL (31-37); MEAN CORPUSCULAR VOLUME 98 fL (79-100); MONO # 0.1 x10^3/uL (0.0-1.1); MONO % 2 % (0-9); NEUT # 5.8 x10^3/uL (1.8-7.7); NEUT % 87 % (31-73); PLATELET COUNT 205 x10^3/uL (140-400); RED CELL DISTRIBUTION WIDTH 19.5 % (11.5-14.5); WHITE BLOOD COUNT 6.7 x10^3/uL (4.0-11.0)
[2019-08-15 09:10] LABS: ALBUMIN 2.4 g/dL (3.4-5.0); ALBUMIN/GLOBULIN RATIO 0.5 (1.0-1.7); CALCIUM 8.6 mg/dL (8.5-10.1); CREATININE 2.2 mg/dL (0.6-1.0); GFR 26.1; TOTAL BILIRUBIN 0.9 mg/dL (0.2-1.0); TOTAL PROTEIN 7.6 g/dL (6.4-8.2)
[2019-08-15 09:11] LABS: MAGNESIUM 2.2 mg/dL (1.8-2.4)
[2019-08-15] MEDS ORDERED: DEXTROSE 50% 25 GM / 50ML DISP.SYRIN. IV ONE ×2 (09:14→09:15)
[2019-08-15] MEDS ORDERED: IV NORMAL SALINE 500ML BAG 500 ML IV ONE (09:30)
[2019-08-15 09:37] LABS: % BANDS 13 % (0-9); % LYMPHS 9 % (24-48); % MONOS 1 % (0-10); % SEGS 77 % (35-66); NUCLEATED RBC 1; PLT ESTIMATE ADEQUATE (ADEQUATE)
[2019-08-15 09:39] LABS: ANISOCYTOSIS MOD; OVALOCYTES FEW; POLYCHROMASIA MOD; SCHISTOCYTES OCC
[2019-08-15] MEDS ORDERED: ONDANSETRON PF 4 MG/2 ML VIAL. IV PRN (10:00)
[2019-08-15] MEDS ORDERED: DOCUSATE SODIUM 100 MG CAPSULE. PO PRN (10:30)
[2019-08-15] MEDS ORDERED: CALCIUM CARBONATE 500 MG TABLET PO PRN (10:30)
[2019-08-15] MEDS ORDERED: ALBUTEROL SULFATE 2.5 MG/3 ML NEBU. INH PRN (10:30)
[2019-08-15] MEDS ORDERED: guaiFENesin ORAL 200 MG/10 ML LIQUID. PO PRN (10:30)
[2019-08-15] MEDS ORDERED: busPIRone 5 MG TABLET. PO PRN (10:30)
[2019-08-15] MEDS ORDERED: MAG HYDROX/ALUMINUM HYD/SIMETH 30 ML ORAL.SUSP PO PRN (10:30)
[2019-08-15] MEDS ORDERED: ACETAMINOPHEN 325 MG TABLET. PO PRN (10:30)
--- NOTE | 2019-08-15 10:35 | PDOC1 ---
History and Physical Date of Admission Date of Admission DATE: 08/15/19 TIME: 10:19 Source Source: Patient History of Present Illness History of Present Illness Ms Srinivasan is a 78 yo w/ PMHx chronic respiratory failure, normally wears oxygen at 2 liters per nasal cannula, she presented with increasing shortness of breath. Noted at SNF with temp 100.4F and SOB. Patient states she just feels generally unwell and a bit confused. Reportedly hypoxic on O2 prior to arrival with mild tachycardia. She was recently discharged to SNF 08/01 for similar symptoms on Cefdinir. CXR with multilobar pneumonia. Labs: BNP 26939, Trop 1.530, WBC 6.7, Hb 7, Platelets 205. Na 139, K 5, Cl 101, HCO3 22, BUN 40, Cr 2.2, Glucose 32 Lactate 8.4 --> 4.1 after blood transfusion. EKG - Sinus tachycardia. Heart rate 104. Normal intervals. Diffuse nonspecific STT changes. No STEMI. Weak. No NVD. No CP. No fevers. Started on IV zyvox and zosyn, given 1u PRBC, dextrose. Notes strenuously she is a DNR/DNI Past Medical History Cardiovascular: HTN Pulmonary: COPD CENTRAL NERVOUS SYSTEM: Other GI: GERD Heme/Onc: No pertinent hx Hepatobiliary: No pertinent hx Psych: Anxiety Musculoskeletal: Osteoarthritis Rheumatologic: No pertinent hx Infectious disease: No pertinent hx Endocrine: Hypothyroidism Past Surgical History Past Surgical History: Cholecystectomy, Hysterectomy, Other Family History Family History: Heart Disease Family History: Parent Social History ALCOHOL: none Drugs: None Current Problem List Problem List Problems Medical Problems: (1) Acute on chronic respiratory failure Status: Acute (2) ATILIO (acute kidney injury) Status: Acute (3) Hypoglycemia Status: Acute (4) Multilobar lung infiltrate Status: Acute (5) NSTEMI (non-ST elevated myocardial infarction) Status: Acute (6) Septic shock Status: Acute Current Medications Current Medications Current Medications Piperacillin Sod/ Tazobactam Sod 3.375 gm/Sodium Chloride 50 ml @ 100 mls/hr 1X ONCE IV Last administered on 08/15/19at 08:27; Start 08/15/19 at 07:30; Stop 08/15/19 at 07:59; Status DC Sodium Chloride 1,000 ml @ 1,000 mls/hr 1X ONCE IV Last administered on 08/15/19at 08:34; Start 08/15/19 at 07:30; Stop 08/15/19 at 08:29; Status DC Methylprednisolone Sodium Succinate (SOLU-Medrol 125MG VIAL) 125 mg 1X ONCE IV Last administered on 08/15/19at 08:26; Start 08/15/19 at 07:30; Stop 08/15/19 at 07:34; Status DC Albuterol/ Ipratropium (Duoneb) 3 ml 1X ONCE NEB Last administered on 08/15/19at 08:00; Start 08/15/19 at 07:30; Stop 08/15/19 at 07:34; Status DC Linezolid/Dextrose 300 ml @ 300 mls/hr Q12HR ONCE IV ; Start 08/15/19 at 09:00; Stop 08/15/19 at 09:59; Status UNV Linezolid/Dextrose 300 ml @ 300 mls/hr 1X ONCE IV Last administered on 08/15/19at 10:06; Start 08/15/19 at 09:00; Stop 08/15/19 at 09:59; Status DC Dextrose (Dextrose 50%-Water Syringe) 25 gm 1X ONCE IV Last administered on 08/15/19at 09:22; Start 08/15/19 at 09:15; Stop 08/15/19 at 09:18; Status DC Dextrose (Dextrose 50%-Water Syringe) 25 gm STK-MED ONCE IV ; Start 08/15/19 at 09:14; Stop 08/15/19 at 09:15; Status DC Sodium Chloride 1,000 ml @ 1,000 mls/hr 1X ONCE IV ; Start 08/15/19 at 09:30; Stop 08/15/19 at 10:29 Sodium Chloride 500 ml @ 500 mls/hr 1X ONCE IV ; Start 08/15/19 at 09:30; Stop 08/15/19 at 10:29 Ondansetron HCl (Zofran) 4 mg PRN Q8HRS PRN IV NAUSEA/VOMITING; Start 08/15/19 at 10:00; Stop 08/16/19 at 09:59 Active Scripts Active Aspirin Ec (Aspirin) 81 Mg Tablet.dr 81 Mg PO DAILYWBKFT 30 Days Cefdinir 300 Mg Capsule 300 Mg PO BID 7 Days Culturelle (Lactobacillus Rhamnosus Gg) 1 Each Cap.sprink 1 Cap PO BID 30 Days Dok (Docusate Sodium) 100 Mg Capsule 100 Mg PO PRN BID PRN 30 Days Mag-Al Plus Xs Suspension (Mag Hydrox/Al Hydrox/Simeth) 30 Ml Oral.susp 30 Ml PO PRN DAILY PRN 10 Days Guaifenesin 100 Mg/5 Ml Liquid 200 Mg PO PRN Q4HRS PRN 10 Days Buspirone Hcl 5 Mg Tablet 5 Mg PO PRN TID PRN 30 Days Gabapentin (Gabapentin) 100 Mg Capsule 100 Mg PO TID 30 Days Tylenol (Acetaminophen) 325 Mg Tablet 650 Mg PO PRN Q4HRS PRN 30 Days Metoprolol Tartrate 25 Mg Tablet 25 Mg PO BID 30 Days Reported Nexium Capsule (Esomeprazole Magnesium) 40 Mg Capsule.dr 40 Mg PO DAILYAC Losartan Potassium 100 Mg Tablet 100 Mg PO DAILY Benzonatate 200 Mg Capsule 1 Cap PO PRN TID Calcium (Calcium Carbonate) 500 Mg Tablet 500 Mg PO Multivitamins (Multivitamin) 1 Each Tablet 1 Tab PO DAILY Proair Hfa Inhaler (Albuterol Sulfate) 8.5 Gm Hfa.aer.ad 1 Puff INH PRN Q4HRS PRN Zoloft (Sertraline Hcl) 100 Mg Tablet 100 Mg PO DAILY08 Synthroid (Levothyroxine Sodium) 50 Mcg Tablet 50 Mcg PO DAILY06 Allergies Allergies: Coded Allergies: codeine (Verified Adverse Reaction, Intermediate, vomiting, 08/12/18) ROS General: YES: Fatigue, Malaise PSYCHOLOGICAL ROS: YES: Anxiety; No: Behavioral Disorder, Concentration difficultie, Decreased libido, Depression, Disorientation, Hallucinations, Hostility, Irritablity, Memory difficulties, Mood Swings, Obsessive thoughts, Physical abuse, Sexual abuse, Sleep disturbances, Suicidal ideation, Other Eyes: No Blurry vision, No Decreased vision, No Double vision, No Dry eyes, No Excessive tearing, No Eye Pain, No Itchy Eyes, No Loss of vision, No Photophobia, No Scotomata, No Uses contacts, No Uses glasses, No Other ALLERGY AND IMMUNOLOGY: No: Hives, Insect Bite Sensitivity, Itchy/Watery Eyes, Nasal Congestion, Post Nasal Drip, Seasonal Allergies, Other Hematological and Lymphatic: No: Bleeding Problems, Blood Clots, Blood Transfusions, Brusing, Night Sweats, Pallor, Swollen Lymph Nodes, Other ENDOCRINE: No: Breast Changes, Galactorrhea, Hair Pattern Changes, Hot Flashes, Malaise/lethargy, Mood Swings, Palpitations, Polydipsia/polyuria, Skin Changes, Temperature Intolerance, Unexpected Weight Changes, Other Breast: No New/Changing Breast Lumps, No Nipple changes, No Nipple discharge, No Other Respiratory: YES: Cough, Orthopnea, Shortness of breath, SOB with excertion, Tachypnea, Wheezing; No: Hemoptysis, Pleuritic Pain, Sputum Changes, Stridor, Other Cardiovascular: No Chest Pain, No Palpitations, No Orthopnea, No Paroxysmal Noc. Dyspnea, No Edema, No Lt Headedness, No Other Gastrointestinal: No Nausea, No Vomiting, No Abdominal Pain, No Diarrhea, No Constipation, No Melena, No Hematochezia, No Other Genitourinary: No Dysuria, No Frequency, No Incontinence, No Hematuria, No Retention, No Discharge, No Urgency, No Pain, No Flank Pain, No Other, No , No , No , No , No , No , No Musculoskeletal: Yes Gait Disturbance, Yes Muscular Weakness; No Joint Pain, No Joint Stiffness, No Joint Swelling, No Muscle Pain, No Pain In:, No Swelling In:, No Other Neurological: No Behavorial Changes, No Bowel/Bladder ControlChng, No Confusion, No Dizziness, No Gait Disturbance, No Headaches, No Impaired Coord/balance, No Memory Loss, No Numbness/Tingling, No Seizures, No Speech Problems, No Tremors, No Visual Changes, No Weakness, No Other Skin: No Dry Skin, No Eczema, No Hair Changes, No Lumps, No Mole Changes, No Mottling, No Nail Changes, No Pruritus, No Rash, No Skin Lesion Changes, No Other, No Acne Physical Exam General: Alert, Oriented X3, Cooperative, moderate distress HEENT: Atraumatic, PERRLA, EOMI, Mucous membr. moist/pink Lungs: Other (Bilateral rhonchi) Heart: S1S2, RRR, no thrills, no rubs, no gallops, no murmurs Abdomen: Normal bowel sounds, Soft, No tenderness, No hepatosplenomegaly, No masses Rectal Exam: not examined Extremities: No clubbing, No cyanosis, No edema, Normal pulses, No tenderness/swelling Skin: No rashes, No breakdown, No significant lesion Neuro: Normal speech, Strength at 5/5 X4 ext, Normal tone, Sensation intact, Cranial nerves 3-12 NL, Reflexes 2+ Psych/Mental Status: Mental status NL, Mood NL Vitals Vitals Vital Signs Date Time Temp Pulse Resp B/P (MAP) Pulse Ox O2 Delivery O2 Flow Rate FiO2 08/15/19 08:14 93 Nasal Cannula 6.0 08/15/19 07:34 98.0 110 26 189/87 (121) 98.0 Labs Labs Laboratory Tests Test 08/15/19 08:15 08/15/19 09:58 White Blood Count 6.7 x10^3/uL (4.0-11.0) Red Blood Count 2.30 x10^6/uL (3.50-5.40) Hemoglobin 7.0 g/dL (12.0-15.5) Hematocrit 22.6 % (36.0-47.0) Mean Corpuscular Volume 98 fL (79-100) Mean Corpuscular Hemoglobin 30 pg (25-35) Mean Corpuscular Hemoglobin Concent 31 g/dL (31-37) Red Cell Distribution Width 19.5 % (11.5-14.5) Platelet Count 205 x10^3/uL (140-400) Neutrophils (%) (Auto) 87 % (31-73) Lymphocytes (%) (Auto) 11 % (24-48) Monocytes (%) (Auto) 2 % (0-9) Eosinophils (%) (Auto) 0 % (0-3) Basophils (%) (Auto) 0 % (0-3) Neutrophils # (Auto) 5.8 x10^3/uL (1.8-7.7) Lymphocytes # (Auto) 0.7 x10^3/uL (1.0-4.8) Monocytes # (Auto) 0.1 x10^3/uL (0.0-1.1) Eosinophils # (Auto) 0.0 x10^3/uL (0.0-0.7) Basophils # (Auto) 0.0 x10^3/uL (0.0-0.2) Segmented Neutrophils % 77 % (35-66) Band Neutrophils % 13 % (0-9) Lymphocytes % 9 % (24-48) Monocytes % 1 % (0-10) Nucleated Red Blood Cells 1 Platelet Estimate Adequate (ADEQUATE) Polychromasia Mod Anisocytosis Mod Macrocytosis Slight Ovalocytes Few Schistocytes Occ Sodium Level 139 mmol/L (136-145) Potassium Level 5.0 mmol/L (3.5-5.1) Chloride Level 101 mmol/L (98-107) Carbon Dioxide Level 22 mmol/L (21-32) Anion Gap 16 (6-14) Blood Urea Nitrogen 40 mg/dL (7-20) Creatinine 2.2 mg/dL (0.6-1.0) Estimated GFR (Cockcroft-Gault) 26.1 BUN/Creatinine Ratio 18 (6-20) Glucose Level 32 mg/dL (70-99) Lactic Acid Level 8.4 mmol/L (0.4-2.0) Calcium Level 8.6 mg/dL (8.5-10.1) Magnesium Level 2.2 mg/dL (1.8-2.4) Total Bilirubin 0.9 mg/dL (0.2-1.0) Aspartate Amino Transf (AST/SGOT) 114 U/L (15-37) Alanine Aminotransferase (ALT/SGPT) 64 U/L (14-59) Alkaline Phosphatase 145 U/L (46-116) Troponin I Quantitative 1.530 ng/mL (0.000-0.055) TQ-Nrg-N-Type Natriuretic Peptide 10955 pg/mL (0-449) Total Protein 7.6 g/dL (6.4-8.2) Albumin 2.4 g/dL (3.4-5.0) Albumin/Globulin Ratio 0.5 (1.0-1.7) Glucose (Fingerstick) 165 mg/dL (70-99) Laboratory Tests Test 08/15/19 08:15 08/15/19 09:58 White Blood Count 6.7 x10^3/uL (4.0-11.0) Red Blood Count 2.30 x10^6/uL (3.50-5.40) Hemoglobin 7.0 g/dL (12.0-15.5) Hematocrit 22.6 % (36.0-47.0) Mean Corpuscular Volume 98 fL (79-100) Mean Corpuscular Hemoglobin 30 pg (25-35) Mean Corpuscular Hemoglobin Concent 31 g/dL (31-37) Red Cell Distribution Width 19.5 % (11.5-14.5) Platelet Count 205 x10^3/uL (140-400) Neutrophils (%) (Auto) 87 % (31-73) Lymphocytes (%) (Auto) 11 % (24-48) Monocytes (%) (Auto) 2 % (0-9) Eosinophils (%) (Auto) 0 % (0-3) Basophils (%) (Auto) 0 % (0-3) Neutrophils # (Auto) 5.8 x10^3/uL (1.8-7.7) Lymphocytes # (Auto) 0.7 x10^3/uL (1.0-4.8) Monocytes # (Auto) 0.1 x10^3/uL (0.0-1.1) Eosinophils # (Auto) 0.0 x10^3/uL (0.0-0.7) Basophils # (Auto) 0.0 x10^3/uL (0.0-0.2) Segmented Neutrophils % 77 % (35-66) Band Neutrophils % 13 % (0-9) Lymphocytes % 9 % (24-48) Monocytes % 1 % (0-10) Nucleated Red Blood Cells 1 Platelet Estimate Adequate (ADEQUATE) Polychromasia Mod Anisocytosis Mod Macrocytosis Slight Ovalocytes Few Schistocytes Occ Sodium Level 139 mmol/L (136-145) Potassium Level 5.0 mmol/L (3.5-5.1) Chloride Level 101 mmol/L (98-107) Carbon Dioxide Level 22 mmol/L (21-32) Anion Gap 16 (6-14) Blood Urea Nitrogen 40 mg/dL (7-20) Creatinine 2.2 mg/dL (0.6-1.0) Estimated GFR (Cockcroft-Gault) 26.1 BUN/Creatinine Ratio 18 (6-20) Glucose Level 32 mg/dL (70-99) Lactic Acid Level 8.4 mmol/L (0.4-2.0) Calcium Level 8.6 mg/dL (8.5-10.1) Magnesium Level 2.2 mg/dL (1.8-2.4) Total Bilirubin 0.9 mg/dL (0.2-1.0) Aspartate Amino Transf (AST/SGOT) 114 U/L (15-37) Alanine Aminotransferase (ALT/SGPT) 64 U/L (14-59) Alkaline Phosphatase 145 U/L (46-116) Troponin I Quantitative 1.530 ng/mL (0.000-0.055) LL-Cqi-Q-Type Natriuretic Peptide 44791 pg/mL (0-449) Total Protein 7.6 g/dL (6.4-8.2) Albumin 2.4 g/dL (3.4-5.0) Albumin/Globulin Ratio 0.5 (1.0-1.7) Glucose (Fingerstick) 165 mg/dL (70-99) Images Images CXR - 1. Developing pulmonary infiltrates at the bilateral upper lobes and right lower lobe could indicate multilobar pneumonia. 2. Chronic right middle lobe collapse and scarring is stable. 3. Mild diaphragmatic pleural thickening is stable. VTE Prophylaxis Ordered VTE Prophylaxis Devices: Yes VTE Pharmacological Prophylaxi: Yes Assessment/Plan Assessment/Plan A/P: Acute on chronic hypoxemic respiratory failure - worsening from baseline. No need for BIPAP at this time, she does not wish for intubation. Nebs improved Acute anemia - likely blood loss - improved with blood transfusion Acute exacerbation of chronic obstructive pulmonary disease - Will cont nebs, consult pulm Multilobar lung infiltrate - treat as HCAP, zyvox NSTEMI (non-ST elevated myocardial infarction) - likely demand ishcemia, will monitor Hypoglycemia - will monitor Lactic acidosis - sepsis vs hypoglycemia related Sepsis - 2/2 multilobar pneumonia, will treat ATILIO - likely vasomotor nephropathy, given her BNP difficult to give too much fluid, will monitor her fluid status closely Esophageal stricture, status post dilatation Tobacco dependence, in remission Severe anxiety FEN - Cardiac PPX - SCDs DNR/DNI Dispo - inpatient ICU for severe sepsis MATHEW BECKER MD Aug 15, 2019 10:35
[2019-08-15] MEDS ORDERED: FUROSEMIDE 20 MG/2 ML VIAL. IVP ONE (11:45)
[2019-08-15 11:48] LABS: INFLUENZA A PATIENT NEGATIVE (NEGATIVE); INFLUENZA B PATIENT NEGATIVE (NEGATIVE)
[2019-08-15] MEDS: SERTRALINE 50 MG TABLET. PO SCH (16:44)
[2019-08-15] MEDS: METOPROLOL TART IMMED RELEASE 25 MG TABLET. PO SCH ×2 (16:44→21:06)
[2019-08-15] MEDS: ASPIRIN ENTERIC COATED 81 MG TABLET.DR. PO SCH (16:44)
[2019-08-15] MEDS: GABAPENTIN 100 MG CAPSULE. PO SCH ×2 (16:44→21:06)
[2019-08-15] MEDS: PANTOPRAZOLE 40 MG TABLET.DR. PO SCH (16:44)
[2019-08-15] MEDS: LACTOBACILLUS RHAMNOSUS GG 1 CAPSULE. PO SCH (21:05)
--- NOTE | 2019-08-15 21:15 | EKG ---
[facility] [address] [place] [address] Test Date: 2019-08-15 Test Time: 07:41:06 Pat Name: MAN LAMBERT Department: Room: 271 1 Gender: F Research Methods Instructor: : 1940 Requested By: LIVIER BLEDSOE Order Number: [id number] Reading MD: Measurements Intervals [place] Rate: 103 P: 64 [place]: 92 QRS: 6 QRSD: 78 T: 47 QT: 326 QTc: 428 Interpretive Statements SINUS TACHYCARDIA LEFT ATRIAL ABNORMALITY INDETERMINATE AXIS S1,S2,S3 PATTERN QRS(T) CONTOUR ABNORMALITY CONSISTENT WITH ANTEROSEPTAL INFARCT PROBABLY OLD NON SPECIFIC ST DEPRESSION ABNORMAL ECG No previous ECG available for comparison
[2019-08-16] VITALS (19 sets, daily range): BP systolic 114–154; BP diastolic 58–89
[2019-08-16] MEDS ORDERED: LEVOTHYROXINE 50 MCG TABLET PO SCH (06:00)
[2019-08-16] MEDS: PANTOPRAZOLE 40 MG TABLET.DR. PO SCH (07:30)
[2019-08-16] MEDS: SERTRALINE 50 MG TABLET. PO SCH (08:00)
[2019-08-16] MEDS: ASPIRIN ENTERIC COATED 81 MG TABLET.DR. PO SCH (08:00)
[2019-08-16 08:50] LABS: HEMATOCRIT 35.5 % (36.0-47.0); HEMOGLOBIN 11.2 g/dL (12.0-15.5); RED BLOOD COUNT 3.64 x10^6/uL (3.50-5.40); RED CELL DISTRIBUTION WIDTH 18.8 % (11.5-14.5)
[2019-08-16] MEDS: LACTOBACILLUS RHAMNOSUS GG 1 CAPSULE. PO SCH (09:00)
[2019-08-16] MEDS: GABAPENTIN 100 MG CAPSULE. PO SCH ×2 (09:00→14:00)
[2019-08-16 09:03] LABS: BASE EXCESS ABG -5 mmol/L (-3-3); HCO3 ABG 24 mmol/L (21-28); PO2 ABG 108 mmHg (65-108); SAT O2 ABG 96 % (92-99)
[2019-08-16 09:04] LABS: ALBUMIN 2.5 g/dL (3.4-5.0); ALBUMIN/GLOBULIN RATIO 0.4 (1.0-1.7); CALCIUM 8.5 mg/dL (8.5-10.1); CREATININE 2.1 mg/dL (0.6-1.0); GFR 27.5; POTASSIUM 5.6 mmol/L (3.5-5.1); TOTAL PROTEIN 8.3 g/dL (6.4-8.2)
[2019-08-16 09:21] LABS: FIO2 ABG 7 lpm nc; PCO2 ABG 66 mmHg (35-46)
--- NOTE | 2019-08-16 09:28 | NUR ---
Assumed care of patient this AM. Upon asssessment, noticed that patient is very lethargic, tachypneic and extremely weak. discusses patient status with ICU charge nurse and it was determined to order blood gases and repeat labs. Ordered ABG's, lactic, CBC and BMP. After getting blood gas, found to be critical lab results. Per RT BIPAP is recommended for patient at this time. PGd and advised electronic bench technician who agreed with POC.
--- NOTE | 2019-08-16 09:53 | RAD ---
Examination: CHEST AP ONLY History: Hypoxia Comparison: 08/15/2019 AP view of the chest. Findings: AP portable upright frontal view of the chest was obtained. The cardiomediastinal silhouette is normal. Interstitial infiltrates are again seen especially involving the right lung field and to a lesser extent in the left upper lung field.. There is no pneumothorax. Mild left costophrenic angle blunting is again seen. No acute bone abnormality. IMPRESSION: Improved right upper lung infiltrate. No significant change involving left upper lung field infiltrates suspected considering differences in patient positioning. Electronically signed by: Brian Barker MD (08/16/2019 9:50 AM) [id number]
[2019-08-16] MEDS ORDERED: IV NORMAL SALINE 1000ML BAG 1,000 ML IV SCH (11:10)
--- NOTE | 2019-08-16 11:10 | NUR ---
Recvd call from primary physician regarding patient. Instructed to follow sepsis protocol regarding elevated lactic and also to perform cope virus test. Patient has not been in isolation since admission. This RN with the assistance of charge nurse put patient in Isolation. This RN initiated recommended PPE at time of test order however has been at bedside since beginning of shift without precaution. Advised lead housekeeper and received N95 mask
[2019-08-16] MEDS ORDERED: IV NORMAL SALINE 500ML BAG 500 ML IV PRN (11:15)
--- NOTE | 2019-08-16 11:17 | PDOC ---
PROGRESS NOTES History of Present Illness History of Present Illness Images Images CXR - 1. Developing pulmonary infiltrates at the bilateral upper lobes and right lower lobe could indicate multilobar pneumonia. 2. Chronic right middle lobe collapse and scarring is stable. 3. Mild diaphragmatic pleural thickening is stable. VTE Prophylaxis Ordered VTE Prophylaxis Devices: Yes VTE Pharmacological Prophylaxi: Yes impression Assessment/Plan A/P: Acute on chronic hypoxemic respiratory failure - worsening from baseline. No need for BIPAP at this time, she does not wish for intubation. Nebs improved Acute anemia - likely blood loss - improved with blood transfusion Acute exacerbation of chronic obstructive pulmonary disease - Will cont nebs, consult pulm Multilobar lung infiltrate - treat as HCAP, zyvox NSTEMI (non-ST elevated myocardial infarction) - likely demand ishcemia, will monitor Hypoglycemia - will monitor Lactic acidosis - sepsis vs hypoglycemia related Sepsis - 2/2 multilobar pneumonia, will treat ATILIO - likely vasomotor nephropathy, given her BNP difficult to give too much fluid, will monitor her fluid status closely Esophageal stricture, status post dilatation Tobacco dependence, in remission Severe anxiety FEN - Cardiac PPX - SCDs DNR/DNI Dispo - inpatient ICU for severe sepsis covid-19 screening ID CONSULT iv Dapto and Micafungin iv zyvox, meropenem PULM CONSULT 36 MIN CC TIME Vitals Vitals Vital Signs Date Time Temp Pulse Resp B/P (MAP) Pulse Ox O2 Delivery O2 Flow Rate FiO2 08/16/19 10:00 80 24 116/59 (78) 96 BiPAP/CPAP 08/16/19 09:27 6.0 08/16/19 08:45 97.9 97.9 Physical Exam Physical Exam ON BIPAP, CALM General: Alert, Oriented X3, Cooperative, moderate distress Lungs: Crackles Abdomen: Normal bowel sounds, Soft, No tenderness, No hepatosplenomegaly, No masses Extremities: No clubbing, No cyanosis, No edema, Normal pulses, No tenderness/swelling Skin: No rashes, No breakdown, No significant lesion Labs LABS Laboratory Tests Test 08/15/19 11:46 08/15/19 11:50 08/16/19 08:40 08/16/19 09:05 Glucose (Fingerstick) 248 mg/dL (70-99) Lactic Acid Level 4.1 mmol/L (0.4-2.0) 4.4 mmol/L (0.4-2.0) White Blood Count 10.0 x10^3/uL (4.0-11.0) Red Blood Count 3.64 x10^6/uL (3.50-5.40) Hemoglobin 11.2 g/dL (12.0-15.5) Hematocrit 35.5 % (36.0-47.0) Mean Corpuscular Volume 97 fL (79-100) Mean Corpuscular Hemoglobin 31 pg (25-35) Mean Corpuscular Hemoglobin Concent 32 g/dL (31-37) Red Cell Distribution Width 18.8 % (11.5-14.5) Platelet Count 173 x10^3/uL (140-400) Sodium Level 138 mmol/L (136-145) Potassium Level 5.6 mmol/L (3.5-5.1) Chloride Level 103 mmol/L (98-107) Carbon Dioxide Level 25 mmol/L (21-32) Anion Gap 10 (6-14) Blood Urea Nitrogen 47 mg/dL (7-20) Creatinine 2.1 mg/dL (0.6-1.0) Estimated GFR (Cockcroft-Gault) 27.5 BUN/Creatinine Ratio 22 (6-20) Glucose Level 107 mg/dL (70-99) Calcium Level 8.5 mg/dL (8.5-10.1) Total Bilirubin 1.0 mg/dL (0.2-1.0) Aspartate Amino Transf (AST/SGOT) 455 U/L (15-37) Alanine Aminotransferase (ALT/SGPT) 217 U/L (14-59) Alkaline Phosphatase 148 U/L (46-116) Total Protein 8.3 g/dL (6.4-8.2) Albumin 2.5 g/dL (3.4-5.0) Albumin/Globulin Ratio 0.4 (1.0-1.7) O2 Saturation 96 % (92-99) Arterial Blood pH 7.18 (7.35-7.45) Arterial Blood pCO2 at Patient Temp 66 mmHg (35-46) Arterial Blood pO2 at Patient Temp 108 mmHg (65-108) Arterial Blood HCO3 24 mmol/L (21-28) Arterial Blood Base Excess -5 mmol/L (-3-3) FiO2 7 lpm nc Assessment and Plan Assessmemt and Plan Problems Medical Problems: (1) Acute on chronic respiratory failure Status: Acute (2) ATILIO (acute kidney injury) Status: Acute (3) Hypoglycemia Status: Acute (4) Multilobar lung infiltrate Status: Acute (5) NSTEMI (non-ST elevated myocardial infarction) Status: Acute (6) Septic shock Status: Acute Comment Review of Relevant I have reviewed the following items elliott (where applicable) has been applied. Labs Laboratory Tests Test 08/15/19 07:34 08/15/19 08:15 08/15/19 09:58 08/15/19 11:46 Influenza Type A Antigen Negative (NEGATIVE) Influenza Type B Antigen Negative (NEGATIVE) White Blood Count 6.7 x10^3/uL (4.0-11.0) Red Blood Count 2.30 x10^6/uL (3.50-5.40) Hemoglobin 7.0 g/dL (12.0-15.5) Hematocrit 22.6 % (36.0-47.0) Mean Corpuscular Volume 98 fL (79-100) Mean Corpuscular Hemoglobin 30 pg (25-35) Mean Corpuscular Hemoglobin Concent 31 g/dL (31-37) Red Cell Distribution Width 19.5 % (11.5-14.5) Platelet Count 205 x10^3/uL (140-400) Neutrophils (%) (Auto) 87 % (31-73) Lymphocytes (%) (Auto) 11 % (24-48) Monocytes (%) (Auto) 2 % (0-9) Eosinophils (%) (Auto) 0 % (0-3) Basophils (%) (Auto) 0 % (0-3) Neutrophils # (Auto) 5.8 x10^3/uL (1.8-7.7) Lymphocytes # (Auto) 0.7 x10^3/uL (1.0-4.8) Monocytes # (Auto) 0.1 x10^3/uL (0.0-1.1) Eosinophils # (Auto) 0.0 x10^3/uL (0.0-0.7) Basophils # (Auto) 0.0 x10^3/uL (0.0-0.2) Segmented Neutrophils % 77 % (35-66) Band Neutrophils % 13 % (0-9) Lymphocytes % 9 % (24-48) Monocytes % 1 % (0-10) Nucleated Red Blood Cells 1 Platelet Estimate Adequate (ADEQUATE) Polychromasia Mod Anisocytosis Mod Macrocytosis Slight Ovalocytes Few Schistocytes Occ Sodium Level 139 mmol/L (136-145) Potassium Level 5.0 mmol/L (3.5-5.1) Chloride Level 101 mmol/L (98-107) Carbon Dioxide Level 22 mmol/L (21-32) Anion Gap 16 (6-14) Blood Urea Nitrogen 40 mg/dL (7-20) Creatinine 2.2 mg/dL (0.6-1.0) Estimated GFR (Cockcroft-Gault) 26.1 BUN/Creatinine Ratio 18 (6-20) Glucose Level 32 mg/dL (70-99) Lactic Acid Level 8.4 mmol/L (0.4-2.0) Calcium Level 8.6 mg/dL (8.5-10.1) Magnesium Level 2.2 mg/dL (1.8-2.4) Total Bilirubin 0.9 mg/dL (0.2-1.0) Aspartate Amino Transf (AST/SGOT) 114 U/L (15-37) Alanine Aminotransferase (ALT/SGPT) 64 U/L (14-59) Alkaline Phosphatase 145 U/L (46-116) Troponin I Quantitative 1.530 ng/mL (0.000-0.055) [id number]-Type Natriuretic Peptide 62563 pg/mL (0-449) Total Protein 7.6 g/dL (6.4-8.2) Albumin 2.4 g/dL (3.4-5.0) Albumin/Globulin Ratio 0.5 (1.0-1.7) Glucose (Fingerstick) 165 mg/dL (70-99) 248 mg/dL (70-99) Test 08/15/19 11:50 08/16/19 08:40 08/16/19 09:05 Lactic Acid Level 4.1 mmol/L (0.4-2.0) 4.4 mmol/L (0.4-2.0) White Blood Count 10.0 x10^3/uL (4.0-11.0) Red Blood Count 3.64 x10^6/uL (3.50-5.40) Hemoglobin 11.2 g/dL (12.0-15.5) Hematocrit 35.5 % (36.0-47.0) Mean Corpuscular Volume 97 fL (79-100) Mean Corpuscular Hemoglobin 31 pg (25-35) Mean Corpuscular Hemoglobin Concent 32 g/dL (31-37) Red Cell Distribution Width 18.8 % (11.5-14.5) Platelet Count 173 x10^3/uL (140-400) Sodium Level 138 mmol/L (136-145) Potassium Level 5.6 mmol/L (3.5-5.1) Chloride Level 103 mmol/L (98-107) Carbon Dioxide Level 25 mmol/L (21-32) Anion Gap 10 (6-14) Blood Urea Nitrogen 47 mg/dL (7-20) Creatinine 2.1 mg/dL (0.6-1.0) Estimated GFR (Cockcroft-Gault) 27.5 BUN/Creatinine Ratio 22 (6-20) Glucose Level 107 mg/dL (70-99) Calcium Level 8.5 mg/dL (8.5-10.1) Total Bilirubin 1.0 mg/dL (0.2-1.0) Aspartate Amino Transf (AST/SGOT) 455 U/L (15-37) Alanine Aminotransferase (ALT/SGPT) 217 U/L (14-59) Alkaline Phosphatase 148 U/L (46-116) Total Protein 8.3 g/dL (6.4-8.2) Albumin 2.5 g/dL (3.4-5.0) Albumin/Globulin Ratio 0.4 (1.0-1.7) O2 Saturation 96 % (92-99) Arterial Blood pH 7.18 (7.35-7.45) Arterial Blood pCO2 at Patient Temp 66 mmHg (35-46) Arterial Blood pO2 at Patient Temp 108 mmHg (65-108) Arterial Blood HCO3 24 mmol/L (21-28) Arterial Blood Base Excess -5 mmol/L (-3-3) FiO2 7 lpm nc Laboratory Tests Test 08/15/19 11:46 08/15/19 11:50 08/16/19 08:40 08/16/19 09:05 Glucose (Fingerstick) 248 mg/dL (70-99) Lactic Acid Level 4.1 mmol/L (0.4-2.0) 4.4 mmol/L (0.4-2.0) White Blood Count 10.0 x10^3/uL (4.0-11.0) Red Blood Count 3.64 x10^6/uL (3.50-5.40) Hemoglobin 11.2 g/dL (12.0-15.5) Hematocrit 35.5 % (36.0-47.0) Mean Corpuscular Volume 97 fL (79-100) Mean Corpuscular Hemoglobin 31 pg (25-35) Mean Corpuscular Hemoglobin Concent 32 g/dL (31-37) Red Cell Distribution Width 18.8 % (11.5-14.5) Platelet Count 173 x10^3/uL (140-400) Sodium Level 138 mmol/L (136-145) Potassium Level 5.6 mmol/L (3.5-5.1) Chloride Level 103 mmol/L (98-107) Carbon Dioxide Level 25 mmol/L (21-32) Anion Gap 10 (6-14) Blood Urea Nitrogen 47 mg/dL (7-20) Creatinine 2.1 mg/dL (0.6-1.0) Estimated GFR (Cockcroft-Gault) 27.5 BUN/Creatinine Ratio 22 (6-20) Glucose Level 107 mg/dL (70-99) Calcium Level 8.5 mg/dL (8.5-10.1) Total Bilirubin 1.0 mg/dL (0.2-1.0) Aspartate Amino Transf (AST/SGOT) 455 U/L (15-37) Alanine Aminotransferase (ALT/SGPT) 217 U/L (14-59) Alkaline Phosphatase 148 U/L (46-116) Total Protein 8.3 g/dL (6.4-8.2) Albumin 2.5 g/dL (3.4-5.0) Albumin/Globulin Ratio 0.4 (1.0-1.7) O2 Saturation 96 % (92-99) Arterial Blood pH 7.18 (7.35-7.45) Arterial Blood pCO2 at Patient Temp 66 mmHg (35-46) Arterial Blood pO2 at Patient Temp 108 mmHg (65-108) Arterial Blood HCO3 24 mmol/L (21-28) Arterial Blood Base Excess -5 mmol/L (-3-3) FiO2 [address] Microbiology 08/15/19 Blood Culture - Preliminary, Resulted NO GROWTH AFTER 1 DAY Medications Current Medications Piperacillin Sod/ Tazobactam Sod 3.375 gm/Sodium Chloride 50 ml @ 100 mls/hr 1X ONCE IV Last administered on 08/15/19at 08:27; Start 08/15/19 at 07:30; Stop 08/15/19 at 07:59; Status DC Sodium Chloride 1,000 ml @ 1,000 mls/hr 1X ONCE IV Last administered on 08/15/19at 08:34; Start 08/15/19 at 07:30; Stop 08/15/19 at 08:29; Status DC Methylprednisolone Sodium Succinate (SOLU-Medrol 125MG VIAL) 125 mg 1X ONCE IV Last administered on 08/15/19at 08:26; Start 08/15/19 at 07:30; Stop 08/15/19 at 07:34; Status DC Albuterol/ Ipratropium (Duoneb) 3 ml 1X ONCE NEB Last administered on 07/25 07/15at 08:00; Start 08/15/19 at 07:30; Stop 08/15/19 at 07:34; Status DC Linezolid/Dextrose 300 ml @ 300 mls/hr Q12HR IV Last administered on 08/16/19at 09:53; Start 08/15/19 at 21:00 Linezolid/Dextrose 300 ml @ 300 mls/hr 1X ONCE IV Last administered on 08/15/19at 10:06; Start 08/15/19 at 09:00; Stop 08/15/19 at 09:59; Status DC Dextrose (Dextrose 50%-Water Syringe) 25 gm 1X ONCE IV Last administered on 08/15/19at 09:22; Start 08/15/19 at 09:15; Stop 08/15/19 at 09:18; Status DC Dextrose (Dextrose 50%-Water Syringe) 25 gm STK-MED ONCE IV ; Start 08/15/19 at 09:14; Stop 08/15/19 at 09:15; Status DC Sodium Chloride 1,000 ml @ 1,000 mls/hr 1X ONCE IV ; Start 08/15/19 at 09:30; Stop 08/15/19 at 10:29; Status DC Sodium Chloride 500 ml @ 500 mls/hr 1X ONCE IV Last administered on 08/15/19at 10:11; Start 08/15/19 at 09:30; Stop 08/15/19 at 10:29; Status DC Ondansetron HCl (Zofran) 4 mg PRN Q8HRS PRN IV NAUSEA/VOMITING; Start 08/15/19 at 10:00 Acetaminophen (Tylenol) 650 mg PRN Q4HRS PRN PO TEMP OVER 100.4F OR MILD PAIN; Start 08/15/19 at 10:30 Albuterol Sulfate (Ventolin Neb Soln) 2.5 mg PRN Q4HRS PRN INH SHORTNESS OF BREATH; Start 08/15/19 at 10:30 Aspirin (Ecotrin) 81 mg DAILYWBKFT PO Last administered on 08/15/19at 16:44; Start 08/15/19 at 14:00 Buspirone HCl (Buspar) 5 mg PRN TID PRN PO anxiety- 2ND CHOICE; Start 08/15/19 at 10:30 Calcium Carbonate/ Glycine (Oscal) 500 mg PRN DAILY PRN PO Indigestion; Start 08/15/19 at 10:30 Docusate Sodium (Colace) 100 mg PRN BID PRN PO CONSTIPATION; Start 08/15/19 at 10:30 Gabapentin (Neurontin) 100 mg TID PO Last administered on 08/15/19at 21:06; Start 08/15/19 at 14:00 Guaifenesin (Robitussin) 200 mg PRN Q4HRS PRN PO COUGH; Start 08/15/19 at 10:30 Lactobacillus Rhamnosus (Culturelle) 1 cap BID PO Last administered on 08/15/19at 21:05; Start 08/15/19 at 21:00 Levothyroxine Sodium (Synthroid) 50 mcg DAILY06 PO Last administered on at 05:21; Start 08/16/19 at 06:00 Al Hydroxide/Mg Hydroxide (Mylanta Plus Xs) 30 ml PRN DAILY PRN PO HEARTBURN / GAS; Start 08/15/19 at 10:30 Metoprolol Tartrate (Lopressor) 25 mg BID PO Last administered on 08/15/19at 21:06; Start 08/15/19 at 11:00 Pantoprazole Sodium (Protonix) 40 mg DAILYAC PO Last administered on 08/15/19at 16:44; Start 08/15/19 at 11:30 Sertraline HCl (Zoloft) 100 mg DAILY08 PO Last administered on 08/15/19at 16:44; Start 08/15/19 at 14:00 Furosemide (Lasix) 20 mg 1X ONCE IVP Last administered on 08/15/19at 12:02; Start 08/15/19 at 11:45; Stop 08/15/19 at 11:46; Status DC Active Scripts Active Aspirin Ec (Aspirin) 81 Mg Tablet.dr 81 Mg PO DAILYWBKFT 30 Days Cefdinir 300 Mg Capsule 300 Mg PO BID 7 Days Culturelle (Lactobacillus Rhamnosus Gg) 1 Each Cap.sprink 1 Cap PO BID 30 Days Dok (Docusate Sodium) 100 Mg Capsule 100 Mg PO PRN BID PRN 30 Days Mag-Al Plus Xs Suspension (Mag Hydrox/Al Hydrox/Simeth) 30 Ml Oral.susp 30 Ml PO PRN DAILY PRN 10 Days Guaifenesin 100 Mg/5 Ml Liquid 200 Mg PO PRN Q4HRS PRN 10 Days Buspirone Hcl 5 Mg Tablet 5 Mg PO PRN TID PRN 30 Days Gabapentin (Gabapentin) 100 Mg Capsule 100 Mg PO TID 30 Days Tylenol (Acetaminophen) 325 Mg Tablet 650 Mg PO PRN Q4HRS PRN 30 Days Metoprolol Tartrate 25 Mg Tablet 25 Mg PO BID 30 Days Reported Nexium Capsule (Esomeprazole Magnesium) 40 Mg Capsule.dr 40 Mg PO DAILYAC Losartan Potassium 100 Mg Tablet 100 Mg PO DAILY Benzonatate 200 Mg Capsule 1 Cap PO PRN TID Calcium (Calcium Carbonate) 500 Mg Tablet 500 Mg PO Multivitamins (Multivitamin) 1 Each Tablet 1 Tab PO DAILY Proair Hfa Inhaler (Albuterol Sulfate) 8.5 Gm Hfa.aer.ad 1 Puff INH PRN Q4HRS PRN Zoloft (Sertraline Hcl) 100 Mg Tablet 100 Mg PO DAILY08 Synthroid (Levothyroxine Sodium) 50 Mcg Tablet 50 Mcg PO DAILY06 Vitals/I & O Vital Sign - Last 24 Hours 08/15/19 08/15/19 08/15/19 08/15/19 11:14 12:45 14:00 15:00 Temp 98.7 98.7 98.5 98.7 98.7 98.5 Pulse 87 90 86 84 Resp 24 25 20 B/P (MAP) 166/73 183/73 174/68 (103) 172/74 (106) Pulse Ox 98 O2 Delivery Nasal Cannula O2 Flow Rate 6.0 6.0 08/15/19 08/15/19 08/15/19 08/15/19 16:00 16:00 16:44 17:00 Pulse 86 87 86 Resp B/P (MAP) 168/80 (109) 161/73 164/77 (106) Pulse Ox 98 99 O2 Delivery Nasal Cannula Nasal Cannula O2 Flow Rate 6.0 6.0 6.0 08/15/19 08/15/19 08/15/19 08/15/19 18:00 19:24 20:00 20:24 Temp 98.7 98.7 Pulse 86 89 89 Resp B/P (MAP) 171/69 (103) 183/86 (118) 171/72 (105) Pulse Ox 99 99 99 O2 Delivery Nasal Cannula Nasal Cannula Nasal Cannula Nasal Cannula O2 Flow Rate 6.0 6.0 6.0 6.0 08/15/19 08/15/19 08/15/19 08/15/19 21:00 21:06 22:24 22:54 Pulse 84 83 81 80 Resp B/P (MAP) 165/71 (102) 165/71 173/80 (111) 156/71 (99) Pulse Ox 99 98 98 O2 Delivery Nasal Cannula Nasal Cannula Nasal Cannula O2 Flow Rate 6.0 6.0 6.0 08/15/19 08/16/19 08/16/19 08/16/19 23:59 00:24 00:54 01:54 Pulse 79 81 77 Resp B/P (MAP) 150/68 (95) 151/70 (97) 154/70 (98) Pulse Ox 98 98 98 O2 Delivery Nasal Cannula Nasal Cannula Nasal Cannula Nasal Cannula O2 Flow Rate 6.0 6.0 6.0 6.0 08/16/19 08/16/19 08/16/19 08/16/19 02:24 02:54 03:51 03:51 Temp 98.4 98.4 Pulse 84 79 75 Resp B/P (MAP) 153/64 (93) 145/63 (90) 153/63 (93) Pulse Ox 96 97 97 O2 Delivery Nasal Cannula Nasal Cannula Nasal Cannula Nasal Cannula O2 Flow Rate 6.0 6.0 6.0 6.0 08/16/19 08/16/19 08/16/19 08/16/19 04:54 05:24 06:30 07:00 Pulse 75 74 78 80 Resp B/P (MAP) 140/65 (90) 145/65 (91) 151/58 (89) 143/58 (86) Pulse Ox 98 98 98 O2 Delivery Nasal Cannula Nasal Cannula Nasal Cannula Nasal Cannula O2 Flow Rate 6.0 6.0 6.0 6.0 08/16/19 08/16/19 08/16/19 08/16/19 08:00 08:45 09:27 10:00 Temp 97.9 97.9 Pulse 82 82 80 Resp B/P (MAP) 144/59 (87) 127/58 (81) 116/59 (78) Pulse Ox 100 100 96 O2 Delivery Nasal Cannula Nasal Cannula Nasal Cannula BiPAP/CPAP O2 Flow Rate 6.0 6.0 6.0 Intake and Output 08/15/19 08/15/19 08/16/19 14:59 22:59 06:59 Intake Total 2160 ml 805 ml 60 ml Output Total 650 ml Balance 2160 ml 155 ml 60 ml KERRY GOMEZ MD Aug 16, 2019 11:17
--- NOTE | 2019-08-16 11:19 | NUR ---
SS following for discharge planning. SS reviewed pt chart. Pt is from [facility], ; fax [phone]. SS contacted [facility] and spoke with Lore and confirmed that pt is a skilled rehabilitation resident from there facility and was able to return when medically stable. SS discussed with pt RN. COVID19 test ordered. SS will continue to follow for discharge planning.
[2019-08-16] MEDS ORDERED: MEROPENEM 500 MG in IV NORMAL SALINE 50ML 50 ML IV SCH (12:00)
--- NOTE | 2019-08-16 12:01 | PDOC ---
PULMONARY PROGRESS NOTES Vitals Vital Signs Date Time Temp Pulse Resp B/P (MAP) Pulse Ox O2 Delivery O2 Flow Rate FiO2 08/16/19 10:00 80 24 116/59 (78) 96 BiPAP/CPAP 08/16/19 09:27 6.0 08/16/19 08:45 97.9 97.9 General: Alert, No acute distress Lungs: Crackles Cardiovascular: S1, S2 Abdomen: Soft, Non-tender Extremities: No Edema Labs Laboratory Tests Test 08/15/19 07:34 08/15/19 08:15 08/15/19 09:58 08/15/19 11:46 Influenza Type A Antigen Negative (NEGATIVE) Influenza Type B Antigen Negative (NEGATIVE) White Blood Count 6.7 x10^3/uL (4.0-11.0) Red Blood Count 2.30 x10^6/uL (3.50-5.40) Hemoglobin 7.0 g/dL (12.0-15.5) Hematocrit 22.6 % (36.0-47.0) Mean Corpuscular Volume 98 fL (79-100) Mean Corpuscular Hemoglobin 30 pg (25-35) Mean Corpuscular Hemoglobin Concent 31 g/dL (31-37) Red Cell Distribution Width 19.5 % (11.5-14.5) Platelet Count 205 x10^3/uL (140-400) Neutrophils (%) (Auto) 87 % (31-73) Lymphocytes (%) (Auto) 11 % (24-48) Monocytes (%) (Auto) 2 % (0-9) Eosinophils (%) (Auto) 0 % (0-3) Basophils (%) (Auto) 0 % (0-3) Neutrophils # (Auto) 5.8 x10^3/uL (1.8-7.7) Lymphocytes # (Auto) 0.7 x10^3/uL (1.0-4.8) Monocytes # (Auto) 0.1 x10^3/uL (0.0-1.1) Eosinophils # (Auto) 0.0 x10^3/uL (0.0-0.7) Basophils # (Auto) 0.0 x10^3/uL (0.0-0.2) Segmented Neutrophils % 77 % (35-66) Band Neutrophils % 13 % (0-9) Lymphocytes % 9 % (24-48) Monocytes % 1 % (0-10) Nucleated Red Blood Cells 1 Platelet Estimate Adequate (ADEQUATE) Polychromasia Mod Anisocytosis Mod Macrocytosis Slight Ovalocytes Few Schistocytes Occ Sodium Level 139 mmol/L (136-145) Potassium Level 5.0 mmol/L (3.5-5.1) Chloride Level 101 mmol/L (98-107) Carbon Dioxide Level 22 mmol/L (21-32) Anion Gap 16 (6-14) Blood Urea Nitrogen 40 mg/dL (7-20) Creatinine 2.2 mg/dL (0.6-1.0) Estimated GFR (Cockcroft-Gault) 26.1 BUN/Creatinine Ratio 18 (6-20) Glucose Level 32 mg/dL (70-99) Lactic Acid Level 8.4 mmol/L (0.4-2.0) Calcium Level 8.6 mg/dL (8.5-10.1) Magnesium Level 2.2 mg/dL (1.8-2.4) Total Bilirubin 0.9 mg/dL (0.2-1.0) Aspartate Amino Transf (AST/SGOT) 114 U/L (15-37) Alanine Aminotransferase (ALT/SGPT) 64 U/L (14-59) Alkaline Phosphatase 145 U/L (46-116) Troponin I Quantitative 1.530 ng/mL (0.000-0.055) UC-Hoq-H-Type Natriuretic Peptide 56596 pg/mL (0-449) Total Protein 7.6 g/dL (6.4-8.2) Albumin 2.4 g/dL (3.4-5.0) Albumin/Globulin Ratio 0.5 (1.0-1.7) Glucose (Fingerstick) 165 mg/dL (70-99) 248 mg/dL (70-99) Test 08/15/19 11:50 08/16/19 08:40 08/16/19 09:05 Lactic Acid Level 4.1 mmol/L (0.4-2.0) 4.4 mmol/L (0.4-2.0) White Blood Count 10.0 x10^3/uL (4.0-11.0) Red Blood Count 3.64 x10^6/uL (3.50-5.40) Hemoglobin 11.2 g/dL (12.0-15.5) Hematocrit 35.5 % (36.0-47.0) Mean Corpuscular Volume 97 fL (79-100) Mean Corpuscular Hemoglobin 31 pg (25-35) Mean Corpuscular Hemoglobin Concent 32 g/dL (31-37) Red Cell Distribution Width 18.8 % (11.5-14.5) Platelet Count 173 x10^3/uL (140-400) Sodium Level 138 mmol/L (136-145) Potassium Level 5.6 mmol/L (3.5-5.1) Chloride Level 103 mmol/L (98-107) Carbon Dioxide Level 25 mmol/L (21-32) Anion Gap 10 (6-14) Blood Urea Nitrogen 47 mg/dL (7-20) Creatinine 2.1 mg/dL (0.6-1.0) Estimated GFR (Cockcroft-Gault) 27.5 BUN/Creatinine Ratio 22 (6-20) Glucose Level 107 mg/dL (70-99) Calcium Level 8.5 mg/dL (8.5-10.1) Total Bilirubin 1.0 mg/dL (0.2-1.0) Aspartate Amino Transf (AST/SGOT) 455 U/L (15-37) Alanine Aminotransferase (ALT/SGPT) 217 U/L (14-59) Alkaline Phosphatase 148 U/L (46-116) Total Protein 8.3 g/dL (6.4-8.2) Albumin 2.5 g/dL (3.4-5.0) Albumin/Globulin Ratio 0.4 (1.0-1.7) O2 Saturation 96 % (92-99) Arterial Blood pH 7.18 (7.35-7.45) Arterial Blood pCO2 at Patient Temp 66 mmHg (35-46) Arterial Blood pO2 at Patient Temp 108 mmHg (65-108) Arterial Blood HCO3 24 mmol/L (21-28) Arterial Blood Base Excess -5 mmol/L (-3-3) FiO2 7 lpm nc Laboratory Tests Test 08/16/19 08:40 08/16/19 09:05 White Blood Count 10.0 x10^3/uL (4.0-11.0) Red Blood Count 3.64 x10^6/uL (3.50-5.40) Hemoglobin 11.2 g/dL (12.0-15.5) Hematocrit 35.5 % (36.0-47.0) Mean Corpuscular Volume 97 fL (79-100) Mean Corpuscular Hemoglobin 31 pg (25-35) Mean Corpuscular Hemoglobin Concent 32 g/dL (31-37) Red Cell Distribution Width 18.8 % (11.5-14.5) Platelet Count 173 x10^3/uL (140-400) Sodium Level 138 mmol/L (136-145) Potassium Level 5.6 mmol/L (3.5-5.1) Chloride Level 103 mmol/L (98-107) Carbon Dioxide Level 25 mmol/L (21-32) Anion Gap 10 (6-14) Blood Urea Nitrogen 47 mg/dL (7-20) Creatinine 2.1 mg/dL (0.6-1.0) Estimated GFR (Cockcroft-Gault) 27.5 BUN/Creatinine Ratio 22 (6-20) Glucose Level 107 mg/dL (70-99) Lactic Acid Level 4.4 mmol/L (0.4-2.0) Calcium Level 8.5 mg/dL (8.5-10.1) Total Bilirubin 1.0 mg/dL (0.2-1.0) Aspartate Amino Transf (AST/SGOT) 455 U/L (15-37) Alanine Aminotransferase (ALT/SGPT) 217 U/L (14-59) Alkaline Phosphatase 148 U/L (46-116) Total Protein 8.3 g/dL (6.4-8.2) Albumin 2.5 g/dL (3.4-5.0) Albumin/Globulin Ratio 0.4 (1.0-1.7) O2 Saturation 96 % (92-99) Arterial Blood pH 7.18 (7.35-7.45) Arterial Blood pCO2 at Patient Temp 66 mmHg (35-46) Arterial Blood pO2 at Patient Temp 108 mmHg (65-108) Arterial Blood HCO3 24 mmol/L (21-28) Arterial Blood Base Excess -5 mmol/L (-3-3) FiO2 7 lpm nc Medications Active Scripts Medications Dose Route/Sig Max Daily Dose Days Date Category Aspirin Ec (Aspirin) 81 Mg Tablet.dr 81 Mg PO [id number] 30 08/02/19 Rx Cefdinir 300 Mg Capsule 300 Mg PO BID 7 08/02/19 Rx Nexium Capsule (Esomeprazole Magnesium) 40 Mg Capsule.dr 40 Mg PO DAILYAC 07/26/19 Reported Losartan Potassium 100 Mg Tablet 100 Mg PO DAILY 07/26/19 Reported Culturelle (Lactobacillus Rhamnosus Gg) 1 Each Cap.sprink 1 Cap PO BID 30 07/07/19 Rx Dok (Docusate Sodium) 100 Mg Capsule 100 Mg PO PRN BID PRN 30 07/07/19 Rx Mag-Al Plus Xs Suspension (Mag Hydrox/Al Hydrox/Simeth) 30 Ml Oral.susp 30 Ml PO PRN DAILY PRN 10 07/07/19 Rx Guaifenesin 100 Mg/5 Ml Liquid 200 Mg PO PRN Q4HRS PRN 10 07/07/19 Rx Buspirone Hcl 5 Mg Tablet 5 Mg PO PRN TID PRN 30 07/07/19 Rx Gabapentin (Gabapentin) 100 Mg Capsule 100 Mg PO TID 30 07/07/19 Rx Tylenol (Acetaminophen) 325 Mg Tablet 650 Mg PO PRN Q4HRS PRN 30 07/07/19 Rx Metoprolol Tartrate 25 Mg Tablet 25 Mg PO BID 30 07/07/19 Rx Benzonatate 200 Mg Capsule 1 Cap PO PRN TID 01/13/17 Reported Calcium (Calcium Carbonate) 500 Mg Tablet 500 Mg PO 01/13/17 Reported Multivitamins (Multivitamin) 1 Each Tablet 1 Tab PO DAILY 01/13/17 Reported Proair Hfa Inhaler (Albuterol Sulfate) 8.5 Gm Hfa.aer.ad 1 Puff INH PRN Q4HRS PRN 02/25/14 Reported Zoloft (Sertraline Hcl) 100 Mg Tablet 100 Mg PO DAILY08 02/25/14 Reported Synthroid (Levothyroxine Sodium) 50 Mcg Tablet 50 Mcg PO DAILY06 02/25/14 Reported Impression . FULL NOTE DICTATED RESP FAILURE MULTIFACTORIAL AGREE WITH CURRENT RX D/W SIM IREL[place] MD Aug 16, 2019 12:01
[2019-08-16] MEDS: METOPROLOL TART IMMED RELEASE 25 MG TABLET. PO SCH (12:06)
--- NOTE | 2019-08-16 12:20 | PDOC ---
Infectious Disease Note Vital Sign Vital Signs Vital Signs Date Time Temp Pulse Resp B/P (MAP) Pulse Ox O2 Delivery O2 Flow Rate FiO2 08/16/19 11:33 98 BiPAP/CPAP 08/16/19 10:00 80 24 116/59 (78) 08/16/19 09:27 6.0 08/16/19 08:45 97.9 97.9 Labs Lab Laboratory Tests Test 08/16/19 08:40 08/16/19 09:05 White Blood Count 10.0 x10^3/uL (4.0-11.0) Red Blood Count 3.64 x10^6/uL (3.50-5.40) Hemoglobin 11.2 g/dL (12.0-15.5) Hematocrit 35.5 % (36.0-47.0) Mean Corpuscular Volume 97 fL (79-100) Mean Corpuscular Hemoglobin 31 pg (25-35) Mean Corpuscular Hemoglobin Concent 32 g/dL (31-37) Red Cell Distribution Width 18.8 % (11.5-14.5) Platelet Count 173 x10^3/uL (140-400) Sodium Level 138 mmol/L (136-145) Potassium Level 5.6 mmol/L (3.5-5.1) Chloride Level 103 mmol/L (98-107) Carbon Dioxide Level 25 mmol/L (21-32) Anion Gap 10 (6-14) Blood Urea Nitrogen 47 mg/dL (7-20) Creatinine 2.1 mg/dL (0.6-1.0) Estimated GFR (Cockcroft-Gault) 27.5 BUN/Creatinine Ratio 22 (6-20) Glucose Level 107 mg/dL (70-99) Lactic Acid Level 4.4 mmol/L (0.4-2.0) Calcium Level 8.5 mg/dL (8.5-10.1) Total Bilirubin 1.0 mg/dL (0.2-1.0) Aspartate Amino Transf (AST/SGOT) 455 U/L (15-37) Alanine Aminotransferase (ALT/SGPT) 217 U/L (14-59) Alkaline Phosphatase 148 U/L (46-116) Total Protein 8.3 g/dL (6.4-8.2) Albumin 2.5 g/dL (3.4-5.0) Albumin/Globulin Ratio 0.4 (1.0-1.7) O2 Saturation 96 % (92-99) Arterial Blood pH 7.18 (7.35-7.45) Arterial Blood pCO2 at Patient Temp 66 mmHg (35-46) Arterial Blood pO2 at Patient Temp 108 mmHg (65-108) Arterial Blood HCO3 24 mmol/L (21-28) Arterial Blood Base Excess -5 mmol/L (-3-3) FiO2 7 lpm nc Micro Microbiology 08/15/19 Blood Culture - Preliminary, Resulted NO GROWTH AFTER 1 DAY Objective Assessment Fever - currenlty Lactic acidosis Anemia POA Hypoglycemia - POA CHF BNP [id number] POA Acute Resp failure on Bipap s/p Steroids 08/14 times one ATILIO Transamititis - Encephalopathy H/o Strep pneumo sepsis Plan Plan of Care Agree with Meropenem/Zyvox Add Dapto and Micafungin given risk factors Consult Cardiology - d/w Dr. Morgan Labs in am CBC with diff/CMP/BNP in am F/u labs and cults D/w Dr. Lowry Critically ill 35 mins CC time D/w nursing # [id number] JOSE DAVID ZAMORANO MD Aug 16, 2019 12:20
[2019-08-16] MEDS ORDERED: MICAFUNGIN 100 MG in IV DEXTROSE 5% 100ML 100 ML IV SCH (12:30)
--- NOTE | 2019-08-16 12:45 | NUR ---
Recvd call from patients son/next of kin for update on patients status. Advised son of current need for isolation and now needing BIPAP continuously after abnormal blood gas results. Son inquired if patient is going to recovery. Advised son it is not reasonable to state that fact. Son requested to visit patient so he could make a decision on how aggressively he would like to treat or if he would like to just make her comfortable. Spoke with ALEJANDRO who advised that the son may visit for 30 mins only.
[2019-08-16] MEDS ORDERED: DAPTOMYCIN IV SCH (13:00)
[2019-08-16] MEDS ORDERED: NORMAL SALINE IV SCH (13:00)
--- NOTE | 2019-08-16 13:09 | CONS ---
DATE OF CONSULTATION: 08/16/2019 LOCATION: The patient's room is 271. REQUESTING PHYSICIAN: Yvan Moore MD REASON FOR CONSULTATION: Sepsis. HISTORY OF PRESENT ILLNESS: The patient is a 78-year-old female with a history of strep pneumo sepsis back in 06/2019. She was treated and did well; however, she was readmitted at the beginning of July. Blood cultures at that time showed a coag-negative Staph consistent with a contamination. She improved and was discharged on cefdinir as well as steroids. She presented back to [facility] Emergency Room on the evening of the with shortness of air and questionable fever from [facility]. On arrival, she had a white count of 6.7, her hemoglobin was 7. Additionally, her sugar was 32. Lactic acid was 8.7. Troponin 1.5. ProBNP of 25,976. AST 14, ALT 64, alkaline phosphatase 145. Influenza screen was negative. Creatinine was 2.2. Chest x-ray, developing pulmonary infiltrates in bilateral upper lobes, right lower lobe could indicate multilobar pneumonia, chronic right mid lobe collapse and scarring and this is stable. She did have a chest x-ray on the , showed stable suspected chronic interstitial changes with superimposed interstitial infiltrate, decrease in the right suprahilar consolidation or atelectasis. She was given Solu-Medrol x 1, given Zosyn, started on Zyvox. She has been admitted to the Intensive Care Unit. Now, she is currently somewhat lethargic and on BiPAP, unable to answer any questions or review of systems. PAST MEDICAL HISTORY: Positive for hypertension, severe COPD, gastroesophageal reflux disease, anxiety, hypothyroidism, history of strep pneumo sepsis and pneumonia as well as hypothyroidism, acute on chronic respiratory failure, acute on chronic diastolic congestive heart failure, pulmonary hypertension, anxiety, acute kidney injury. PAST SURGICAL HISTORY: Positive for cholecystectomy, partial hysterectomy, partial thyroidectomy. REVIEW OF SYSTEMS: Unobtainable. ALLERGIES: LISTED CODEINE. SOCIAL HISTORY: No tobacco or alcohol in a senior living facility recently. FAMILY HISTORY: Positive for heart disease. CURRENT MEDICATIONS: Include Zyvox, meropenem has been ordered, albuterol, aspirin, BuSpar, Colace, Neurontin, lactobacillus, Synthroid, metoprolol, pantoprazole, Zoloft. PHYSICAL EXAMINATION: VITAL SIGNS: Current temperature is 100, pulse 80, respirations 24, blood pressure 116/59, satting 98% on BiPAP. CONSTITUTIONAL: She is lethargic. HEENT: Pupils are equal and reactive. NECK: Supple neck. LUNGS: Decreased in bases. No gross wheeze. HEART: S1, S2. ABDOMEN: Soft, no guarding. EXTREMITIES: No clubbing, cyanosis. She has 1-2+ edema. SKIN: Warm to touch. No generalized rash. NEUROLOGIC: She is nonresponsive. LABORATORY VALUES: White count this morning 10, hemoglobin 11.2, platelets of 173. Lactic most recently of 4.4, creatinine 2.1, glucose 107. AST 455, ALT 217, alkaline phosphatase 148. Chest x-ray, improved right upper lobe infiltrate. No significant changes on the left. IMPRESSION: 1. Fever, currently. 2. Lactic acidosis. 3. Anemia, present on admission. 4. Hypoglycemia, present on admission. 5. Congestive heart failure with a BNP of 25,976 present on admission. 6. Acute respiratory failure, on BiPAP, status post steroids 08/14 x 1. 7. Acute kidney injury. 8. Transaminitis. 9. Encephalopathy. 10. History of Strep pneumo sepsis. RECOMMENDATIONS: Agree with meropenem and Zyvox. Also, given her recent hospitalization and to cover bacteremia, we will add daptomycin as well as micafungin. We will consult Cardiology with her elevated BNP, elevated troponin and a history of heart failure. This was discussed with Dr. Morgan. Obtain labs in the morning, CBC with diff, CMP, BNP. We will follow up labs and cultures as discussed with Dr. Lowry. She is critically ill. I spent 35 minutes of critical care time and discussed with nursing. Thank you Dr. Moore for asking us to participate in the patient's care. If you have any questions, please do not hesitate to contact me. JOSE DAVID ZAMORANO MD DR: ROB/harman JOB#: [id number] / [id number]
--- NOTE | 2019-08-16 13:15 | CONS ---
DATE OF CONSULTATION: 08/16/2019 REASON FOR CONSULTATION: Heart failure. HISTORY OF PRESENT ILLNESS: The patient is a 78-year-old woman with past medical history as noted below, who was admitted to the hospital with acute progressive respiratory distress. She currently is on BiPAP therapy and further escalation of care has not been performed due to her request as a DNR. The patient apparently had been in her usual state of health and normally wears 2 liters of oxygen, but began to have worsening shortness of breath. She was noted to have an elevated temperature and due to concern for pneumonia. She was brought to the hospital. Upon arrival, she was noted to have an elevated lactate and severe anemia. This has been treated. She denies any syncope based on records. I am unable to talk to her right now because she is obtunded. PAST MEDICAL HISTORY: 1. COPD. 2. Diastolic heart failure. 3. History of recent bacteremia. 4. History of elevated troponin with an ejection fraction of 65% on echocardiogram in 07/15/2019. 5. Hypertension. 6. Moderate pulmonary hypertension with a PA pressure of 65. 7. Hypothyroidism. 8. Chronic kidney disease with current ATILIO. 9. History of bradycardia, but currently without any significant arrhythmias. SOCIAL HISTORY: Lives in a residential. FAMILY HISTORY: Noncontributory. ALLERGIES: CODEINE. CURRENT CARDIOVASCULAR REGIMEN: Dobutamine drip, metoprolol 25 mg p.o. b.i.d. REVIEW OF SYSTEMS: Unable to be obtained. PHYSICAL EXAMINATION: VITAL SIGNS: Afebrile, heart rate 83, respirations 24, blood pressure 116/59, O2 saturation 98% on BiPAP therapy. GENERAL: She is obtunded. Further examination is deferred due to cope virus issues and lack of PPE. LABORATORY STUDIES: Hemoglobin decreased from 11 to 7.2. Creatinine is elevated at 2.2, up from 1.1 in 07/30/2019. BNP is elevated to greater than 20,000. Troponin is elevated at 1.5. EKG demonstrates sinus rhythm with a septal ischemia and prior septal infarct. IMPRESSION: 1. Elevated troponin, likely in the setting of acute respiratory failure, demand ischemia. 2. Acute exacerbation of chronic obstructive pulmonary disease. 3. Acute kidney injury. 4. Acute anemia, likely contributing to her elevated troponin. RECOMMENDATIONS: Agree with supportive care from a cardiac standpoint. She had a recent normal echocardiogram. No further cardiac testing necessary at this time. In light of her severe anemia, interventions such as a cardiac catheterization would not be performed. She has overall poor prognosis. Continue treatment of multilobar pneumonia with antibiotics as tolerated. Thank you for this consultation. RICKIE MEYER MD DR: KYALAN/harman JOB#: [id number] / [id number]
--- NOTE | 2019-08-16 13:32 | CONS ---
DATE OF CONSULTATION: 08/16/2019 ATTENDING PHYSICIAN: Winston Serrano MD REASON FOR CONSULTATION: The patient seen in pulmonary consultation at the request of Dr. Serrano for [id number] hypoxemic hypercapnic respiratory failure. Initial arterial blood gas revealing a pH of 7.18, PaCO2 of 66, pO2 of 108. HISTORY OF PRESENT ILLNESS: The patient is well known to me from previous hospitalization. She has chronic respiratory failure, on home oxygen, presented with increasing shortness of breath. She has been hospitalized in the past back in early part of June, from 06/26/2019 to 07/07/2019, and then she was hospitalized again early July. She went home. She had been treated for pneumonia. She also had bacteremia during her previous admission. She [place] [facility] with fever, shortness of breath. Not feeling well. She had periodic episodes of hypoxemia. She was in distress upon arrival to the Emergency Room, she was also tachycardic. She is currently in the intensive care unit on BiPAP. She is being seen by Infectious Disease Service. She is currently receiving empiric antibiotics. She is on BiPAP. Discussion has been taken place with the patient and the family, she is now a do not intubate, do not resuscitate candidate. She is receiving IV Zyvox. She is also on dobutamine for hypotension. The patient reports fever, increasing cough, increasing shortness of breath. No nausea or vomiting. REVIEW OF SYSTEMS: Unobtainable secondary to the patient's condition. CURRENT MEDICATION: List was reviewed. ALLERGIES: CODEINE. 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 PAST SURGICAL HISTORY: Status post partial thyroidectomy, hysterectomy, cervical cancer. FAMILY HISTORY: No family history of lung disorders. SOCIAL HISTORY: She lost her in February, quit tobacco 20 years ago. PHYSICAL EXAMINATION: VITAL SIGNS: Stable. O2 saturation was greater than 92%. HEENT: Eyes, the sclerae were nonicteric. NECK: Jugular venous distention was not elevated. No lymphadenopathy. CHEST: Full expansion. LUNGS: Crackles throughout both lung hyde. CARDIOVASCULAR: Regular rate and rhythm with S1, S2, no S3. ABDOMEN: Soft, nontender, nondistended. EXTREMITIES: No clubbing, cyanosis. Minimal edema. NEUROLOGIC: The patient was awake, alert, following commands. A detailed neuro exam was not performed. LABORATORY DATA: Reviewed. Lactic acid level was elevated. White count is normal. Hemoglobin and hematocrit were noted at 7.0 and 22 upon admission. Repeat is 11 and 35. Serology for influenza was negative. AST and ALT were elevated. IMPRESSION: 1. Acute on chronic hypoxemic hypercapnic respiratory failure. 2. Abnormal x-ray compatible with pneumonia, multilobar, suspect gram-negative, possibly gram-positive. 3. Underlying interstitial lung disease. 4. Fever. 5. SARS COVID-2 suspect. 6. Metabolic acidosis related to increased work of breathing and sepsis. 7. Septic shock. 8. Acute blood loss anemia. 9. Acute renal failure. 10. Elevated liver chemistries. 11. Severe protein malnutrition. 12. Elevated troponin compatible with non-ST segment elevation myocardial infarction. PLAN: 1. The patient required inpatient hospitalization for all the above reasons. She will continue support with BiPAP, IV antibiotics. 2. ID has been consulted. We will defer to them for further adjustments on antibiotics. 3. IV fluids. 4. IV pressors for mean arterial pressure above 60. 5. The patient is currently do not resuscitate, do not intubate, suspect her clinical course will deteriorate and she may possibly succumb to her disease. 6. Consult Cardiology, already performed. I do appreciate the privilege in sharing in the patient's care. Total cumulative critical care time of 55 minutes reviewing data, chest x-ray, labs, and discussing the case with Dr. Rodriguez from Infectious Disease Service. SIM HWANG MD DR: MARCO A/harman JOB#: [id number] / [id number]
[2019-08-16] MEDS ORDERED: ACETAMINOPHEN 650 MG SUPP.RECT. PR PRN (13:45)
[2019-08-16 14:02] LABS: BASE EXCESS COOX -5 mmol/L (-3-3); HCO3 COOX 23 mmol/L (21-28); METHEMOGLOBIN 0.5 % (0.0-1.9); OXYHEMOGLOBIN 94.1 %; PCO2 COOX 57 mmHg (35-46); PO2 COOX 91 mmHg (65-108); SAT O2 COOX 95 % (92-99)
--- NOTE | 2019-08-16 18:04 | NUR ---
Patients son, Wade called and stated he discussed patients status with family and they decided to withdraw care and do comfort care only. Son stated that his father recently passed in January and they are aware of what it involves. They only want to make the patient comfortable at this point. Son is requesting a call when it appears patient is declining and actively passing so that a family member can possible be present. Pgd and received orders from Dr. Tsang for MS04 and Ativan.
[2019-08-16] MEDS ORDERED: MORPHINE SULFATE 2 MG/ML VIAL. IV PRN (18:15)
[2019-08-17 01:40] VITALS: BP 131/62
[2019-08-17 03:34] VITALS: BP 121/55
--- NOTE | 2019-08-17 07:22 | NUR ---
IP: Pt being tested for COVID requiring droplet/contact precautions with a face shield until results are verified.
[2019-08-17 07:45] VITALS: BP 121/55
[2019-08-17 08:00] VITALS: BP 116/53
--- NOTE | 2019-08-17 08:00 | NUR ---
Patient unresponsive O2 sat at 60's and exhibiting labor breathing. Placed 100% nonbreather mask on and patient's son,Wade updated of patient status. Son, Wade, verbalized comfort care only and wished to decrease O2 down to prior hospitalization at 2 liter NC.
[2019-08-17] MEDS: MORPHINE SULFATE 2 MG/ML VIAL. IV PRN ×4 (08:01→12:26)
--- NOTE | 2019-08-17 09:23 | PDOC ---
PULMONARY PROGRESS NOTES Subjective Patient not doing well, appears to be terminally ill, actively dying. Vitals Vital Signs Date Time Temp Pulse Resp B/P (MAP) Pulse Ox O2 Delivery O2 Flow Rate FiO2 08/17/19 08:01 90 Nasal Cannula 15.0 08/17/19 08:00 96.3 86 32 116/53 (74) 96.3 Lungs: Crackles Cardiovascular: S1, S2 Abdomen: Soft, Non-tender Extremities: No Edema Labs Laboratory Tests Test 08/15/19 09:58 08/15/19 11:46 08/15/19 11:50 08/16/19 08:40 Glucose (Fingerstick) 165 mg/dL (70-99) 248 mg/dL (70-99) Lactic Acid Level 4.1 mmol/L (0.4-2.0) 4.4 mmol/L (0.4-2.0) White Blood Count 10.0 x10^3/uL (4.0-11.0) Red Blood Count 3.64 x10^6/uL (3.50-5.40) Hemoglobin 11.2 g/dL (12.0-15.5) Hematocrit 35.5 % (36.0-47.0) Mean Corpuscular Volume 97 fL (79-100) Mean Corpuscular Hemoglobin 31 pg (25-35) Mean Corpuscular Hemoglobin Concent 32 g/dL (31-37) Red Cell Distribution Width 18.8 % (11.5-14.5) Platelet Count 173 x10^3/uL (140-400) Sodium Level 138 mmol/L (136-145) Potassium Level 5.6 mmol/L (3.5-5.1) Chloride Level 103 mmol/L (98-107) Carbon Dioxide Level 25 mmol/L (21-32) Anion Gap 10 (6-14) Blood Urea Nitrogen 47 mg/dL (7-20) Creatinine 2.1 mg/dL (0.6-1.0) Estimated GFR (Cockcroft-Gault) 27.5 BUN/Creatinine Ratio 22 (6-20) Glucose Level 107 mg/dL (70-99) Calcium Level 8.5 mg/dL (8.5-10.1) Total Bilirubin 1.0 mg/dL (0.2-1.0) Aspartate Amino Transf (AST/SGOT) 455 U/L (15-37) Alanine Aminotransferase (ALT/SGPT) 217 U/L (14-59) Alkaline Phosphatase 148 U/L (46-116) Total Protein 8.3 g/dL (6.4-8.2) Albumin 2.5 g/dL (3.4-5.0) Albumin/Globulin Ratio 0.4 (1.0-1.7) Procalcitonin 8.43 ng/mL (0.00-0.10) Test 08/16/19 09:05 08/16/19 11:35 08/16/19 12:45 O2 Saturation 96 % (92-99) 95 % (92-99) Arterial Blood pH 7.18 (7.35-7.45) 7.22 (7.35-7.45) Arterial Blood pCO2 at Patient Temp 66 mmHg (35-46) 57 mmHg (35-46) Arterial Blood pO2 at Patient Temp 108 mmHg (65-108) 91 mmHg (65-108) Arterial Blood HCO3 24 mmol/L (21-28) 23 mmol/L (21-28) Arterial Blood Base Excess -5 mmol/L (-3-3) -5 mmol/L (-3-3) FiO2 7 lpm nc 60 Oxyhemoglobin 94.1 % Methemoglobin 0.5 % (0.0-1.9) Carbon Monoxide, Quantitative 0.3 % (0.0-1.9) Lactic Acid Level 5.1 mmol/L (0.4-2.0) Laboratory Tests Test 08/16/19 11:35 08/16/19 12:45 O2 Saturation 95 % (92-99) Arterial Blood pH 7.22 (7.35-7.45) Arterial Blood pCO2 at Patient Temp 57 mmHg (35-46) Arterial Blood pO2 at Patient Temp 91 mmHg (65-108) Arterial Blood HCO3 23 mmol/L (21-28) Arterial Blood Base Excess -5 mmol/L (-3-3) Oxyhemoglobin 94.1 % Methemoglobin 0.5 % (0.0-1.9) Carbon Monoxide, Quantitative 0.3 % (0.0-1.9) FiO2 60 Lactic Acid Level 5.1 mmol/L (0.4-2.0) Medications Active Scripts Medications Dose Route/Sig Max Daily Dose Days Date Category Aspirin Ec (Aspirin) 81 Mg Tablet. 81 Mg PO DAILYWBKFT 30 08/02/19 Rx Cefdinir 300 Mg Capsule 300 Mg PO BID 7 08/02/19 Rx Nexium Capsule (Esomeprazole Magnesium) 40 Mg Capsule.dr 40 Mg PO DAILYAC 07/26/19 Reported Losartan Potassium 100 Mg Tablet 100 Mg PO DAILY 07/26/19 Reported Culturelle (Lactobacillus Rhamnosus Gg) 1 Each Cap.sprink 1 Cap PO BID 30 07/07/19 Rx Dok (Docusate Sodium) 100 Mg Capsule 100 Mg PO PRN BID PRN 30 07/07/19 Rx Mag-Al Plus Xs Suspension (Mag Hydrox/Al Hydrox/Simeth) 30 Ml Oral.susp 30 Ml PO PRN DAILY PRN 10 07/07/19 Rx Guaifenesin 100 Mg/5 Ml Liquid 200 Mg PO PRN Q4HRS PRN 10 07/07/19 Rx Buspirone Hcl 5 Mg Tablet 5 Mg PO PRN TID PRN 30 07/07/19 Rx Gabapentin (Gabapentin) 100 Mg Capsule 100 Mg PO TID 30 07/07/19 Rx Tylenol (Acetaminophen) 325 Mg Tablet 650 Mg PO PRN Q4HRS PRN 30 07/07/19 Rx Metoprolol Tartrate 25 Mg Tablet 25 Mg PO BID 30 07/07/19 Rx Benzonatate 200 Mg Capsule 1 Cap PO PRN TID 01/13/17 Reported Calcium (Calcium Carbonate) 500 Mg Tablet 500 Mg PO 01/13/17 Reported Multivitamins (Multivitamin) 1 Each Tablet 1 Tab PO DAILY 01/13/17 Reported Proair Hfa Inhaler (Albuterol Sulfate) 8.5 Gm Hfa.aer.ad 1 Puff INH PRN Q4HRS PRN 02/25/14 Reported Zoloft (Sertraline Hcl) 100 Mg Tablet 100 Mg PO DAILY08 02/25/14 Reported Synthroid (Levothyroxine Sodium) 50 Mcg Tablet 50 Mcg PO DAILY06 02/25/14 Reported Impression . IMPRESSION: 1. Acute on chronic hypoxemic hypercapnic respiratory failure. 2. Abnormal x-ray compatible with pneumonia, multilobar, suspect gram-negative, possibly gram-positive. 3. Underlying interstitial lung disease. 4. Fever. 5. SARS COVID-2 suspect. 6. Metabolic acidosis related to increased work of breathing and sepsis. 7. Septic shock. 8. Acute blood loss anemia. 9. Acute renal failure. 10. Elevated liver chemistries. 11. Severe protein malnutrition. 12. Elevated troponin compatible with non-ST segment elevation myocardial infarction. Plan . Patient actively dying, she is a DO NOT RESUSCITATE DO NOT INTUBATE RN had discussion with family, they wish to withdraw care and provide comfort only SIM HWANG MD Aug 17, 2019 09:23
[2019-08-17 10:46] VITALS: BP 104/42
--- NOTE | 2019-08-17 12:02 | PDOC ---
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 Vitals/I&O Vitals/I&O: Vital Signs Date Time Temp Pulse Resp B/P (MAP) Pulse Ox O2 Delivery O2 Flow Rate FiO2 08/17/19 11:13 16 82 Nasal Cannula 2.0 08/17/19 10:46 82 104/42 (62) 08/17/19 08:00 96.3 96.3 I & O 08/16/19 08/16/19 08/17/19 15:00 23:00 07:00 Intake Total 0 ml 0 ml 0 ml Balance 0 ml 0 ml 0 ml Physical Exam General: Other (unresponsive but appears comfortable) Heart: Regular rate, Normal S1 Lungs: Wheezing, Crackles Abdomen: Normal bowel sounds, Soft, No tenderness, No hepatosplenomegaly, No ma sses Extremities: No clubbing, No cyanosis, No edema, Normal pulses, No tenderness/swelling Skin: No rashes, No breakdown, No significant lesion Labs Labs: Laboratory Tests Test 08/16/19 12:45 Lactic Acid Level 5.1 mmol/L (0.4-2.0) Assessment and Plan Assessmemt and Plan Problems Medical Problems: (1) Acute on chronic respiratory failure Status: Acute (2) ATILIO (acute kidney injury) Status: Acute (3) Hypoglycemia Status: Acute (4) Multilobar lung infiltrate Status: Acute (5) NSTEMI (non-ST elevated myocardial infarction) Status: Acute (6) Septic shock Status: Acut Plan is comfort care only Prognosis terminal When necessary morphine and Ativan Comment Review of Relevant I have reviewed the following items elliott (where applicable) has been applied. Medications: Current Medications Medications (Trade) Dose Ordered Sig/Celia Route PRN Reason Start Time Stop Time Status Last Admin Dose Admin Meropenem 500 mg/ Sodium Chloride 50 ml @ 100 mls/hr Q12HR IV 08/16/19 12:00 08/16/19 18:30 DC 08/16/19 12:06 Micafungin Sodium 100 mg/Dextrose 100 ml @ 100 mls/hr Q24H IV 08/16/19 12:30 08/16/19 18:34 DC 08/16/19 14:06 Daptomycin 240 mg/ Sodium Chloride 50 ml @ 100 mls/hr Q48H IV 08/16/19 13:00 08/16/19 14:34 Acetaminophen (Tylenol Supp) 650 mg PRN Q4HRS PRN CA MILD PAIN / TEMP 08/16/19 13:45 08/16/19 14:06 Morphine Sulfate (Morphine Sulfate) 2 mg PRN Q1HR PRN IV SEVERE PAIN 08/16/19 18:15 08/17/19 11:13 TYRA VASQUEZ III DO Aug 17, 2019 12:02
--- NOTE | 2019-08-17 12:40 | NUR ---
Patient at 1240. Notified son,
--- NOTE | 2019-08-17 12:40 | NUR ---
Patient at 1240. Notified son,
--- NOTE | 2019-08-17 15:00 | NUR ---
Prepared body per protocol and [place] [facility] [place]
--- NOTE | 2019-08-19 17:38 | NUR ---
Patients daughter in law called inquiring about labs. No information given. Lab result still pending
== END 2019-08-17 15:00 | disposition expired | DRG 871 ==
LOC: ER 07:22 → CVICU 13:08 → 2 SOUTH 08-16 19:23
PROVIDERS: ADMIT Internal Medicine; ATTEND Internal Medicine
PROC: 30233N1 Transfusion of Nonautologous Red Blood Cells into Peripheral Vein, Percutaneous Approach (ICD-10-PCS; principal; 2019-08-15)
PROC: 5A09357 Assistance with Respiratory Ventilation, Less than 24 Consecutive Hours, Continuous Positive Airway Pressure (ICD-10-PCS; 2019-08-15)
DX: A41.9 Sepsis, unspecified organism (principal); J96.21 Acute and chronic respiratory failure with hypoxia; E43 Unspecified severe protein-calorie malnutrition; I21.4 Non-ST elevation (NSTEMI) myocardial infarction; J18.1 Lobar pneumonia, unspecified organism; J96.22 Acute and chronic respiratory failure with hypercapnia; R65.21 Severe sepsis with septic shock; D62 Acute posthemorrhagic anemia; G93.40 Encephalopathy, unspecified; I13.0 Hypertensive heart and chronic kidney disease with heart failure and stage 1 through stage 4 chronic kidney disease, or unspecified chronic kidney disease; I50.32 Chronic diastolic (congestive) heart failure; J44.0 Chronic obstructive pulmonary disease with (acute) lower respiratory infection; J44.1 Chronic obstructive pulmonary disease with (acute) exacerbation; Z68.1 Body mass index [BMI] 19.9 or less, adult; N17.9 Acute kidney failure, unspecified; E16.2 Hypoglycemia, unspecified; E89.0 Postprocedural hypothyroidism; F17.201 Nicotine dependence, unspecified, in remission; F41.9 Anxiety disorder, unspecified; I27.20 Pulmonary hypertension, unspecified; K22.2 Esophageal obstruction; N18.9 Chronic kidney disease, unspecified; R62.7 Adult failure to thrive; Y95 Nosocomial condition; Z51.5 Encounter for palliative care; Z66 Do not resuscitate; Z85.41 Personal history of malignant neoplasm of cervix uteri; Z90.711 Acquired absence of uterus with remaining cervical stump; Z99.81 Dependence on supplemental oxygen; K21.9 Gastro-esophageal reflux disease without esophagitis; M19.90 Unspecified osteoarthritis, unspecified site; Z90.49 Acquired absence of other specified parts of digestive tract; Z79.899 Other long term (current) drug therapy
CPT/HCPCS: 36415; 36600; 71045; 80053; 82805; 82962; 83605; 83735; 83880; 84145; 84484; 85007; 85025; 85027; 86850; 86900; 86901; 86920; 87040; 87635; 87804; 93005; 94640; 94660; 96361; 96365; 96375; 99285; J0878; J1940; J2020; J2185; J2248; J2270; J2543; J2930; J7030; J7040; J7042; J7060; P9016; G0378; U0002